=== PATIENT | female | born 1980 | race Caucasian/White ===

== ENCOUNTER 2025-02-17 15:07 | Outpatient (AMB) | payer OTHER, SELFPAY ==
--- NOTE | 2025-02-17 15:10 | A.OFFPC_ITS ---
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 Property Management Accountant Required: No Accompanied by: Self / Same As Patient Allergies No Known Allergies Allergy (Verified 02/17/25 15:10) Tobacco use date assessed: 02/17/25 Dental Screening Dental Screen Date: 02/17/25 Did you have a dental visit in the last 12 months?: No Did you have a dental problem in the last 6 months where you did not have access to dental care?: No Was dental information given to patient?: No HPI HPI Comments History of Present Illness Details History of Present Illness The patient is a 44-year-old female presenting with epigastric pain traveling to the right side and back pain. Epigastric Pain: - Experiences pain in the epigastric are a traveling to the right. - Pain is imani to gallbladder pain, acco mpanied by back pain. Health Maintenance - Discussed weight management as a babs rn. - Weight management clinic mentioned in conversation with reference to [place] location. -needs breast ca screen -needs cervical ca screen Review of Systems - Gastrointestinal: Reports epigastric p ain with radiation to the right side, and back pain. 10-point ROS reviewed and negative excep t as noted in HPI Allergies Medication History - Mentions Dicyclomine as an antispasmod ic used, with several refills available. Past Medical History - Obstructive Sleep Apnea - Panic Disorder - Depression - Post-Traumatic Stress Disorder (PTSD) - Hypertension Past Surgical History - Gastric sleeve procedure on 01/17/2022 - Laparoscopy on 01/17/2022 - Colonoscopy on 02/22/2021 Family History Current Substance Use Substance Use History Physical Exam General: No apparent distress. Alert and oriented x 3. Head: Normocephalic, atraumatic Eyes: Pupils equal, round, and reactive to light. Extraocular movements intact Throat: O ropharynx clear. Mucus membranes moist Neck: Supple. No l eft anterior descending artery distention. No jugular vein distention. No bruit. Cardiovascular: Regular rate and rhythm. Normal S1 and S2. No murmurs, rubs, or gallops Lungs: Clear to auscultation bilaterally. Breath sounds equal bilaterally. No rales, ronchi, or wheezes. Abdomen: Tender on light palpation in the epigastric area. Non-distended. Bowel sounds auscultated. No hepatosplenomegaly. No mass/rebound/guarding Extremities: No c lubbing, cyanosis, and edema. 2+ pulses Neuro: Central nerves II-XII grossly intact. Motor/sensory intact. Reflexes 2. Gait normal Skin: Warm, dry, and intact. No rash. Discussion Notes During the conversation, the patient's ongoing experience of epigastric pain, resembling gallbladder pain and accompanied by back pain, was the primary focus. Further exploration into the potential causes and necessary diagnostic steps, such as blood panels and assessments, were informally considered. Management discussions touched on weight management strategies, with mentions of the clinic in [place] where the patient reports receiving related care. Plan 1. Obstructive Sleep Apnea - Plan includes CPAP compliance and cons ideration of weight loss benefits. 2. Epigastric Pain - Plan involves potential diagnostic blo od panel tests and monitoring of symptoms for further diagnosis and management. Treatment Summary Anticapatory Guidance Patient Instructions - Please adhere to CPAP therapy as recom mended. - Manage weight through healthy dietary choices and consider following up at your weight management clinic. - Monitor and document the frequency, lo cation, and severity of epigastric pain. - Schedule follow-up appointments for fu rther evaluation and management of epigastric and other associated pains. [facility] Medical History (Updated 02/17/25 @ 16:08 by Roby Elise MD) PTSD (post-traumatic stress disorder) Epigastric pain Severe obesity LUIS FERNANDO (obstructive sleep apnea) Depression Panic disorder Morbid obesity Abdominal pain Surgical History (Updated 02/17/25 @ 15:53 by Chaya Neely MA) H/O colonoscopy S/P laparoscopic surgery H/O endoscopy Hx laparoscopic cholecystectomy Bariatric surgery status S/P gastric sleeve procedure Family History (Updated 02/17/25 @ 15:23 by Chaya Neely MA) Father High cholesterol High triglycerides High blood pressure Stroke Mother Uterus cancer High blood pressure Glaucoma (increased eye pressure) Lupus (systemic lupus erythematosus) Social History (Updated 02/17/25 @ 15:12 by Chaya Neely MA) Housing: House Alcohol intake: current Alcohol intake frequency: does not drink Patient Tobacco Use Status: Never used Tobacco service: No Current occupational status: employed Cognitive needs: No Hearing needs: No Vision needs: No Questionnaire PHQ-9 Over the last 2 weeks, how often have you been bothered by any of the following problems? 1. Little interest or pleasure in doing things: not at all 2. Feeling down, depressed, or hopeless: several days 3. Trouble falling or staying asleep, or sleeping too much: several days 4. Feeling tired or having little energy: several days 5. Poor appetite or overeating: several days 6. Feeling bad about yourself - or that you are a failure or have let yourself or your family down: several days 7. Trouble concentrating on things, such as reading the newspaper or watching television: not at all 8. Moving or speaking so slowly that other people could have noticed. Or the opposite - being so fidgety or restless that you have been moving around a lot more than usual: not at all 9. Thoughts that you would be better off or of hurting yourself in some way: not at all Total score: 5 Source: Developed by Drs. Magdi Simon, Kinga Loza, Neymar Pierson and colleagues, with an educational ritu from [employer]. Thrive Questionnaire Date Thrive assessed: 02/17/25 I am a: Patient What is your living situation today?: I have a place to live, but I am worried about losing it in the future Within the past 12 months, did the food you bought not last and you didn't have the money to get more?: Sometimes True Within the past 12 months, did you worry whether your food would run out before you got money to buy more?: Sometimes True Do you have trouble paying for medicines?: Yes Do you have trouble getting transportation to medical appointments?: Yes Do you have trouble paying your heating and electricity bill?: Yes Do you have trouble taking care of your child, family member or friend?: No Are you currently unemployed and looking for a job?: I choose not to answer this question Are you interested in more education?: Yes Please select the resources that you would like help with: Utilities and Job search/training Currently or been in a relationship where the following occur: No concerns reported THRIVE Score: 5 AUDIT C Alcohol Use Questionnaire (AUDIT-C) 1. How often do you have a drink containing alcohol?: Never 3. How often do you have six or more drinks on one occasion?: Never Total Score: 0 QASIM-7 AMB Questionnaire QASIM-7 Date QASIM - 7 assessed: 02/17/25 Feeling nervous, anxious, or on edge: 1 = Several days Not being able to stop or control worryin = Several days Worrying too much about different things: 1 = Several days Trouble relaxin = Several days Being so restless that it is hard to sit still: 1 = Several days Becoming easily annoyed or irritable: 1 = Several days Feeling afraid as if something awful might happen: 0 = Not at all Total QASIM-7 score (0-4 normal; 5-9 mild; 10-14 moderate; 15-21 severe): 6 Source: Developed by Drs. Magdi Simon, Kinga Loza, Neymar Pierson and colleagues, with an educational ritu from [employer]. Physical exam (Primary Care) Tobacco/Smoking Status: Tobacco use Status Patient Tobacco Use Status Never used Tobacco 02/17/25 15:12 Currently or been in a relationship where the following occur: No concerns reported Coding Level of Care Code New Pt Level 3 (12519) Diagnoses Establishing care with new doctor, encounter for Z76.89 Abdominal pain R10.9 Screening for diabetes mellitus Z13.1 Screening for lipoid disorders Z13.220 Encounter for screening mammogram for malignant neoplasm of breast Z12.31 Breast cancer screening modality: mammogram Hypertension screen Z13.6 Screening for depression Z13.31 Class 2 obesity E66.812 Dietary counseling Z71.3 Exercise counseling Z71.82 History of bariatric surgery Z98.84 Herniated gastric pouch as complication of bariatric surgery K95.89 History of sleep apnea Z86.69 Weight gain following gastric bypass surgery R63.5; Z98.84 Hypertension I10 Assessment & Plan Assessment & Plan (1) Establishing care with new doctor, encounter for: Code(s): Z76.89 - Persons encountering health services in other specified circumstances (2) Abdominal pain: Code(s): R10.9 - Unspecified abdominal pain Category: Medical (3) Screening for diabetes mellitus: Code(s): Z13.1 - Encounter for screening for diabetes mellitus (4) Screening for lipoid disorders: Code(s): Z13.220 - Encounter for screening for lipoid disorders (5) Screening for malignant neoplasm of breast: Code(s): Z12.39 - Encounter for other screening for malignant neoplasm of breast Qualifiers: Breast cancer screening modality: mammogram Qualified Code(s): Z12.31 - Encounter for screening mammogram for malignant neoplasm of breast (6) Hypertension screen: Code(s): Z13.6 - Encounter for screening for cardiovascular disorders (7) Screening for depression: Code(s): Z13.31 - Encounter for screening for depression (8) Class 2 obesity: Code(s): E66.812 - Obesity, class 2 (9) Dietary counseling: Code(s): Z71.3 - Dietary counseling and surveillance (10) Exercise counseling: Code(s): Z71.82 - Exercise counseling (11) History of bariatric surgery: Code(s): Z98.84 - Bariatric surgery status (12) Herniated gastric pouch as complication of bariatric surgery: Code(s): K95.89 - Other complications of other bariatric procedure (13) History of sleep apnea: Code(s): Z86.69 - Personal history of other diseases of the nervous system and sense organs (14) Weight gain following gastric bypass surgery: Code(s): R63.5 - Abnormal weight gain; Z98.84 - Bariatric surgery status (15) Hypertension: Code(s): I10 - Essential (primary) hypertension Plan Orders: Orders Complete Blood Count Auto Diff Today - Persons encountering health services in other specified circumstances Hepatitis B Surface Antibody Today - Persons encountering health services in other specified circumstances Hepatitis B Surface Antigen Today . - Persons encountering health services in other specified circumstances HIV Ab/Ag Today . - Persons encountering health services in other specified circumstances Lipid Panel Today - Persons encountering health services in other specified circumstances UA CC w/rflx Micro + Cult Today - Persons encountering health services in other specified circumstances Comprehensive Met. Panel Today - Persons encountering health services in other specified circumstances Hemoglobin A1c Today Z76.89 - Persons encountering health services in other specified circumstances Hepatitis C Antibody Today Z76.89 - Persons encountering health services in other specified circumstances MM screening mammo BI Today Z12.31 - Encounter for screening mammogram for malignant neoplasm of breast Referrals General Surgery Referral K95.89 - Other complications of other bariatric procedure, Z98.84 - Bariatric surgery status Nutrition/Dietitian Referral E66.812 - Obesity, class 2, Z76.89 - Persons encountering health services in other specified circumstances Medical Weight Management Referral E66.812 - Obesity, class 2, K95.89 - Other complications of other bariatric procedure, R63.5 - Abnormal weight gain, Z98.84 - Bariatric surgery status Medications: New omeprazole 20 mg PO DAILY 30 caps 2RF dicyclomine 10 mg PO BID 30 caps 0RF
[2025-02-17 15:16] VITALS: BP 138/86; PULSE 77; RESP 16; TEMP 36.6; O2SAT 100; BMI 38.7
--- OUTSIDE RECORDS SUMMARY | 2025-02-17 17:29 | XMS_ITS | Encounter Summary ---
Author Organization [facility] and [facility] Address [address] [place] [phone] Care Team Providers Care Hot Car Operator Name Role Phone Ivone Brown Primary Care Provider [phone] Reason for Visit * Reason Comments Medication Refill Encounter Details Date Type Department Care Team (Late st Contact Info) Description 11/22/2021 Refill [facility] [address] [place] [address] Sanjuanita Sharp PA [address] [place] [phone] Medication Refill Social History Tobacco Use Types Packs/Day Years Used Date Smoking Tobacco: Never Smokeless Tobacco: Never Alcohol Use Standard Drinks/Week Comments No 0 (1 standard drink = 0.6 oz pur e alcohol) AUDIT-C Answer Date Recorded Q1: How often do you have a drink containing alc ohol? Never 01/20/2021 Average Number of Drinks Not on file 021 Frequency of Binge Drinking Not on file 01/09 Comments No Sex and Gender Information Value Date Recorded Sex Assigned at Female 12/20/2019 12:35 AM EDT Legal Sex Female 5:00 PM EST Gender Identity Female 12/20/2019 12:35 AM EDT Sexual Orientation Not on file documented as of this encounter Plan of Treatment Not on file documented as of this encounter Visit Diagnoses Not on filedocumented in this encounter Additional Health Concerns Infection Onset Date Last Indicated Resolved Time R/O Respiratory Virus 04/09/2022 04/09/20222021 6:39 PM EDT R/O COVID-19 04/09/2022 04/09/2022 04/09/2022 6:39 PM EDT documented as of this encounter Care Teams Hot Car Operator Relationship Specialty Start Date End Date Ivone Brown PA [address] [place] [address] PCP - General Physician Supervisor Sound Technician 08/04/24 documented as of this encounter
--- OUTSIDE RECORDS SUMMARY | 2025-02-17 17:29 | XMS_ITS | Encounter Summary ---
Author Organization [facility] and [facility] Address [address] [place] [phone] Care Team Providers Care Sponge Clipper Name Role Phone Ivone Brown Primary Care Provider [phone] Reason for Visit * Reason Comments Medication Refill Encounter Details Date Type Department Care Team (Late st Contact Info) Description 12/02/2021 Refill [facility] [address] [place] [address] Sanjuanita Sharp PA [address] [place] [phone] Medication Refill Social History Tobacco Use Types [...] documented as of this encounter Care Teams Sponge Clipper Relationship Specialty Start Date End Date Ivone Brown PA [address] [place] [address] PCP - General Physician Trading Specialist 08/04/24 documented as of this encounter
--- OUTSIDE RECORDS SUMMARY | 2025-02-17 17:29 | XMS_ITS | Encounter Summary ---
Author Organization [facility] and [facility] Address [address] [place] [phone] Care Team Providers Care Bioengineer Name Role Phone Ivone Brown Primary Care Provider [phone] Reason for Visit * Reason Comments Medication Refill Encounter Details Date Type Department Care Team (Late st Contact Info) Description 10/22/2021 Refill [facility]Note 3] [address] [place] [address] Sanjuanita Sharp PA [address] [place] [phone] Medication Refill Social History Tobacco Use Types [...] documented as of this encounter Care Teams Bioengineer Relationship Specialty Start Date End Date Ivone Brown PA [address] [place] [address] PCP - General Physician Embossing Press Operator 08/04/24 documented as of this encounter
--- OUTSIDE RECORDS SUMMARY | 2025-02-17 17:30 | XMS_ITS | Encounter Summary ---
Author Organization [facility] and [facility] Address [address] [place] [phone] Care Team Providers Care Consulting Technical Manager Name Role Phone Ivone Brown Primary Care Provider [phone] Encounter Details Date Type Department Care Team (Late st Contact Info) Description 12/07/2020 Scanned Document [facility] at [address] [place] [address] Miguel Angel, RN Social History Tobacco Use Types Packs/Day Years Used Date Smoking Tobacco: Never Alcohol Use Standard Drinks/Week Comments No 0 (1 standard drink = 0.6 oz pur e alcohol) AUDIT-C Answer Date Recorded Frequency of Alcohol Consumption Never 07/16/2018 Average Number of Drinks Not on file 019 Frequency of Binge Drinking Not on file 10/2018 Comments Unknown Sex and Gender Information Value Date Recorded [...] Onset Date Last Indicated Resolved Time R/O COVID-19 01/15/2021 01/15/2021 01/15/2021 3:12 PM EDT R/O COVID-19 02/02/2021 02/02/2021 02/02/2021 3:02 PM EDT R/O COVID-19 04/06/2021 04/06/2021 04/06/2021 3:35 PM EDT R/O Respiratory Virus 04/09/2022 04/09/20222021 6:39 PM EDT R/O COVID-19 04/09/2022 04/09/2022 04/09/2022 6:39 PM EDT documented as of this encounter Care Teams Consulting Technical Manager Relationship Specialty Start Date End Date Ivone Brown PA [address] [place] [phone] PCP - General Physician Petrologist 08/04/24 documented as of this encounter
--- OUTSIDE RECORDS SUMMARY | 2025-02-17 17:30 | XMS_ITS | Encounter Summary ---
Author Organization [facility] Address [address] [place] [address] Phone Care Team Providers Care Inside Technical Sales Representative Name Role Phone Ivone Brown Primary Care Provider [phone] Encounter Details Date Type Department Care Team (Late st Contact Info) Description 08/05/2024 Documentation [facility] [address] [place] [address] Edna Downs LMSW Social History Tobacco Use Types Packs/Day Years Used Date Smoking Tobacco: Never Smokeless Tobacco: Never Alcohol Use Standard Drinks/Week Comments No 0 (1 standard drink = 0.6 oz pur e alcohol) AUDIT-C Answer Date Recorded Q1: How often do you have a drink containing alc ohol? Never 01/20/2021 Average Number of Drinks Not on file Frequency of Binge Drinking Not on file 01/09 Overall Financial Resource Strain (CARDIA) Answe r Date Recorded How hard is it for you to pa y for the very basics like food, housing, medical care, and heating? Somewhat hard 08/04/2024 PHQ-2 Answer Date Recorded PHQ-2 Total Score 4 08/04/2024 Exercise Vital Sign Answer Date Recorde d On average, how many days pe r week do you engage in moderate to strenuous exercise (like a brisk walk)? 6 days 08/04/2024 On average, how many minutes do you engage in exercise at this level? 30 min 08/04/2024 PRAPARE - Transportation Answer Date Re corded In the past 12 months, has l ack of transportation kept you from medical appointments or from getting medications? No 07/13 In the past 12 months, has l ack of transportation kept you from meetings, work, or from getting things needed for daily living? No 08/04/2024 Housing Stability Answer Date Recorded What is your living situation today? I have a st [facility] place to live 08/04/2024 Housing Stability Not on file 08/04/2024 Interpersonal Safety Answer Date Record ed Is there anyone in your life that is hurting or threatening you in anyway? Not on file 03/27/2024 Physical Indicators of Abuse No evidence of phys ical abuse 03/27/2024 Comments No Sex and Gender Information Value Date Recorded Sex Assigned at Female 12/20/2019 12:35 AM EDT Legal Sex Female 5:00 PM EST Gender Identity Female 12/20/2019 12:35 AM EDT Sexual Orientation Not on file documented as of this encounter Plan of Treatment Not on file documented as of this encounter Visit Diagnoses Not on filedocumented in this encounter Additional Health Concerns Assessment Noted Time PHQ-9 Depression Total Score: 15 025 11:31 AM EST documented as of this encounter Care Teams Inside Technical Sales Representative Relationship Specialty Start Date End Date Ivone Brown PA [address] [place] [address] PCP - General Physician Mail Agent 08/04/24 documented as of this encounter
--- OUTSIDE RECORDS SUMMARY | 2025-02-17 17:30 | XMS_ITS | Encounter Summary ---
Author Organization [facility] Address [address] [place] [address] Phone Care Team Providers Care Tax Compliance Representative Name Role Phone Ivone Brown Primary Care Provider [phone] Reason for Visit * Reason Comments Medication Refill Encounter Details Date Type Department Care Team (Late st Contact Info) Description 03/03/2022 Refill [facility] [address] [address] Shannon Nunn MD [address] [place], [place] [phone] Medication Refill Social History Tobacco Use Types [...] documented as of this encounter Visit Diagnoses Diagnosis Seasonal allergies- Primary Allergic rhinitis, cause unspecified documented in this encounter Additional Health Concerns Infection Onset Date Last Indicated Resolved Time R/O Respiratory Virus 04/09/2022 04/09/20222021 6:39 PM EDT R/O COVID-19 04/09/2022 04/09/2022 04/09/2022 6:39 PM EDT documented as of this encounter Care Teams Tax Compliance Representative Relationship Specialty Start Date End Date Ivone Brown PA [address] [place] [phone] PCP - General Physician Crusher Operator 08/04/24 documented as of this encounter
--- OUTSIDE RECORDS SUMMARY | 2025-02-17 17:30 | XMS_ITS | Encounter Summary ---
Author Organization [facility] Address [address] [place] [address] Phone Care Team Providers Care Natural Resources Technician Name Role Phone Ivone Brown Primary Care Provider [phone] Reason for Visit * Reason Comments Medication Refill Encounter Details Date Type Department Care Team (Late st Contact Info) Description 03/06/2023 [place] [address] Shannon Nunn MD [address] [place], [place] [phone] Medication Refill Social History Tobacco Use Types [...] of Binge Drinking Not on file 01/09 PHQ-2 Answer Date Recorded PHQ-2 Total Score 0 03/13/2022 Interpersonal Safety Answer Date Record ed Is there anyone in your life that is hurting or threatening you in anyway? Not on file 01/15/2023 Physical Indicators of Abuse No evidence of phys ical abuse 01/15/2023 Comments No Sex and Gender Information Value Date Recorded Sex Assigned at Female 12/20/2019 12:35 AM EDT Legal Sex Female 5:00 PM EST Gender Identity Female 12/20/2019 12:35 AM EDT Sexual Orientation Not on file documented as of this encounter Plan of Treatment Not on file documented as of this encounter Visit Diagnoses Diagnosis Seasonal allergies Allergic rhinitis, cause unspecified documented in this encounter Additional Health Concerns Assessment Noted Time PHQ-9 Depression Total Score: 0 03/13/20 22 10:00 AM EDT documented as of this encounter Care Teams Natural Resources Technician Relationship Specialty Start Date End Date Ivone Brown PA [address] [place] [phone] PCP - General Physician Data Entry 08/04/24 documented as of this encounter
--- OUTSIDE RECORDS SUMMARY | 2025-02-17 17:30 | XMS_ITS | Encounter Summary ---
Author Organization [facility] ou and Home Health Address [address] [place] [address] Care Team Providers Care Odd Ticket Clerk Name Role Phone Ivone Brown Primary Care Provider [phone] Reason for Visit * Reason Comments Medication Refill Encounter Details Date Type Department Care Team (Late st Contact Info) Description 01/19/2022 Refill [facility] Internal [facility] [place] [address] [address] Perla Gomez PA [address] [place] [phone] Medication Refill Social History Tobacco Use Types [...] AM EDT Sexual Orientation Not on file COVID-19 Exposure Response Date Recorded In the last 10 days, have yo u been in contact with someone who was confirmed or suspected to have Coronavirus/COVID-19? No / Unsure 01/17/2022 9:58 AM EDT documented as of this encounter Plan of Treatment Not on file documented as of this encounter Visit Diagnoses Not on filedocumented in this encounter Additional Health Concerns Infection Onset Date Last Indicated Resolved Time R/O Respiratory Virus 04/09/2022 04/09/20222021 6:39 PM EDT R/O COVID-19 04/09/2022 04/09/2022 04/09/2022 6:3 9 PM EDT documented as of this encounter Care Teams Odd Ticket Clerk Relationship Specialty Start Date End Date Ivone Brown PA [address] [place] [address] PCP - General Physician Washing Machine Operator 08/04/24 documented as of this encounter
--- OUTSIDE RECORDS SUMMARY | 2025-02-17 17:30 | XMS_ITS | Encounter Summary ---
Author Organization [facility] [employer] [facility] and [facility] Address [address] [place] [address] Care Team Providers Care Accountant Cost Name Role Phone Ivone Brown Primary Care Provider [phone] Reason for Visit * Reason Onset Date Comments Medication Refill 07/10/2023 Encounter Details Date Type Department Care Team (Late st Contact Info) Description 07/10/2023 Refill [facility] at [address] [place], [place] [address] Zaheer Mcdaniel MD MPH [address] [place] [address] Medication Refill Social History Tobacco Use Types [...] documented as of this encounter Care Teams Accountant Cost Relationship Specialty Start Date End Date Ivone Brown PA [address] [place] [address] PCP - General Physician Director Of In Service Education 08/04/24 documented as of this encounter
--- OUTSIDE RECORDS SUMMARY | 2025-02-17 17:30 | XMS_ITS | Encounter Summary ---
Author Organization [facility] ou and Home Health Address [address] [place] [address] Care Team Providers Care Anesthesiologist/Physician Name Role Phone Ivone Brown Primary Care Provider [phone] Reason for Visit * Reason Comments Medication Refill Encounter Details Date Type Department Care Team (Late st Contact Info) Description 01/06/2022 Refill [facility] Internal Medicine [place] [address] [address] Perla Gomez PA [address] [place] [phone] Medication Refill Social History Tobacco Use [...] documented as of this encounter Care Teams Anesthesiologist/Physician Relationship Specialty Start Date End Date Ivone Brown PA [address] [place] [address] PCP - General Physician Workday Consultant 08/04/24 documented as of this encounter
--- OUTSIDE RECORDS SUMMARY | 2025-02-17 17:30 | XMS_ITS | Encounter Summary ---
Author Organization [facility] ou and Home Health Address [address] [place] [address] Care Team Providers Care Heating Mechanic Name Role Phone Ivone Brown Primary Care Provider [phone] Reason for Visit * Reason Comments Medication Refill Encounter Details Date Type Department Care Team (Late st Contact Info) Description 03/03/2022 Refill [facility] Internal [facility] [place] [address] [address] Perla Gomez PA [address] [place] [phone] Medication Refill Social History Tobacco Use [...] documented as of this encounter Care Teams Heating Mechanic Relationship Specialty Start Date End Date Ivone Brown PA [address] [place] [address] PCP - General Physician Compliance Engineer 08/04/24 documented as of this encounter
--- OUTSIDE RECORDS SUMMARY | 2025-02-17 17:30 | XMS_ITS | Encounter Summary ---
Author Organization [facility] ou and Home Health Address [address] [place] [address] Care Team Providers Care Gift Packer Name Role Phone Ivone Brown Primary Care Provider [phone] Reason for Visit * Reason Comments Medication Refill Encounter Details Date Type Department Care Team (Late st Contact Info) Description 12/25/2021 Refill [facility] [place] [address] [address] Perla Gomez PA [address] [place] [phone] Medication Refill Social History Tobacco Use [...] documented as of this encounter Care Teams Gift Packer Relationship Specialty Start Date End Date Ivone Brown PA [address] [place] [address] PCP - General Physician Agricultural Economist 08/04/24 documented as of this encounter
--- OUTSIDE RECORDS SUMMARY | 2025-02-17 17:30 | XMS_ITS | Encounter Summary ---
Author Organization [facility] Address [address] [place] [address] Care Team Providers Care Night Warehouse Selector Name Role Phone Ivone Brown Primary Care Provider [phone] Reason for Visit * Reason Comments Medication Refill Encounter Details Date Type Department Care Team (Late st Contact Info) Description 08/20/2021 Refill [facility] at [address] [facility] [address] [place] [address] Sanjuanita Sharp PA [address] [place] [phone] Medication Refill Social History Tobacco Use Types [...] documented as of this encounter Care Teams Night Warehouse Selector Relationship Specialty Start Date End Date Ivone Brown PA [address] [place] [address] PCP - General Physician Property Management Coordinator 08/04/24 documented as of this encounter
--- OUTSIDE RECORDS SUMMARY | 2025-02-17 17:30 | XMS_ITS | Encounter Summary ---
Author Organization [facility] ou and Home Health Address [address] [place] [address] Care Team Providers Care Bakery Demonstrator Name Role Phone Ivone Brown Primary Care Provider [phone] Encounter Details Date Type Department Care Team (Late st Contact Info) Description 08/23/2020 Scanned Document [facility] PM Rheumatology [address] [place], [place] [phone] Rigoberto Bautista MD [address] [place], [place] [phone] [place] [address] Social History Tobacco Use Types Packs/Day Years [...] Exposure Response Date Recorded In the last month, have you been in contact with someone who was confirmed or suspected to have Coronavirus / COVID-19? No / Unsure 08/02/2020 4:10 PM EST documented as of this encounter Plan of [...] documented as of this encounter Care Teams Bakery Demonstrator Relationship Specialty Start Date End Date Ivone Brown PA [address] [place] [address] PCP - General Physician Upsetter Helper 08/04/24 documented as of this encounter
--- OUTSIDE RECORDS SUMMARY | 2025-02-17 17:30 | XMS_ITS | Clinical Summary ---
Author Organization [address] Address [address] [place] [phone] Phone Care Team Providers Care Bean Picker Machine Operator Name Role Phone Ivone Brown Primary Care Provider [phone] Allergies Active Allergy Reactions Criticality Noted Date Comments Asa-Calcium Mrfk-Dqt-Spkwkfno Shortness Of Breath High 01/14/2019 Aspirin 01/17/2019 Latex Shortness Of Breath High 04/20/2022 Penicillins Shortness Of Breath High 02/02/2021 Shellfish Derived 06/12/2019 Medications cholecalciferol, vitamin D3, 10 mcg (400 unit) capsule Take 1 capsule (400 Units total) by mouth daily. Active cyanocobalamin 1000 MCG tablet Take 1 tablet (1,000 mcg total) by mouth daily. Active multivit-min/iro n/folic acid/K (BARIATRIC MULTIVITAMINS ORAL) Take by mouth. Activ e omega-3 fatty acids 1,000 mg capsule Take 2 capsules (2 g total) by mouth daily. Active biotin 1 mg Cap Take by mouth. Active microfibrllar collagen (HEMOSTAT) 70 X 35 mm pad Apply topically as needed. Active dicyclomine (BENTYL) 20 mg tablet Take 1 tablet (20 mg total) by mouth 4 (four) times daily as needed for pain for up to 5 days. 20 tablet 03/27/20 Active nystatin (MYCOSTATIN) 100,000 unit/gram powderIndication s:Rash,Candidias is, intertrigo Apply 1 Application topically 3 (three) times daily. 60 g 1 08/04/19 25 Active atenolol (TENORMIN) 50 MG tablet Take 50 mg by mouth daily 2021 Discontinued Active Problems Problem Noted Date Diagnosed Date S/P gastric sleeve procedure 03/13/2022 Bariatric surgery status 03/13/2022 Morbid obesity (HC Code) 01/17/2022 Panic disorder 01/03/2021 Depression 01/03/2021 Severe LUIS FERNANDO (obstructive slee p apnea) AHI 34.3 events/hour, Edgardo SaO2 72% [Dx 08/2020] 09/20/2020 Overview (09/20/2020): PSG 09/03/20 - AHI 34 Severe obesity (HC Code) wt 350 pounds Epigastric pain 06/12/2019 PTSD (post-traumatic stress disorder) Resolved Problems Problem Noted Date Diagnosed Date Resolved Date Essential hypertension 07/16/202008/04 Family History Medical History Relation Name Comments Thyroid disease Brother High cholesterol Father Hypertension Father Stroke Father Blindness Mother Cancer Mother Uterine Cataracts Mother Diabetes Mother Hypertension Mother Kidney disease Mother Lung disease Mother Colon cancer Sister Relation Name Status Comments Brother Father CVA Mother of an acci dent Sister Alive Social History Tobacco Use Types Packs/Day Years Used Date Smoking Tobacco: Never Smokeless Tobacco: Never Tobacco Cessation:Counseling Given: Not Answered Alcohol Use Standard Drinks/Week Comments No 0 [...] your living situation today? I have a [facility] place to live 08/04/2024 Housing Stability Not [...] AM EDT Sexual Orientation Not on file Last Filed Vital Signs Vital Sign Reading Time Taken Comments Blood Pressure 124/72 08/04/2024 11:39 AM EST Pulse 60 08/04/2024 11:39 AM EST Temperature 37.2 C (99 F) 08/04/2024 11:39 AM EST Respiratory Rate 14 08/04/2024 11:39 AM EST Oxygen Saturation 98% 08/04/2024 11:39 AM EST Inhaled Oxygen Concentration - - Weight 93.7 kg (206 lb 9.6 oz) 08/04/2024 11:39 AM EST Height 166.4 cm (5' 5.5 ) 08/04/2024 11:39 AM ES T Body Mass Index 33.86 08/04/2024 11:39 AM EST Plan of Treatment Health Maintenance Due Date Last Done Comments HIV screening 11/02/1991 Hepatitis C screening 1996 Tetanus adult (Td q 10,TDAP once) 1998 Cervical cancer screening 11/02/1999 Breast cancer screening 2018 Covid-19 vaccine series ( season) 2025 Influenza vaccine 02/09/2025 Lipid disorder screening 01/24/2026 01/24/2021 Diabetes screening 03/27/2027 03/27/2024, 0 12/26/2022, 04/09/2022, Additional history exists Colon cancer screening, Colonoscopy 02/22/2031 02/22/2021, 02/22/2021 RSV Immunization (1 - 1-dose 75+ series) 2053 Meningococcal B Vaccine Aged Out No l onger eligible based on patient's age to complete this topic Meningococcal Vaccine Aged Out No joelle pooja eligible based on patient's age to complete this topic Pneumococcal Vaccine (2 - 49 years) Aged Out No longer eligible based on patient's age to complete this topic Procedures Procedure Name Priority Date/Time Associated Diagnosis Comments COMPREHENSIVE METABOLIC PANEL Timed 03/27/2024 9:23 AM EDT COLONOSCOPY (IMAGES) Routine 02/22/2021 7:24 AM EDT CHOLESTEROL, TOTAL Routine 01/24/2021 10 :51 AM EDT Severe obesity (HC Code) wt 350 pounds Essential hypertension Severe LUIS FERNANDO (obstructive sleep apnea) AHI 34.3 events/hour, Edgardo SaO2 72% [Dx 08/2020] from Last 3 Months or Most Recently Relevant to Health Maintenance Results * (ABNORMAL) Comprehensive metabolic panel (03/27/2024 9:23 AM EDT) Sodium 140 136 - 144 mmol/L 03/27/2024 10:00 AM [facility] Potassium 3.9 3.3 - 5.3 mmol/L 03/27/2024 10:00 AM T [facility] Chloride 106 98 - 107 mmol/L 03/27/2024 10:00 AM T [facility] CO2 28 20 - 30 mmol/L 03/27/2024 10:00 AM [facility] Anion Gap 6(L) 7 - 17 03/27/2024 10:00 AM [facility] Glucose 88 70 - 100 mg/dL 03/27/2024 10:00 AM [facility] BUN 15 6 - 20 mg/dL 03/27/2024 10:00 AM [facility] Creatinine 0.67 0.40 - 1.30 mg/dL 03/27/2024 10:00 AM [facility] Calcium 8.8 8.8 - 10.2 mg/dL 03/27/2024 10:00 AM [facility] BUN/Creatinine Ratio 22.4 8.0 - 23.0 03/27/2024 10:00 AM [facility] Total Protein 6.6 5.9 - 8.3 g/dL 024 10:00 AM [facility] Comment:As of 2023, th e reference interval for Total Protein has been changed from (6.6 to 8.7 g/dL) to (5.9 to 8.3 g/dL). Albumin 3.5(L) 3.6 - 5.1 g/dL 03/27/2024 10:00 AM [facility] Comment:As of 2023, th e reference interval for Albumin has been changed from (3.6 to 4.9 g/dL) to (3.6 to 5.1 g/dL). Total Bilirubin 0.4 <=1.2 mg/dL 03/27/20 24 10:00 AM [facility] Alkaline Phosphatase 67 9 - 122 U/L 03/27/2024 10:00 AM [facility] Alanine Aminotransferase (ALT) 16 10 - 35 U/L 03/27/2024 10:00 AM [facility] Comment:Calcium dobesilate c an cause artificially low ALT results at therapeutic concentrations Aspartate Aminotransferase (AST) 20 10 - 35 U/L 03/27/2024 10:00 AM [facility] Globulin 3.1 2.0 - 3.9 g/dL 03/27/2024 10:00 AM [facility] Comment:As of 2023, th e reference interval for Globulin has been changed from (2.3 to 3.5 g/dL) to (2.0 to 3.9 g/dL). A/G Ratio 1.1 1.0 - 2.2 03/27/2024 10:00 AM [facility] AST/ALT Ratio 1.3 Reference Range Not Established 03/27/2024 10:00 AM [facility] eGFR (Creatinine) >60 >=60 mL/min/1.73m2 03/27/2024 10:00 AM EDT [facility] Comment: [facility] utilizes CKD-EPI Creatinine 2020 to report eGFR. Values < 60 mL/min/1.73 m2 may indicate CKD if present for more than three months AND creatinine is at steady state. The eGFR provides a rough estimate of kidney function. For further guidance, please refer to the CKD: Adult Classification Counselor Signature pathway. Blood Venipuncture / Unknown 03/27/2024 9:23 AM EDT 03/27/2024 9:33 AM EDT us Breana Estrada MD LAB BLOOD ORDERABLES Fin al Result [address] [phone] * Colonoscopy (02/22/2021 7:24 AM EDT) Colonoscopy Endoscopy Patient Name: Joaquin De León Procedure Date: 02/22/2021 7:24 AM Date of : 1980 Age: 40 Gender: Female Admit Type: Outpatient [facility] #: [id number] Note Status: Finalized Attending MD: Radha Mckeon MD Procedure: Colonoscopy Indications: Screening in patient at increased risk: Family history of 1st-degree relative with colorectal cancer before age 60 years Providers: Radha Mckeon MD Referring MD: Shannon Nunn (Referring MD) Medicines: Monitored Anesthesia Care Complications: No immediate complications. Requesting Provider: Procedure: After obtaining informed consent, the scope was passed under direct vision. Throughout the procedure, the patient's blood pressure, pulse, and oxygen saturations were monitored continuously. The [id number] was introduced through the anus and advanced to the cecum, identified by appendiceal orifice and ileocecal valve. The colonoscopy was performed without difficulty. The patient tolerated the procedure well. The quality of the bowel preparation was evaluated using the BBPS ([place] Bowel Preparation Scale) with scores of: Right Colon = 3, Transverse Colon = 3 and Left Colon = 3 (entire mucosa seen well with no residual staining, small fragments of stool or opaque liquid). The total BBPS score equals 9. Findings: A 6 mm polyp was found in the ascending colon. The polyp was semi-sessile. The polyp was removed with a cold snare. Resection and retrieval were complete. Multiple diverticula were found in the sigmoid colon, descending colon and ascending colon. Internal hemorrhoids were found. Impression: - One 6 mm polyp in the ascending colon, removed with a cold snare. Resected and retrieved. - Diverticulosis in the sigmoid colon, in the descending colon and in the ascending colon. - Internal hemorrhoids. Recommendation: - Repeat colonoscopy in 5 years for surveillance based on pathology results. Procedure Code(s): --- Professional --- 93109, Colonoscopy, flexible; with removal of tumor(s), polyp(s), or other lesion(s) by snare technique Diagnosis Code(s): --- Professional --- Z80.0, Family history of malignant neoplasm of digestive organs K63.5, Polyp of colon K64.8, Other hemorrhoids K57.30, Diverticulosis of large intestine without perforation or abscess without bleeding CPT copyright 2020 [employer]. All rights reserved. The codes documented in this report are preliminary and upon c++ professor review may be revised to meet current compliance requirements. Attending Participation: I was present and participated during the entire procedure, including non-carrasquillo portions. ___ Radha Mckeon MD 02/22/2021 1:44:31 PM This report has been signed electronically. Number of Addenda: 0 Note Initiated On: 02/22/2021 7:24 AM Estimated Blood Loss: Estimated blood loss was minimal. Scope In: Scope Out: [facility] 02/22/2021 7:24 AM EDT us Shannon Nunn MD GI PROCEDURE ORDERABLES Final Result [facility] * Cholesterol, total (01/24/2021 10:51 AM EDT) Cholesterol, Total 147 <200 mg/dL [facility] Blood 01/24/2021 10:5 1 AM EDT 01/24/2021 10:52 AM EDT Narrative [facility] - 01/29/2021 11:40 AM EDT FASTING:YES FASTING: YES Resulting Agency Comment Performing Lab: Site ID: [id number] Name: [email or web address] Address: [address] [place] [address], [place] [address] Director: Bianca Senior M.D. us Zaheer Mcdaniel MD MPH LAB BLOOD ORDERABLES Final Result Performing Organization Address City/[facility] Co de Phone Number [facility] [address] [place] [address] from Last 3 Months or Most Recently Relevant to Health Maintenance Insurance [place]ICAID [place] Advance Directives * Full ACLS (Latest Code Status on File) Date Activated Date Inactivated Comments 01/17/2022 6:12 PM 01/20/2022 2:42 PM Care Teams Bean Picker Machine Operator Relationship Specialty Start Date End Date Ivone Brown PA [address] [place] [address] PCP - General Physician Retoucher 08/04/24
--- OUTSIDE RECORDS SUMMARY | 2025-02-17 17:30 | XMS_ITS | Encounter Summary ---
Author Organization [facility] Address [address] [place] [address] Care Team Providers Care Optical Glass Silverer Name Role Phone Ivone Brown Primary Care Provider [phone] Reason for Visit * Reason Comments Medication Refill Encounter Details Date Type Department Care Team (Late st Contact Info) Description 09/26/2021 Refill [facility] at [address] [facility] [address] [place] [address] Sanjuanita Sharp PA [address] [place] [phone] Medication Refill Social History Tobacco Use Types [...] documented as of this encounter Care Teams Optical Glass Silverer Relationship Specialty Start Date End Date Ivone Brown PA [address] [place] [address] PCP - General Physician Compliance Tester 08/04/24 documented as of this encounter
--- OUTSIDE RECORDS SUMMARY | 2025-02-17 17:30 | XMS_ITS | Encounter Summary ---
Author Organization [facility] Address [address] [place] [address] Phone Care Team Providers Care Lean Manager Name Role Phone Ivone Brown Primary Care Provider [phone] Reason for Visit * Reason Comments Medication Refill Encounter Details Date Type Department Care Team (Late st Contact Info) Description 01/19/2022 Refill [facility] [address] [address] Shannon Nunn MD [address] [place], [place] [phone] Medication Refill Social History Tobacco Use Types [...] documented as of this encounter Care Teams Lean Manager Relationship Specialty Start Date End Date Ivone Brown PA [address] [place] [address] PCP - General Physician Product Expert 08/04/24 documented as of this encounter
--- OUTSIDE RECORDS SUMMARY | 2025-02-17 17:30 | XMS_ITS | Encounter Summary ---
Author Organization [facility] Address [address] [place] [address] Phone Care Team Providers Care County Bailiff Name Role Phone Ivone Brown Primary Care Provider [phone] Reason for Visit * Reason Comments Medication Refill Encounter Details Date Type Department Care Team (Late st Contact Info) Description 02/13/2023 [place] [address] Shannon Nunn MD [address] [place], [place] [phone] Medication Refill Social History Tobacco Use Types [...] documented as of this encounter Care Teams County Bailiff Relationship Specialty Start Date End Date Ivone Brown PA [address] [place] [address] PCP - General Physician Top Tile Decorator 08/04/24 documented as of this encounter
--- OUTSIDE RECORDS SUMMARY | 2025-02-17 17:30 | XMS_ITS | Encounter Summary ---
Author Organization [facility] [employer] [facility] and [facility] Address [address] [place] [phone] Care Team Providers Care Horse Stud Manager Name Role Phone Ivone Brown Primary Care Provider [phone] Encounter Details Date Type Department Care Team (Latest Contact Info) Description 01/05/2022 Transcribed Orders [place] [address] Zaheer Mcdaniel MD MPH [address] [facility] [address] [place] [address] Severe obesity (HC Code) (HC CODE) (HC Code) (Primary Dx); LUIS FERNANDO (obstructive sleep apnea); Essential hypertension Social History Tobacco Use Types Packs/Day Years [...] on file documented as of this encounter Results * EKG (01/05/2022 8:42 AM EDT) Heart Rate 66 bpm [facility] ECG QRS Duration 90 ms [facility] ECG Q-T Interval 412 ms [facility] ECG QTC Calculation(Be zet) 431 ms [facility] ECG P [place] 41 deg [facility] ECG R [place] 70 deg [facility] ECG T [place] 31 deg [facility] ECG P-R Interval 150 msec [facility] ECG SEVERITY Normal ECG severity [facility] ECG Comment::Normal sinus rhythm :Normal ECG:Electronically Signed On 01-05-2022 18:52:20 EDT by AR METZ MD 01/05/2022 8:42 AM EDT us Zaheer Mcdaniel MD MPH ECG ORDERABLES Final Resul t [facility] ECG documented in this encounter Visit Diagnoses Diagnosis Severe obesity (HC Code) (HC CODE)- Primary Morbid obesity LUIS FERNANDO (obstructive sleep apnea) Obstructive sleep apnea (adult) (pediatric) Essential hypertension Unspecified essential hypertension documented in this encounter Additional Health Concerns Infection Onset Date Last Indicated Resolved Time R/O Respiratory Virus 04/09/2022 04/09/20222021 6:39 PM EDT R/O COVID-19 04/09/2022 04/09/2022 04/09/2022 6:39 PM EDT documented as of this encounter Care Teams Horse Stud Manager Relationship Specialty Start Date End Date Ivone Brown PA [address] [place] [phone] PCP - General Physician Associate Professor Of Psychology 08/04/24 documented as of this encounter
--- OUTSIDE RECORDS SUMMARY | 2025-02-17 17:30 | XMS_ITS | Encounter Summary ---
Author Organization [facility] Address [address] [place] [address] Phone Care Team Providers Care Commercial Illustrator Name Role Phone Ivone Brown Primary Care Provider Reason for Visit * Reason Comments Medication Refill Encounter Details Date Type Department Care Team (Late st Contact Info) Description 12/18/2022 Refill [facility] [address] [address] Shannon Nunn MD [address] [place], [place] [phone] Medication Refill Social History Tobacco Use Types [...] Date Recorded PHQ-2 Total Score 0 03/13/2022 Comments No Sex and Gender Information Value [...] documented as of this encounter Care Teams Commercial Illustrator Relationship Specialty Start Date End Date Ivone Brown PA [address] [place] [address] PCP - General Physician Auth Specialist 08/04/24 documented as of this encounter
--- OUTSIDE RECORDS SUMMARY | 2025-02-17 17:30 | XMS_ITS | Encounter Summary ---
Author Organization [facility] [employer] [facility] and [facility] Address [address] [place] [address] Care Team Providers Care Forestry Faculty Member Name Role Phone Ivone Brown Primary Care Provider [phone] Encounter Details Date Type Department Care Team (Late st Contact Info) Description 10/04/2020 Scanned Document [facility] at [address] [place], [place] [address] Zaheer Mcdaniel MD MPH [address] [place] [address] Social History Tobacco Use Types Packs/Day Years [...] Last Indicated Resolved Time R/O COVID-19 01/15/2021 01/15/202101/15/2021 3:12 PM EDT R/O COVID-19 02/02/2021 02/02/2021 02/02/2021 3:02 PM EDT R/O COVID-19 04/06/2021 04/06/2021 04/06/2021 3:35 PM EDT R/O Respiratory Virus 04/09/2022 04/09/20222021 6:39 PM EDT R/O COVID-19 04/09/2022 04/09/2022 04/09/2022 6:39 PM EDT documented as of this encounter Care Teams Forestry Faculty Member Relationship Specialty Start Date End Date Ivone Brown PA [address] [place] [phone] PCP - General Physician Electrical Appliance Mechanic 08/04/24 documented as of this encounter
--- OUTSIDE RECORDS SUMMARY | 2025-02-17 17:30 | XMS_ITS | Patient Health Record ---
Author Organization [facility], Address [address] [place] [address] Support Name Relationship Address Phone Joaquin Crenshaw Guarantor Unknown [phone] Reason For Referral No Information Problems No Known Problems Plan Of Treatment No Information Insurance Providers Payer Name Payer Address Payer Phone Subscriber Number Group Number Insured Name Patient Relationship to Insured Coverage Start Date Coverage End Date Medicaid of [place] [address] [place] [address] [id number] Joaquin Crenshaw Self - patient is the insured
--- OUTSIDE RECORDS SUMMARY | 2025-02-17 17:30 | XMS_ITS | Encounter Summary ---
Author Organization [facility] [email or web address] [facility] and [facility] Address [address] [place] [address] Care Team Providers Care Rebar Worker Name Role Phone Ivone Brown Primary Care Provider [phone] Encounter Details Date Type Department Care Team (Late st Contact Info) Description 08/23/2020 Scanned Document [facility] 40 [facility] 40 [facility] [address] [place] [address] Perla Gomez PA [address] [place] [address] Social History Tobacco Use Types Packs/Day Years [...] documented as of this encounter Care Teams Rebar Worker Relationship Specialty Start Date End Date Ivone Brown PA [address] [place] [phone] PCP - General Physician Pilot Plant Technician 08/04/24 documented as of this encounter
== END 2025-02-17 16:09 | disposition home or self-care (01) ==
LOC: HO.HMCFMS 15:07
PROVIDERS: PCP Student in an Organized Health Care Education/Training Program; Visit Provider Student in an Organized Health Care Education/Training Program
DX: K95.89 Other complications of other bariatric procedure (principal); R10.9 Unspecified abdominal pain; E66.812 Obesity, class 2; Z98.84 Bariatric surgery status; R63.5 Abnormal weight gain; I10 Essential (primary) hypertension

== ENCOUNTER → 2025-02-17 15:07 | Outpatient (BNVA) | payer OTHER, SELFPAY | PROVIDERS: Visit Provider Student in an Organized Health Care Education/Training Program | DX: Z76.89 Persons encountering health services in other specified circumstances (principal); R10.13 Epigastric pain; E66.812 Obesity, class 2; Z68.38 Body mass index [BMI] 38.0-38.9, adult; K95.89 Other complications of other bariatric procedure; I10 Essential (primary) hypertension; G47.33 Obstructive sleep apnea (adult) (pediatric); Z98.84 Bariatric surgery status; Z13.30 Encounter for screening examination for mental health and behavioral disorders, unspecified; Z13.39 Encounter for screening examination for other mental health and behavioral disorders | CPT/HCPCS: 99202 ==

== ENCOUNTER 2025-02-18 12:23 | Outpatient (REF) | payer OTHER, SELFPAY ==
--- OUTSIDE RECORDS SUMMARY | 2025-02-18 15:26 | XMS_ITS | Encounter Summary ---
Author Organization [facility] Address [address] [place] [address] Phone Care Team Providers Care Flight Operations Manager Name Role Phone Ivone Brown Primary Care Provider [phone] Reason for Visit * Reason Comments Medication Refill Encounter Details Date Type Department Care Team (Late st Contact Info) Description 02/13/2023 [place] [address] Shannon Nunn MD [address] [place], [place] [phone] Medication Refill Social History Tobacco Use Types [...] documented as of this encounter Care Teams Flight Operations Manager Relationship Specialty Start Date End Date Iovne Brown PA [address] [place] [address] PCP - General Physician Credit Coordinator 08/04/24 documented as of this encounter
--- OUTSIDE RECORDS SUMMARY | 2025-02-18 15:26 | XMS_ITS | Encounter Summary ---
Author Organization [facility] Address [address] [place] [address] Care Team Providers Care Bottle Caser Name Role Phone Ivone Brown Primary Care Provider [phone] Encounter Details Date Type Department Care Team (Late st Contact Info) Description 08/23/2020 Scanned Document [facility] Rheumatology [address] [place], [place] [phone] Rigoberto Bautista MD [address] [place], [place] [address] [place] [address] Social History Tobacco Use Types [...] documented as of this encounter Care Teams Bottle Caser Relationship Specialty Start Date End Date Ivone Brown PA [address] [place] [phone] PCP - General Physician Family Readiness Support Assistant 08/04/24 documented as of this encounter
--- OUTSIDE RECORDS SUMMARY | 2025-02-18 15:26 | XMS_ITS | Encounter Summary ---
Author Organization [email or web address] and [facility] Address [address] [place] [address] Care Team Providers Care Tea And Spice Supervisor Name Role Phone Ivone Brown Primary Care Provider [phone] Reason for Visit * Reason Comments Medication Refill Encounter Details Date Type Department Care Team (Late st Contact Info) Description 09/26/2021 Refill [facility] at [facility]A [facility] [address] [place] [address] Sanjuanita Sharp PA [address] [place] [phone] Medication Refill Social History Tobacco Use Types [...] documented as of this encounter Care Teams Tea And Spice Supervisor Relationship Specialty Start Date End Date Ivone Brown PA [address] [place] [address] PCP - General Physician Seam Steamer 08/04/24 documented as of this encounter
--- OUTSIDE RECORDS SUMMARY | 2025-02-18 15:26 | XMS_ITS | Encounter Summary ---
Author Organization [facility] Address [address] [place] [address] Phone Care Team Providers Care Hose Cementer Name Role Phone Ivone Brown Primary Care Provider [phone] Reason for Visit * Reason Comments Medication Refill Encounter Details Date Type Department Care Team (Late st Contact Info) Description 03/06/2023 [place] [address] Shannon Nunn MD [address] [place], [place] [phone] Medication Refill Social History Tobacco Use Types [...] documented as of this encounter Care Teams Hose Cementer Relationship Specialty Start Date End Date Ivone Brown PA [address] [place] [address] PCP - General Physician Dietitian Teaching 08/04/24 documented as of this encounter
--- OUTSIDE RECORDS SUMMARY | 2025-02-18 15:26 | XMS_ITS | Encounter Summary ---
Author Organization [facility] Address [address] [place] [address] Care Team Providers Care Electroencephalograph Technician Name Role Phone Ivone Brown Primary Care Provider [phone] Reason for Visit * Reason Comments Medication Refill Encounter Details Date Type Department Care Team (Late st Contact Info) Description 03/03/2022 Refill [facility] [place] [address] [address] Perla Gomez PA [address] [place] [address] Medication Refill Social History Tobacco Use [...] documented as of this encounter Care Teams Electroencephalograph Technician Relationship Specialty Start Date End Date Ivone Brown PA [address] [place] [address] PCP - General Physician Computer Installer 08/04/24 documented as of this encounter
--- OUTSIDE RECORDS SUMMARY | 2025-02-18 15:26 | XMS_ITS | Encounter Summary ---
Author Organization [facility] [employer] [facility] and [facility] Address [address] [place] [address] Care Team Providers Care Floral Merchandiser Name Role Phone Ivone Brown Primary Care Provider [phone] Encounter Details Date Type Department Care Team (Late st Contact Info) Description 08/23/2020 Scanned Document [facility] 40 [facility] 40 [facility] [address] [place] [address] Perla Gomez PA [address] [place] [address] Social History Tobacco Use Types [...] documented as of this encounter Care Teams Floral Merchandiser Relationship Specialty Start Date End Date Ivone Brown PA [address] [place] [phone] PCP - General Physician Steam Bone Press Tender 08/04/24 documented as of this encounter
--- OUTSIDE RECORDS SUMMARY | 2025-02-18 15:26 | XMS_ITS | Encounter Summary ---
Author Organization [facility] [employer] [facility] and [facility] Address [address] [place] [address] Care Team Providers Care Straightedge Machine Operator Helper Name Role Phone Ivone Brown Primary Care Provider [phone] Encounter Details Date Type Department Care Team (Latest Contact Info) Description 01/05/2022 Transcribed Orders [facility] [address] Zaheer Mcdaniel MD MPH [address] [facility] [address] [place] [address] Severe obesity (HC Code) (HC [...] 8:42 AM EDT) Heart Rate 66 bpm [facility] ECG QRS Duration 90 ms [facility] ECG Q-T Interval 412 ms [facility] ECG QTC Calculation(Be zet) 431 ms [facility] ECG P [place] 41 deg [facility] ECG R [place] 70 deg [facility] ECG T [place] 31 deg [facility] ECG P-R Interval 150 msec [facility] ECG SEVERITY Normal ECG severity [facility] ECG Comment::Normal sinus rhythm :Normal ECG:Electronically Signed On 01-05-2022 18:52:20 EDT by AR METZ MD 01/05/2022 8:42 AM EDT us Zaheer Mcdaniel MD MPH ECG ORDERABLES Final Resul t [facility] ECG documented in this encounter Visit [...] documented as of this encounter Care Teams Straightedge Machine Operator Helper Relationship Specialty Start Date End Date Ivone Brown PA [address] [place] [phone] PCP - General Physician Assembler Fishing Floats 08/04/24 documented as of this encounter
--- OUTSIDE RECORDS SUMMARY | 2025-02-18 15:26 | XMS_ITS | Encounter Summary ---
Author Organization [facility] Address [address] [place] [address] Phone Care Team Providers Care Accounts Receivable Coordinator Name Role Phone Ivone Brown Primary Care Provider [phone] Reason for Visit * Reason Comments Medication Refill Encounter Details Date Type Department Care Team (Late st Contact Info) Description 03/03/2022 Refill [facility] [address] [address] Shannon Nunn MD [address] [place], [place] [phone] Medication Refill Social History Tobacco Use Types [...] documented as of this encounter Care Teams Accounts Receivable Coordinator Relationship Specialty Start Date End Date Ivone Brown PA [address] [place] [phone] PCP - General Physician Director Furniture 08/04/24 documented as of this encounter
--- OUTSIDE RECORDS SUMMARY | 2025-02-18 15:26 | XMS_ITS | Clinical Summary ---
Author Organization [address] Address [address] [place] [address] Phone Care Team Providers Care Media Associate Name Role Phone Ivone Brown Primary Care Provider [phone] Allergies Active Allergy Reactions Criticality Noted Date Comments Asa-Calcium Alqb-Kth-Ilnmgryh Shortness Of Breath High 01/14/2019 Aspirin 01/17/2019 [...] your living situation today? I have a [facility] place to live 08/04/2024 Housing Stability Not [...] 136 - 144 mmol/L 03/27/2024 10:00 AM [facility] Potassium 3.9 3.3 - 5.3 mmol/L 03/27/2024 10:00 AM T [facility] Chloride 106 98 - 107 mmol/L 03/27/2024 10:00 AM T [facility] CO2 28 20 - 30 mmol/L 03/27/2024 10:00 AM [facility] Anion Gap 6(L) 7 - 17 03/27/2024 10:00 AM [facility] Glucose 88 70 - 100 mg/dL 03/27/2024 10:00 AM [facility] BUN 15 6 - 20 mg/dL 03/27/2024 10:00 AM [facility] Creatinine 0.67 0.40 - 1.30 mg/dL 03/27/2024 10:00 AM [facility] Calcium 8.8 8.8 - 10.2 mg/dL 03/27/2024 10:00 AM [facility] BUN/Creatinine Ratio 22.4 8.0 - 23.0 03/27/2024 10:00 AM [facility] Total Protein 6.6 5.9 - 8.3 g/dL 024 10:00 AM [facility] Comment:As of 2023, th e reference interval for Total Protein has been changed from (6.6 to 8.7 g/dL) to (5.9 to 8.3 g/dL). Albumin 3.5(L) 3.6 - 5.1 g/dL 03/27/2024 10:00 AM [facility] Comment:As of 2023, th e reference interval for Albumin has been changed from (3.6 to 4.9 g/dL) to (3.6 to 5.1 g/dL). Total Bilirubin 0.4 <=1.2 mg/dL 03/27/20 24 10:00 AM [facility] Alkaline Phosphatase 67 9 - 122 U/L 03/27/2024 10:00 AM [facility] Alanine Aminotransferase (ALT) 16 10 - 35 U/L 03/27/2024 10:00 AM [facility] Comment:Calcium dobesilate c an cause artificially low ALT results at therapeutic concentrations Aspartate Aminotransferase (AST) 20 10 - 35 U/L 03/27/2024 10:00 AM [facility] Globulin 3.1 2.0 - 3.9 g/dL 03/27/2024 10:00 AM [facility] Comment:As of 2023, th e reference interval for Globulin has been changed from (2.3 to 3.5 g/dL) to (2.0 to 3.9 g/dL). A/G Ratio 1.1 1.0 - 2.2 03/27/2024 10:00 AM [facility] AST/ALT Ratio 1.3 Reference Range Not Established 03/27/2024 10:00 AM [facility] eGFR (Creatinine) >60 >=60 mL/min/1.73m2 03/27/2024 10:00 AM EDT [facility] Comment: [facility] utilizes CKD-EPI Creatinine 2020 to report eGFR. Values < 60 mL/min/1.73 m2 may indicate CKD if present for more than three months AND creatinine is at steady state. The eGFR provides a rough estimate of kidney function. For further guidance, please refer to the CKD: Adult Cover Seamer Signature pathway. Blood Venipuncture / Unknown 03/27/2024 9:23 AM EDT 03/27/2024 9:33 AM EDT us Breana Estrada MD LAB BLOOD ORDERABLES Fin al Result [address] [phone] * Colonoscopy (02/22/2021 7:24 AM EDT) Colonoscopy Endoscopy Patient Name: Joaquin De León Procedure Date: 02/22/2021 7:24 AM Date of : 1980 Age: 40 Gender: Female Admit Type: Outpatient [facility] #: [id number] Note Status: Finalized Attending MD: Radha Mckeon [...] oxygen saturations were monitored continuously. The [id number] was introduced through the anus and advanced to the cecum, identified by appendiceal orifice and ileocecal valve. The colonoscopy was performed without difficulty. The patient tolerated the procedure well. The quality of the bowel preparation was evaluated using the BBPS ([place] Bowel Preparation Scale) with scores of: Right [...] pathology results. Procedure Code(s): --- Professional --- 32154, Colonoscopy, flexible; with removal of tumor(s), polyp(s), or other lesion(s) by snare technique Diagnosis Code(s): --- Professional --- Z80.0, Family history of malignant neoplasm of digestive organs K63.5, Polyp of colon K64.8, Other hemorrhoids K57.30, Diverticulosis of large intestine without perforation or abscess without bleeding CPT copyright 2020 [employer]. All rights reserved. The codes documented in this report are preliminary and upon hand deicer element winder review may be revised to meet current compliance requirements. Attending Participation: I was present and participated during the entire procedure, including non-carrasquillo portions. ___ Radha Mckeon MD 02/22/2021 1:44:31 PM This report has been signed electronically. Number of Addenda: 0 Note Initiated On: 02/22/2021 7:24 AM Estimated Blood Loss: Estimated blood loss was minimal. Scope In: Scope Out: [facility] [employer] 02/22/2021 7:24 AM EDT us Shannon Nunn MD GI PROCEDURE ORDERABLES Final Result [facility] * Cholesterol, total (01/24/2021 10:51 AM EDT) Cholesterol, Total 147 <200 mg/dL [facility] Blood 01/24/2021 10:5 1 AM EDT 01/24/2021 10:52 AM EDT Narrative [facility] - 01/29/2021 11:40 AM EDT FASTING:YES FASTING: YES Resulting Agency Comment Performing Lab: Site ID: [id number] Name: iodine-iodine Address: [address] [place] [address], [place] [address] Director: Bianca Senior M.D. us Zaheer Mcdaniel MD MPH LAB BLOOD ORDERABLES Final Result Performing Organization Address City/[facility] Co de Phone Number [facility] [address] [place] [address] from Last 3 Months or Most Recently Relevant to Health Maintenance Insurance [place] Advance Directives * Full ACLS (Latest Code Status on File) Date Activated Date Inactivated Comments 01/17/2022 6:12 PM 01/20/2022 2:42 PM Care Teams Media Associate Relationship Specialty Start Date End Date Ivone Brown PA [address] [place] [address] PCP - General Physician Account Administrator 08/04/24
--- OUTSIDE RECORDS SUMMARY | 2025-02-18 15:26 | XMS_ITS | Encounter Summary ---
Author Organization [facility] [employer] [facility] and [facility] Address [address] [place] [address] Care Team Providers Care Computer Aided Design Drafter Name Role Phone Ivone Brown Primary Care Provider [phone] Reason for Visit * Reason Onset Date Comments Medication Refill 07/10/2023 Encounter Details Date Type Department Care Team (Late st Contact Info) Description 07/10/2023 Refill [facility] at [address] [place], [place] [address] Zaheer Mcdaniel MD MPH [address] [place] [address] Medication Refill Social History Tobacco [...] documented as of this encounter Care Teams Computer Aided Design Drafter Relationship Specialty Start Date End Date Ivone Brown PA [address] [place] [address] PCP - General Physician Cellophaner 08/04/24 documented as of this encounter
--- OUTSIDE RECORDS SUMMARY | 2025-02-18 15:26 | XMS_ITS | Encounter Summary ---
Author Organization [facility] [employer] [facility] and [facility] Address [address] [place] [address] Care Team Providers Care Proof Coins Inspector Name Role Phone Ivone Brown Primary Care Provider [phone] Reason for Visit * Reason Comments Medication Refill Encounter Details Date Type Department Care Team (Late st Contact Info) Description 10/22/2021 Refill [facility] [place] [address] [place] [address] Sanjuanita Sharp PA [address] [place] [phone] Medication Refill Social History Tobacco Use Types [...] documented as of this encounter Care Teams Proof Coins Inspector Relationship Specialty Start Date End Date Ivone Brown PA [address] [place] [address] PCP - General Physician Faculty Support Coordinator 08/04/24 documented as of this encounter
--- OUTSIDE RECORDS SUMMARY | 2025-02-18 15:26 | XMS_ITS | Encounter Summary ---
Author Organization [facility] [employer] [facility] and [facility] Address [address] [place] [address] Care Team Providers Care Hairspring Studder Name Role Phone Ivone Brown Primary Care Provider [phone] Encounter Details Date Type Department Care Team (Late st Contact Info) Description 12/07/2020 Scanned Document [facility] at [address] [place] [address] Miguel Angel, RN Social History Tobacco Use [...] documented as of this encounter Care Teams Hairspring Studder Relationship Specialty Start Date End Date Ivone Brown PA [address] [place] [phone] PCP - General Physician Bead Forming Machine Operator 08/04/24 documented as of this encounter
--- OUTSIDE RECORDS SUMMARY | 2025-02-18 15:26 | XMS_ITS | Encounter Summary ---
Author Organization [facility] [employer] [facility] and [facility] Address [address] [place] [address] Care Team Providers Care Labor Crew Supervisor Name Role Phone Ivone Brown Primary Care Provider [phone] Encounter Details Date Type Department Care Team (Late st Contact Info) Description 10/04/2020 Scanned Document [facility] at [address] [place], [place] [address] Zaheer Mcdaniel MD MPH [address] [place] [address] Social History Tobacco Use Types [...] documented as of this encounter Care Teams Labor Crew Supervisor Relationship Specialty Start Date End Date Ivone Brown PA [address] [place] [phone] PCP - General Physician Supervisor Component Assembler 08/04/24 documented as of this encounter
--- OUTSIDE RECORDS SUMMARY | 2025-02-18 15:26 | XMS_ITS | Encounter Summary ---
Author Organization [facility] Address [address] [place] [address] Phone Care Team Providers Care Bakery Worker Conveyor Line Name Role Phone Ivone Brown Primary Care Provider [phone] Reason for Visit * Reason Comments Medication Refill Encounter Details Date Type Department Care Team (Late st Contact Info) Description 12/18/2022 Refill [facility] [address] [address] Shannon Nunn MD [address] [place], [place] [phone] Medication Refill Social History Tobacco Use Types [...] as of this encounter Care Teams Bakery Worker Conveyor Line Relationship Specialty Start Date End Date Ivone Brown PA [address] [place] [address] PCP - General Physician Meat Products Demonstrator 08/04/24 documented as of this encounter
--- OUTSIDE RECORDS SUMMARY | 2025-02-18 15:26 | XMS_ITS | Encounter Summary ---
Author Organization [facility] and [facility] Address [address] [place] [address] Care Team Providers Care Appraiser Boats And Marine Name Role Phone Ivone Brown Primary Care Provider [phone] Reason for Visit * Reason Comments Medication Refill Encounter Details Date Type Department Care Team (Late st Contact Info) Description 11/22/2021 Refill [facility]A [facility] [address] [place] [address] Sanjuanita Sharp PA [address] [place] [phone] Medication Refill Social History Tobacco Use Types [...] documented as of this encounter Care Teams Appraiser Boats And Marine Relationship Specialty Start Date End Date Ivone Brown PA [address] [place] [address] PCP - General Physician Drop Hammer Pile Driver Operator 08/04/24 documented as of this encounter
--- OUTSIDE RECORDS SUMMARY | 2025-02-18 15:26 | XMS_ITS | Encounter Summary ---
Author Organization [facility] and [facility] Address [address] [place] [address] Care Team Providers Care Detective Youth Bureau Name Role Phone Ivone Brown Primary Care Provider [phone] Reason for Visit * Reason Comments Medication Refill Encounter Details Date Type Department Care Team (Late st Contact Info) Description 08/20/2021 Refill [facility] [address] [place] [address] Sanjuanita Sharp PA [address] [place] [phone] Medication Refill Social History Tobacco Use Types [...] documented as of this encounter Care Teams Detective Youth Bureau Relationship Specialty Start Date End Date Ivone Brown PA [address] [place] [address] PCP - General Physician Coke Still Cleaner 08/04/24 documented as of this encounter
--- OUTSIDE RECORDS SUMMARY | 2025-02-18 15:26 | XMS_ITS | Encounter Summary ---
Author Organization [facility] and [facility] Address [address] [place] [address] Care Team Providers Care Contracts Paralegal Name Role Phone Ivone Brown Primary Care Provider [phone] Reason for Visit * Reason Comments Medication Refill Encounter Details Date Type Department Care Team (Late st Contact Info) Description 12/02/2021 Refill [facility] at [facility]A [facility] [address] [place] [address] Sanjuanita Sharp PA 8 [place] [phone] Medication Refill Social History Tobacco Use Types [...] documented as of this encounter Care Teams Contracts Paralegal Relationship Specialty Start Date End Date Ivone Brown PA [address] [place] [address] PCP - General Physician Photographic Plate Maker 08/04/24 documented as of this encounter
--- OUTSIDE RECORDS SUMMARY | 2025-02-18 15:26 | XMS_ITS | Encounter Summary ---
Author Organization [facility] Address [address] [place] [address] Care Team Providers Care Chalk Cutter Name Role Phone Ivone Brown Primary Care Provider [phone] Reason for Visit * Reason Comments Medication Refill Encounter Details Date Type Department Care Team (Late st Contact Info) Description 01/06/2022 Refill [facility] [place] [address] [address] Perla Gomez PA [address] [place] [phone] Medication Refill Social History Tobacco Use [...] documented as of this encounter Care Teams Chalk Cutter Relationship Specialty Start Date End Date Ivone Brown PA [address] [place] [address] PCP - General Physician Sieve Repairer 08/04/24 documented as of this encounter
--- OUTSIDE RECORDS SUMMARY | 2025-02-18 15:26 | XMS_ITS | Encounter Summary ---
Author Organization [facility] Address [address] [place] [address] Phone Care Team Providers Care All Terrain Vehicle Technician Name Role Phone Ivone Brown Primary Care Provider [phone] Reason for Visit * Reason Comments Medication Refill Encounter Details Date Type Department Care Team (Late st Contact Info) Description 01/19/2022 Refill [facility] [address] [address] Shannon Nunn MD [address] [place], [place] [phone] Medication Refill Social History Tobacco Use Types [...] documented as of this encounter Care Teams All Terrain Vehicle Technician Relationship Specialty Start Date End Date Ivone Brown PA [address] [place] [address] PCP - General Physician Dispute Specialist 08/04/24 documented as of this encounter
--- OUTSIDE RECORDS SUMMARY | 2025-02-18 15:26 | XMS_ITS | Patient Health Record ---
Author Organization [facility], Address [address] [place] [address] Support Name Relationship Address Phone Joaquin Crenshaw Guarantor Unknown [phone] Reason For Referral No Information Problems No Known Problems Plan Of Treatment No Information Insurance Providers Payer Name Payer Address Payer Phone Subscriber Number Group Number Insured Name Patient Relationship to Insured Coverage Start Date Coverage End Date Medicaid of [place] [address] [place] [address] [id number] Joaquin Crenshaw Self - patient is the insured
--- OUTSIDE RECORDS SUMMARY | 2025-02-18 15:26 | XMS_ITS | Encounter Summary ---
Author Organization [facility] Address [address] [place] [address] Care Team Providers Care E Business Manager Name Role Phone Ivone Brown Primary Care Provider [phone] Reason for Visit * Reason Comments Medication Refill Encounter Details Date Type Department Care Team (Late st Contact Info) Description 01/19/2022 Refill [facility] [place] [address] [address] Perla Gomez PA [address] [place] [phone] Medication Refill Social History Tobacco Use [...] documented as of this encounter Care Teams E Business Manager Relationship Specialty Start Date End Date Ivone Brown PA [address] [place] [address] PCP - General Physician Radiator Core Tester 08/04/24 documented as of this encounter
--- OUTSIDE RECORDS SUMMARY | 2025-02-18 15:26 | XMS_ITS | Encounter Summary ---
Author Organization [facility] Address [address] [place] [address] Care Team Providers Care Change Person Name Role Phone Ivone Brown Primary Care Provider [phone] Reason for Visit * Reason Comments Medication Refill Encounter Details Date Type Department Care Team (Late st Contact Info) Description 12/25/2021 Refill [facility] [place] [address] [address] Perla Gomez PA [address] [place] [phone] Medication Refill Social History Tobacco Use [...] documented as of this encounter Care Teams Change Person Relationship Specialty Start Date End Date Ivoen Brown PA [address] [place] [address] PCP - General Physician Show Horse Driver 08/04/24 documented as of this encounter
--- OUTSIDE RECORDS SUMMARY | 2025-02-18 15:26 | XMS_ITS | Encounter Summary ---
Author Organization [facility] Address [address] [place] [address] Phone Care Team Providers Care Career Consultant Name Role Phone Ivone Brown Primary Care Provider [phone] Encounter Details Date Type Department Care Team (Late st Contact Info) Description 08/05/2024 Documentation [facility] [address] [place] [address] Edna [place] LMSW Social History Tobacco Use [...] documented as of this encounter Care Teams Career Consultant Relationship Specialty Start Date End Date Ivone Brown PA [address] [place] [address] PCP - General Physician Dial Printer 08/04/24 documented as of this encounter
[2025-02-18 18:19] LABS: MANUAL DIFF FLAG NO
[2025-02-18 18:38] LABS: Hematocrit 33.9 % (37.0-47.0); Hemoglobin 10.3 g/dl (12.0-16.0); Imm Gran Abs Auto 0.02 X10*3/uL (0.00-0.03); Imm Gran Pct Auto 0.3 % (0.0-0.4); Lymphocytes Absolute Auto 2.3 X10*3/uL (1.2-4.9); Mean Corpuscular HGB Conc 30.4 g/dl (31.0-35.0); Mean Corpuscular Hemoglobin 24.5 pg (27.0-33.0); Mean Corpuscular Volume 80.5 fL (80.0-98.0); NRBC Abs Auto 0.000 X10*3/uL (0.0-0.012); NRBC Pct Auto 0.0 /100WBC (0.0-0.2); Platelet Count 282 X10*3/uL (160-400); Red Blood Count 4.21 X10*6/uL (4.20-5.50); White Blood Count 6.8 X10*3/uL (4.8-10.8)
[2025-02-18 18:40] LABS: Appearance Urine Clear; Glucose Urine UA Negative (Negative); PH 6.0 (5.0-9.0); Specific Gravity - Urine 1.025 (1.005-1.025)
[2025-02-18 18:57] LABS: Alanine Aminotransferase 20 U/L (0-31); Albumin Level 3.6 g/dL (3.5-5.0); Alkaline Phosphatase 72 U/L (39-117); Anion Gap 12 (12-20); Aspartate Amino Transferase 34 U/L (5-31); Blood Urea Nitrogen 21 mg/dL (9-16); Calcium 8.8 mg/dL (8.4-10.2); Carbon Dioxide 27 mmol/L (22-29); Chloride 108 mmol/L (96-108); Cholesterol 134 mg/dL (<200); Estimated Glomerular Filt Rate > 60; HDL Cholesterol 50 mg/dL (>40); Potassium 3.6 mmol/L (3.3-5.1); Sodium 143 mmol/L (135-145); Total Protein 6.8 g/dL (6.5-8.0); Triglycerides 59 mg/dL (<150)
[2025-02-19 07:31] LABS: Hemoglobin A1C 96.5158 umol/L; Total Hemoglobin (HGBA1C) 2714.3442 umol/L
[2025-02-19 08:47] LABS: HBS Num1 0.48 mIU/mL (0-7.99); HBsAGNum1 0.42 S/CO (0.00-0.99); HIV Num 1 0.06 S/CO (0.00-0.99); Hepatitis B Surface Antigen Negative (Negative); ~HepC Num1 0.15 S/CO (0.00-0.79); ~Hepatitis B Surface Antibody NONREACTIVE (Nonreactive); ~Hepatitis C Antibody Nonreactive (Nonreactive)
== END 2025-02-18 12:24 | disposition home or self-care (01) ==
LOC: HO.HKASLDS 12:23
PROVIDERS: Visit Provider Student in an Organized Health Care Education/Training Program
DX: Z11.4 Encounter for screening for human immunodeficiency virus [HIV] (principal); Z11.59 Encounter for screening for other viral diseases; Z76.89 Persons encountering health services in other specified circumstances
CPT/HCPCS: 36415; 80053; 80061; 81003; 83036; 85025; 86706; 86803; 87340; 87389

== ENCOUNTER 2025-02-19 14:05 | Outpatient (AMB) | payer OTHER, SELFPAY ==
[2025-02-19 14:38] VITALS: BMI 38.7
--- NOTE | 2025-02-19 14:38 | A.OFFVIS_ITS ---
VS Expanded 02/19/25 14:38 02/24/25 20:22 Height 5 ft 5.2 in 5 ft 5 in Weight 234 lb 2.095 oz 234 lb BMI 38.7 38.9 Intake Visit Reasons: Obesity, class 2 Allergies No Known Allergies Allergy (Verified 02/24/25 13:39) Nutrition Presentation Details: Pt presents for MNT for obesity, class 2 pt reports having had gastric sleeve surgery weighing 364 lbs prior to surgery, reached 195 lbs post surgery and in the past 2 yrs is gradually gaining weight , now up to 234 lbs Pt reports not having set meals due to inconsistent work schedule and daily life activities Pt reports feeling rushed all the time and stressed. Pt wants to work on prevention of further wt gain Takes vit b12 suppl and Vit D3 supp food frequency fish: 3x/wk fruits 0-1/d ve-3 x/wk water : 16-18 oz/d dairy: 1-2 /dy etoh: denies physical activity: Active at work reports no meal routine acknowledges lacking protein intake and fluid intake denies GI symptoms (vomiting/diarrhea/constipation) BS Monitoring Most Recent Diabetes Results: Cholesterol, (<200) 134 mg/dL 02/18/25 HDL Cholesterol, (>40) 50 mg/dL 02/18/25 Triglycerides, (<150) 59 mg/dL 02/18/25 Creatinine, (0.5-1.4) 0.70 mg/dL 02/18/25 BUN, (9-16) 21 mg/dL H 02/18/25 Sodium, (135-145) 143 mmol/L 02/18/25 Potassium, (3.3-5.1) 3.6 mmol/L 02/18/25 Chloride, (96-108) 108 mmol/L 02/18/25 Carbon Dioxide, (22-29) 27 mmol/L 02/18/25 Calcium, (8.4-10.2) 8.8 mg/dL 02/18/25 AST, (5-31) 34 U/L H 02/18/25 ALT, (0-31) 20 U/L 02/18/25 Total Protein, (6.5-8.0) 6.8 g/dL 02/18/25 Albumin, (3.5-5.0) 3.6 g/dL 02/18/25 BPO-Vmuvzgc-Kv.Jeor Equation Height: 5 ft 5 in Weight: 234 lb Resting Metabolic Rate: 1704.90 Calculated Activity Level: Sedentary Calories Needed to Maintain Weight: 2045.88 Diagnosis Nutrition problem #1: overweight/obesity As related to (etiology) #1: diagnosis As evidenced by (sign/symptom) #1: high BMI (39 (03/05), wt gain post sleeve gastric ) PFSH Medical History (Updated 02/24/25 @ 20:[address], LDN) Vitamin D insufficiency PTSD (post-traumatic stress disorder) Epigastric pain Severe obesity LUIS FERNANDO (obstructive sleep apnea) Depression Panic disorder Morbid obesity Abdominal pain Surgical History H/O colonoscopy S/P laparoscopic surgery H/O endoscopy Hx laparoscopic cholecystectomy Bariatric surgery status S/P gastric sleeve procedure Family History Father High cholesterol High triglycerides High blood pressure Stroke Mother Uterus cancer High blood pressure Glaucoma (increased eye pressure) Lupus (systemic lupus erythematosus) Social History Housing: House Alcohol intake: current Alcohol intake frequency: does not drink Patient Tobacco Use Status: Never used Tobacco service: No Current occupational status: employed Cognitive needs: No Hearing needs: No Vision needs: No Assessment & Plan Assessment & Plan (1) Obesity (BMI 30-39.9): Code(s): E66.9 - Obesity, unspecified Category: Medical Plan: current wt: 106 kg (03/05 ) est kcal needs as per MSJ: 2000 est protein needs as per 1 g/kg BW: 100 est fluid needs as per 30 ml/kg BW: 3200 Recommended fiber > 12 g /day and gradually increase up to 25-28 g /day or as tolerated Sodium recommendation: <2300 mg/d Nutrition topics discussed : Reviewed (R), Pt verbalized understanding (V) , not applicable (N/A) R,V : Healthy Plate Method Concept: R, : Carbohydrates: food sources of carbohydrates, relationship of carbohydrates to blood glucose, fatty liver GI health. Recommended total amount of carbohydrates per meals and snack. Differences between simple carbohydrates and complex carbohydrates R, : Lean protein foods including vegan , vegetarian sources of protein. Benefits of protein (including but not limited to healing, nutritional value , benefits in weight lo ss, glucose control RECOMMEND 100 g/day R, : Fats : Source of fats, benefits of fats. Difference between saturated and unsaturated fats. Saturated fats and its contribution to inflammation R, V, N/A: Fiber: food sources and role of fiber in the diet (including but not limited to its role as a prebiotic, benefits in constipation, role in IBS , role in glucose control and cholesterol level) R, V, N/A: Hydration: role of hydration and prevention of dehydration or over hydration. Foods and water content. R, V, N/A: Vitamins and Minerals in foods and supplements R, V, N/A: Interpreting food labels, including serving size, macronutrients, vitamins, minerals, allergens, ingredient list , % daily value Patient Instructions: Carry water (herb/fruit infused water) , working on increasing fluid intake 6-8 oz of fluids 30-45 min before and after meals Work on consuming protein foods 20-30 g protein with complex carb 4 times day - see meal ideas to try and meal replacements practice mindful eating Coding Level of Care Code Nutr Indiv Intake (52246) Diagnoses Obesity (BMI 30-39.9) E66.9 Time Spent (min) 30
--- OUTSIDE RECORDS SUMMARY | 2025-02-19 17:54 | XMS_ITS | Encounter Summary ---
Author Organization [facility] Address [address] [place] [address] Care Team Providers Care Mud Mixer Helper Name Role Phone Ivone Brown Primary Care Provider [phone] Encounter Details Date Type Department Care Team (Late st Contact Info) Description 08/23/2020 Scanned Document [facility] PM Rheumatology [address] [place], [place] [phone] Rigoberto Bautista MD [address] [place], [place] [address] [place] [address] Social History Tobacco Use Types [...] documented as of this encounter Care Teams Mud Mixer Helper Relationship Specialty Start Date End Date Ivone Brown PA [address] [place] [phone] PCP - General Physician Car Manager 08/04/24 documented as of this encounter
--- OUTSIDE RECORDS SUMMARY | 2025-02-19 17:54 | XMS_ITS | Encounter Summary ---
Author Organization [facility] Address [address] [place] [address] Phone Care Team Providers Care Nursing Program Director Name Role Phone Ivone Brown Primary Care Provider [phone] Reason for Visit * Reason Comments Medication Refill Encounter Details Date Type Department Care Team (Late st Contact Info) Description 12/18/2022 Refill [facility] [address] [address] Shannon Nunn MD [address] [place], [place] [phone] Medication Refill Social History Tobacco Use Types [...] documented as of this encounter Care Teams Nursing Program Director Relationship Specialty Start Date End Date Ivone Brown PA [address] [place] [address] PCP - General Physician Safe And Vault Service Mechanic 08/04/24 documented as of this encounter
--- OUTSIDE RECORDS SUMMARY | 2025-02-19 17:54 | XMS_ITS | Clinical Summary ---
Author Organization [address] Address [address] [place] [phone] Phone Care Team Providers Care Pediatric Hospitalist Name Role Phone Ivone Brown Primary Care Provider [phone] Allergies Active Allergy Reactions Criticality Noted Date Comments Asa-Calcium Gyos-Tak-Zooeuwfc Shortness Of Breath High 01/14/2019 Aspirin 01/17/2019 [...] your living situation today? I have a [facility] place to live 08/04/2024 Housing Stability [...] 136 - 144 mmol/L 03/27/2024 10:00 AM [facility] Potassium 3.9 3.3 - 5.3 mmol/L 03/27/2024 10:00 AM T [facility] Chloride 106 98 - 107 mmol/L 03/27/2024 10:00 AM T [facility] CO2 28 20 - 30 mmol/L 03/27/2024 10:00 AM [facility] Anion Gap 6(L) 7 - 17 03/27/2024 10:00 AM [facility] Glucose 88 70 - 100 mg/dL 03/27/2024 10:00 AM [facility] BUN 15 6 - 20 mg/dL 03/27/2024 10:00 AM [facility] Creatinine 0.67 0.40 - 1.30 mg/dL 03/27/2024 10:00 AM [facility] Calcium 8.8 8.8 - 10.2 mg/dL 03/27/2024 10:00 AM [facility] BUN/Creatinine Ratio 22.4 8.0 - 23.0 03/27/2024 10:00 AM [facility] Total Protein 6.6 5.9 - 8.3 g/dL 024 10:00 AM [facility] Comment:As of 2023, th e reference interval for Total Protein has been changed from (6.6 to 8.7 g/dL) to (5.9 to 8.3 g/dL). Albumin 3.5(L) 3.6 - 5.1 g/dL 03/27/2024 10:00 AM [facility] Comment:As of 2023, th e reference interval for Albumin has been changed from (3.6 to 4.9 g/dL) to (3.6 to 5.1 g/dL). Total Bilirubin 0.4 <=1.2 mg/dL 03/27/20 24 10:00 AM [facility] Alkaline Phosphatase 67 9 - 122 U/L 03/27/2024 10:00 AM [facility] Alanine Aminotransferase (ALT) 16 10 - 35 U/L 03/27/2024 10:00 AM [facility] Comment:Calcium dobesilate c an cause artificially low ALT results at therapeutic concentrations Aspartate Aminotransferase (AST) 20 10 - 35 U/L 03/27/2024 10:00 AM [facility] Globulin 3.1 2.0 - 3.9 g/dL 03/27/2024 10:00 AM [facility] Comment:As of 2023, th e reference interval for Globulin has been changed from (2.3 to 3.5 g/dL) to (2.0 to 3.9 g/dL). A/G Ratio 1.1 1.0 - 2.2 03/27/2024 10:00 AM [facility] AST/ALT Ratio 1.3 Reference Range Not Established 03/27/2024 10:00 AM [facility] eGFR (Creatinine) >60 >=60 mL/min/1.73m2 03/27/2024 10:00 AM EDT [facility] Comment: [facility] utilizes CKD-EPI Creatinine 2020 to report eGFR. Values < 60 mL/min/1.73 m2 may indicate CKD if present for more than three months AND creatinine is at steady state. The eGFR provides a rough estimate of kidney function. For further guidance, please refer to the CKD: Adult Single Needle Tufting Machine Operator Signature pathway. Blood Venipuncture / Unknown 03/27/2024 9:23 AM EDT 03/27/2024 9:33 AM EDT us Breana Estrada MD LAB BLOOD ORDERABLES Fin al Result [address] [phone] * Colonoscopy (02/22/2021 7:24 AM EDT) Colonoscopy Endoscopy Patient Name: Joaquin De León Procedure Date: 02/22/2021 7:24 AM Date of : 1980 Age: 40 Gender: Female Admit Type: Outpatient [facility] #: [id number] Note Status: Finalized Attending MD: Radha Mckeon [...] oxygen saturations were monitored continuously. The [id number] was introduced through the anus and advanced to the cecum, identified by appendiceal orifice and ileocecal valve. The colonoscopy was performed without difficulty. The patient tolerated the procedure well. The quality of the bowel preparation was evaluated using the BBPS ([place] Bowel Preparation Scale) with scores of: Right [...] pathology results. Procedure Code(s): --- Professional --- 07014, Colonoscopy, flexible; with removal of tumor(s), polyp(s), or other lesion(s) by snare technique Diagnosis Code(s): --- Professional --- Z80.0, Family history of malignant neoplasm of digestive organs K63.5, Polyp of colon K64.8, Other hemorrhoids K57.30, Diverticulosis of large intestine without perforation or abscess without bleeding CPT copyright 2020 [employer]. All rights reserved. The codes documented in this report are preliminary and upon architecture intern review may be revised to meet current compliance requirements. Attending Participation: I was present and participated during the entire procedure, including non-carrasquillo portions. ___ Radha Mckeon MD 02/22/2021 1:44:31 PM This report has been signed electronically. Number of Addenda: 0 Note Initiated On: 02/22/2021 7:24 AM Estimated Blood Loss: Estimated blood loss was minimal. Scope In: Scope Out: [facility] 02/22/2021 7:24 AM EDT us Shannon Nunn MD GI PROCEDURE ORDERABLES Final Result [facility] * Cholesterol, total (01/24/2021 10:51 AM EDT) Cholesterol, Total 147 <200 mg/dL [facility] Blood 01/24/2021 10:5 1 AM EDT 01/24/2021 10:52 AM EDT Narrative [facility] - 01/29/2021 11:40 AM EDT FASTING:YES FASTING: YES Resulting Agency Comment Performing Lab: Site ID: [id number] Name: [facility] Address: [address] [place] [address], [place] [address] Director: Bianca Senior M.D. us Zaheer Mcdaniel MD MPH LAB BLOOD ORDERABLES Final Result Performing Organization Address City/[facility] Co de Phone Number [facility] [address] [place] [address] from Last 3 Months or Most Recently Relevant to Health Maintenance Insurance MED[place] Advance Directives * Full ACLS (Latest Code Status on File) Date Activated Date Inactivated Comments 01/17/2022 6:12 PM 01/20/2022 2:42 PM Care Teams Pediatric Hospitalist Relationship Specialty Start Date End Date Ivone Brown PA [address] [place] [address] PCP - General Physician Service Administrator 08/04/24
--- OUTSIDE RECORDS SUMMARY | 2025-02-19 17:54 | XMS_ITS | Encounter Summary ---
Author Organization [facility] and [facility] Address [address] [place] [phone] Care Team Providers Care Elderly Sitter Name Role Phone Ivone Brown Primary Care Provider [phone] Reason for Visit * Reason Comments Medication Refill Encounter Details Date Type Department Care Team (Late st Contact Info) Description 12/02/2021 Refill [facility]Note 2[facility] [address] [place] [address] Sanjuanita Sharp PA [address] [place] [phone] Medication Refill Social History Tobacco Use Types [...] documented as of this encounter Care Teams Elderly Sitter Relationship Specialty Start Date End Date Ivone Brown PA [address] [place] [address] PCP - General Physician Mortgage Processor 08/04/24 documented as of this encounter
--- OUTSIDE RECORDS SUMMARY | 2025-02-19 17:54 | XMS_ITS | Encounter Summary ---
Author Organization [facility] and [facility] Address [address] [place] [address] Care Team Providers Care Transverse Abdominal Muscle Nurse Name Role Phone Ivone Brown Primary Care Provider [phone] Reason for Visit * Reason Onset Date Comments Medication Refill 07/10/2023 Encounter Details Date Type Department Care Team (Late st Contact Info) Description 07/10/2023 Refill [facility] at [address] [place], [place] [address] Zaheer Mcdaniel MD MPH [address] [place] [address] Medication Refill Social History Tobacco [...] documented as of this encounter Care Teams Transverse Abdominal Muscle Nurse Relationship Specialty Start Date End Date Ivone Brown PA [address] [place] [address] PCP - General Physician Business Administrator 08/04/24 documented as of this encounter
--- OUTSIDE RECORDS SUMMARY | 2025-02-19 17:54 | XMS_ITS | Encounter Summary ---
Author Organization [facility] Address [address] [place] [address] Phone Care Team Providers Care Real Estate Sales Manager Name Role Phone Ivone Brown Primary Care Provider Reason for Visit * Reason Comments Medication Refill Encounter Details Date Type Department Care Team (Late st Contact Info) Description 02/13/2023 Refill [facility] [address] [address] Shannon Nunn MD [address] [place], [place] [phone] Medication Refill Social History Tobacco Use Types [...] documented as of this encounter Care Teams Real Estate Sales Manager Relationship Specialty Start Date End Date Ivone Brown PA [address] [place] [address] PCP - General Physician Slip Maker 08/04/24 documented as of this encounter
--- OUTSIDE RECORDS SUMMARY | 2025-02-19 17:54 | XMS_ITS | Encounter Summary ---
Author Organization [facility] Address [address] [place] [address] Phone Care Team Providers Care Glue Drier Operator Name Role Phone Ivone Brown Primary Care Provider [phone] Reason for Visit * Reason Comments Medication Refill Encounter Details Date Type Department Care Team (Late st Contact Info) Description 03/03/2022 Refill [facility] [address] [address] Shannon Nunn MD [address] [place], [place] [phone] Medication Refill Social History Tobacco Use Types [...] documented as of this encounter Care Teams Glue Drier Operator Relationship Specialty Start Date End Date Ivone Brown PA [address] [place] [phone] PCP - General Physician Coremaker Floor 08/04/24 documented as of this encounter
--- OUTSIDE RECORDS SUMMARY | 2025-02-19 17:54 | XMS_ITS | Encounter Summary ---
Author Organization [facility] and [facility] Address [address] [place] [address] Care Team Providers Care Clothespin Machine Operator Name Role Phone Ivone Brown Primary Care Provider [phone] Reason for Visit * Reason Comments Medication Refill Encounter Details Date Type Department Care Team (Late st Contact Info) Description 10/22/2021 Refill [facility][Note 3] [address] [place] [address] Sanjuanita Sharp PA [address] [place] [phone] Medication Refill Social History Tobacco Use Types [...] documented as of this encounter Care Teams Clothespin Machine Operator Relationship Specialty Start Date End Date Ivone Brown PA [address] [place] [address] PCP - General Physician International Travel Consultant 08/04/24 documented as of this encounter
--- OUTSIDE RECORDS SUMMARY | 2025-02-19 17:54 | XMS_ITS | Encounter Summary ---
Author Organization [facility] [employer] [facility] and [facility] Address [address] [place] [address] Care Team Providers Care Automatic Folder Seamer Name Role Phone Ivone Brown Primary Care Provider [phone] Encounter Details Date Type Department Care Team (Late st Contact Info) Description 08/23/2020 Scanned Document [facility] [address] [facility] [address] [place] [address] Perla Gomez PA 8 [place] [address] Social History Tobacco Use Types [...] documented as of this encounter Care Teams Automatic Folder Seamer Relationship Specialty Start Date End Date Ivone Brown PA [address] [place] [phone] PCP - General Physician Shearing Machine Tender 08/04/24 documented as of this encounter
--- OUTSIDE RECORDS SUMMARY | 2025-02-19 17:54 | XMS_ITS | Encounter Summary ---
Author Organization [facility] Address [address] [place] [address] Phone Care Team Providers Care Neonatal Nurse Name Role Phone Ivone Brown Primary Care Provider [phone] Reason for Visit * Reason Comments Medication Refill Encounter Details Date Type Department Care Team (Late st Contact Info) Description 01/19/2022 Refill [facility] [address] [address] Shannon Nunn MD [address] [place], [place] [phone] Medication Refill Social History Tobacco Use Types [...] documented as of this encounter Care Teams Neonatal Nurse Relationship Specialty Start Date End Date Ivone Brown PA [address] [place] [address] PCP - General Physician Dental Office Receptionist 08/04/24 documented as of this encounter
--- OUTSIDE RECORDS SUMMARY | 2025-02-19 17:54 | XMS_ITS | Encounter Summary ---
Author Organization [facility] [employer] [facility] and [facility] Address [address] [place] [address] Care Team Providers Care Meat Team Member Name Role Phone Ivone Brown Primary Care Provider [phone] Encounter Details Date Type Department Care Team (Late st Contact Info) Description 12/07/2020 Scanned Document [facility] at [address] [place] [address] Miguel Angel, RN Social History Tobacco Use [...] documented as of this encounter Care Teams Meat Team Member Relationship Specialty Start Date End Date Ivone Brown PA [address] [place] [address] PCP - General Physician Chief Technical Officer 08/04/24 documented as of this encounter
--- OUTSIDE RECORDS SUMMARY | 2025-02-19 17:54 | XMS_ITS | Encounter Summary ---
Author Organization [facility] Address [address] [place] [address] Phone Care Team Providers Care Qual Field Manager Name Role Phone Ivone Brown Primary Care Provider Encounter Details Date Type Department Care Team (Late st Contact Info) Description 08/05/2024 Documentation [facility] [address] [place] [address] Edna Downs LMSW Social History Tobacco Use [...] documented as of this encounter Care Teams Qual Field Manager Relationship Specialty Start Date End Date Ivone Brown PA [address] [place] [address] PCP - General Physician Web Development Instructor 08/04/24 documented as of this encounter
--- OUTSIDE RECORDS SUMMARY | 2025-02-19 17:54 | XMS_ITS | Encounter Summary ---
Author Organization [facility] and [facility] Address [address] [place] [address] Care Team Providers Care Vice Admiral Name Role Phone Ivone Brown Primary Care Provider [phone] Reason for Visit * Reason Comments Medication Refill Encounter Details Date Type Department Care Team (Late st Contact Info) Description 09/26/2021 Refill [facility] [address] [place] [address] Sanjuanita Sharp PA [address] [place] [phone] Medication Refill Social History Tobacco Use Types [...] documented as of this encounter Care Teams Vice Admiral Relationship Specialty Start Date End Date Ivone Brown PA [address] [place] [address] PCP - General Physician Machine Tracer 08/04/24 documented as of this encounter
--- OUTSIDE RECORDS SUMMARY | 2025-02-19 17:54 | XMS_ITS | Encounter Summary ---
Author Organization [facility] Address [address] [place] [address] Care Team Providers Care Electronic Equipment Installer Name Role Phone Ivone Brown Primary Care Provider [phone] Reason for Visit * Reason Comments Medication Refill Encounter Details Date Type Department Care Team (Late st Contact Info) Description 01/19/2022 Refill [facility] [place] [address] [address] Perla Gomez PA [address] [place] [phone] Medication Refill Social History Tobacco Use [...] documented as of this encounter Care Teams Electronic Equipment Installer Relationship Specialty Start Date End Date Ivone Brown PA [address] [place] [address] PCP - General Physician Cath Laboratory Technician 08/04/24 documented as of this encounter
--- OUTSIDE RECORDS SUMMARY | 2025-02-19 17:54 | XMS_ITS | Encounter Summary ---
Author Organization [facility] [employer] [facility] and [facility] Address [address] [place] [address] Care Team Providers Care Diagnostic Medical Sonographer Name Role Phone Ivone Brown Primary Care Provider [phone] Encounter Details Date Type Department Care Team (Late st Contact Info) Description 10/04/2020 Scanned Document [facility] at [address] [place], [place] [address] Zaheer Mcdaniel MD MPH [address] [place] [address] Social History Tobacco Use Types [...] documented as of this encounter Care Teams Diagnostic Medical Sonographer Relationship Specialty Start Date End Date Ivone Brown PA [address] [place] [phone] PCP - General Physician Trophy Assembler 08/04/24 documented as of this encounter
--- OUTSIDE RECORDS SUMMARY | 2025-02-19 17:54 | XMS_ITS | Encounter Summary ---
Author Organization [facility] and [facility] Address [address] [place] [address] Care Team Providers Care Kicking Machine Operator Name Role Phone Ivone Brown Primary Care Provider [phone] Reason for Visit * Reason Comments Medication Refill Encounter Details Date Type Department Care Team (Late st Contact Info) Description 11/22/2021 Refill [facility]A [facility] 4A [place] [address] Sanjuanita Sharp PA [address] [place] [phone] Medication Refill Social History Tobacco Use Types [...] documented as of this encounter Care Teams Kicking Machine Operator Relationship Specialty Start Date End Date Ivone Brown PA [address] [place] [address] PCP - General Physician Orchestra Conductor 08/04/24 documented as of this encounter
--- OUTSIDE RECORDS SUMMARY | 2025-02-19 17:54 | XMS_ITS | Encounter Summary ---
Author Organization [facility] and Home Health Address [address] [place] [address] Care Team Providers Care Public Relations Name Role Phone Ivone Brown Primary Care Provider [phone] Reason for Visit * Reason Comments Medication Refill Encounter Details Date Type Department Care Team (Late st Contact Info) Description 01/06/2022 Refill [facility] [place] [address] [address] Perla Gomez PA [address] [place] [phone] Medication Refill Social History Tobacco Use [...] documented as of this encounter Care Teams Public Relations Relationship Specialty Start Date End Date Ivone Brown PA [address] [place] [address] PCP - General Physician Aquatics Director 08/04/24 documented as of this encounter
--- OUTSIDE RECORDS SUMMARY | 2025-02-19 17:54 | XMS_ITS | Encounter Summary ---
Author Organization [facility] Address [address] [place] [address] Care Team Providers Care Purchasing Clerk Name Role Phone Ivone Brown Primary Care Provider [phone] Reason for Visit * Reason Comments Medication Refill Encounter Details Date Type Department Care Team (Late st Contact Info) Description 03/03/2022 Refill [facility] [place] [address] [address] Perla Gomez PA [address] [place] [phone] Medication Refill Social History Tobacco Use [...] documented as of this encounter Care Teams Purchasing Clerk Relationship Specialty Start Date End Date Ivone Brown PA [address] [place] [address] PCP - General Physician Auto Hauler 08/04/24 documented as of this encounter
--- OUTSIDE RECORDS SUMMARY | 2025-02-19 17:54 | XMS_ITS | Patient Health Record ---
Author Organization [facility], Address [address] [place] [address] Support Name Relationship Address Phone Joaquin Crenshaw Guarantor Unknown Reason For Referral No Information Problems No Known Problems Plan Of Treatment No Information Insurance Providers Payer Name Payer Address Payer Phone Subscriber Number Group Number Insured Name Patient Relationship to Insured Coverage Start Date Coverage End Date [employer] of [place] [address] [place] [address] [id number] Joaquin Crenshaw Self - patient is the insured
--- OUTSIDE RECORDS SUMMARY | 2025-02-19 17:54 | XMS_ITS | Encounter Summary ---
Author Organization [facility] Address [address] [place] [address] Care Team Providers Care Scientific Affairs Manager Name Role Phone Ivone Brown Primary Care Provider [phone] Reason for Visit * Reason Comments Medication Refill Encounter Details Date Type Department Care Team (Late st Contact Info) Description 12/25/2021 Refill [facility] [place] [address] [address] Perla Gomez PA [address] [place] [phone] Medication Refill Social History Tobacco Use [...] documented as of this encounter Care Teams Scientific Affairs Manager Relationship Specialty Start Date End Date Ivone Brown PA [address] [place] [address] PCP - General Physician Pr Manager 08/04/24 documented as of this encounter
--- OUTSIDE RECORDS SUMMARY | 2025-02-19 17:54 | XMS_ITS | Encounter Summary ---
Author Organization [facility] [employer] [facility] and [facility] Address [address] [place] [address] Care Team Providers Care Business Management Specialist Name Role Phone Ivone Brown Primary Care Provider [phone] Encounter Details Date Type Department Care Team (Latest Contact Info) Description 01/05/2022 Transcribed Orders [place] [address] Zaheer Mcdaniel MD MPH [address] [facility] [address] [place] [address] Severe obesity (HC Code) (HC [...] 8:42 AM EDT) Heart Rate 66 bpm [facility] ECG QRS Duration 90 ms [facility] ECG Q-T Interval 412 ms [facility] ECG QTC Calculation(Be zet) 431 ms [facility] ECG P [place] 41 deg [facility] ECG R [place] 70 deg [facility] ECG T [place] 31 deg [facility] ECG P-R Interval 150 msec [facility] ECG SEVERITY Normal ECG severity [facility] ECG Comment::Normal sinus rhythm :Normal ECG:Electronically Signed On 01-05-2022 18:52:20 EDT by AR MTEZ MD 01/05/2022 8:42 AM EDT us Zaheer Mcdaneil MD MPH ECG ORDERABLES Final Resul t [facility] ECG documented in this encounter Visit Diagnoses [...] documented as of this encounter Care Teams Business Management Specialist Relationship Specialty Start Date End Date Ivone Brown PA [address] [place] [phone] PCP - General Physician Reprographics Technician 08/04/24 documented as of this encounter
--- OUTSIDE RECORDS SUMMARY | 2025-02-19 17:54 | XMS_ITS | Encounter Summary ---
Author Organization [facility] Address [address] [place] [address] Phone Care Team Providers Care Picture Booker Name Role Phone Ivone Brown Primary Care Provider Reason for Visit * Reason Comments Medication Refill Encounter Details Date Type Department Care Team (Late st Contact Info) Description 03/06/2023 [place] [address] Shannon Nunn MD [address] [place], [place] [phone] Medication Refill Social History Tobacco Use Types [...] documented as of this encounter Care Teams Picture Booker Relationship Specialty Start Date End Date Ivone Brown PA [address] [place] [address] PCP - General Physician Data Processing Clerk 08/04/24 documented as of this encounter
--- OUTSIDE RECORDS SUMMARY | 2025-02-19 17:54 | XMS_ITS | Encounter Summary ---
Author Organization [facility] and [facility] Address [address] [place] [address] Care Team Providers Care Pharmacist Apprentice Name Role Phone Ivone Brown Primary Care Provider [phone] Reason for Visit * Reason Comments Medication Refill Encounter Details Date Type Department Care Team (Late st Contact Info) Description 08/20/2021 Refill [facility] [address] [place] [address] Sanjuanita Sharp PA [address] [place] [phone] Medication Refill Social History Tobacco Use Types [...] documented as of this encounter Care Teams Pharmacist Apprentice Relationship Specialty Start Date End Date Ivone Brown PA [address] [place] [address] PCP - General Physician Plate Driller 08/04/24 documented as of this encounter
[2025-02-24 20:22] VITALS: BMI 38.9
== END 2025-02-19 15:17 | disposition home or self-care (01) ==
LOC: HO.ENCR 14:06
PROVIDERS: PCP Student in an Organized Health Care Education/Training Program; Visit Provider Dietitian, Registered
DX: E66.9 Obesity, unspecified (principal)

== ENCOUNTER → 2025-02-19 14:05 | Outpatient (BNVA) | payer OTHER, SELFPAY | PROVIDERS: PCP Student in an Organized Health Care Education/Training Program; Visit Provider Dietitian, Registered | DX: E66.812 Obesity, class 2 (principal); Z68.38 Body mass index [BMI] 38.0-38.9, adult; Z90.49 Acquired absence of other specified parts of digestive tract; Z98.84 Bariatric surgery status; Z72.3 Lack of physical exercise; Z73.9 Problem related to life management difficulty, unspecified; Z71.3 Dietary counseling and surveillance | CPT/HCPCS: 97802 ==

== ENCOUNTER 2025-02-24 13:36 | Outpatient (AMB) | payer OTHER, SELFPAY ==
--- NOTE | 2025-02-24 13:39 | MHC.PC.OV ---
Vital Signs 02/24/25 13:41 Height 5 ft 5.08 in Weight 234 lb 4 oz BMI 38.9 BP 142/80 H Blood Pressure Location Rt brachial Position Sitting Respiration 16 Pulse 67 Pulse Source Pulse Oximeter Temp 98.1 F Temp Source Oral Pulse Oximetry (%) 99 Oxygen Delivery Method Room Air Intake Visit Reasons: 1 week follow up Intake Note: pt here for hernia in stomach is really painful pt had done surgery got gastric sleeve and they might think this is where the hernia came from. Plant Production Worker Required: No Accompanied by: Self / Same As Patient Allergies No Known Allergies Allergy (Verified 02/24/25 13:39) Tobacco use date assessed: 02/17/25 Dental Screening Dental Screen Date: 02/17/25 Did you have a dental visit in the last 12 months?: No Did you have a dental problem in the last 6 months where you did not have access to dental care?: No Was dental information given to patient?: No HPI HPI Comments History of Present Illness Details History of Present Illness The patient is a 44-year-old female presenting with a follow-up for lab results Patient has an appointment with General surgery and is pending an appointment with the weight management clinic She has no acute complaints about her abdominal pain at this time Iron deficiency anemia: - History of iron deficiency anemia, status post bariatric surgery. - Prior treatment included iron supplementation and iron injections. Eosinophilia: - Asymptomatic Elevated liver transaminase levels: - asymptomatic Vitamin D deficiency: - Identified with prior low levels. Health Maintenance - Hepatitis-B antibody negative; recommend hepatitis-B series vaccine. Review of Systems - General: Denies fatigue, weakness. - Gastrointestinal: Denies nausea, vomiting, diarrhea. - Musculoskeletal: Denies joint pain or swelling. - Neurological: Denies headaches, dizziness. - Respiratory: Denies shortness of breath, cough. 10-point ROS reviewed and negative except as noted in HPI Past Medical History - Iron deficiency anemia - Vitamin D deficiency Past Surgical History - Bariatric surgery (date unspecified) Social History - Reports elevated blood pressure occasionally. - Does not consume salty foods. - Previous use of home blood pressure monitoring not indicated. Physical Exam - General- Well-appearing, in no acute distress. - Vital signs- Within normal limits. - HEENT- Normocephalic, atraumatic. PERRLA, EOMI. Conjunctiva clear, sclera anicteric. Oropharynx clear, mucous membranes moist. TMs intact bilaterally. - Neck- Supple, no lymphadenopathy, no thyromegaly, no JVD or carotid bruits. - Cardiovascular- RRR, normal S1/S2, no murmurs, rubs, or gallops. Peripheral pulses 2+ and symmetric. No edema. - Respiratory- Lungs clear to auscultation bilaterally, no wheezes, rales, or rhonchi. Normal effort. - Abdomen- Soft, non-tender, non-distended. Normoactive bowel sounds. No hepatosplenomegaly, masses. - MSK- Full range of motion, no joint swelling or deformity. Normal gait. - Skin- Warm, dry, intact. No rashes, lesions, or pallor. - Neuro- Alert and oriented x3. Cranial nerves II-XII intact. Strength 5/5 throughout. Sensation intact. Reflexes 2+ symmetric. Normal coordination and gait. - Psych- Appropriate mood and affect. Normal judgment and insight. Discussion Notes I discussed with the patient the management of her iron deficiency anemia, emphasizing the importance of iron supplementation with vitamin C to enhance absorption. We reviewed the potential side effects of oral iron supplements, such as gastrointestinal disturbances. The patient was advised on the necessity of continued monitoring and follow-up for her eosinophilia and elevated liver enzymes, with repeat testing in three months. The importance of addressing the patient's vitamin D deficiency through supplementation and lifestyle modifications was highlighted. I advised adherence to the hepatitis-B vaccination series as a component of her health maintenance. The patient expressed understanding and agreement with the proposed management plan. Plan 1. Iron deficiency anemia, unspecified D50.9 - Conduct iron studies and initiate iron supplementation with vitamin C to aid absorption. 2. Eosinophilia, unspecified D72.10 - Continue monitoring with repeat labs in three months. 3. Elevation of levels of liver transaminase levels R74.01 - Repeat liver function tests in three months. Monitor lipid panel. 4. Person consulting for explanation of examination or test findings Z71.2 5. vitamin-D deficiency obtain vitamin-D levels 6. Vitamin D Deficiency - Obtain vitamin D levels and consider supplementation as needed. Patient Instructions - Start taking iron 325 mg daily with vitamin C. - Follow up with lab tests, including iron studies, in three months. - Be sure to get the hepatitis-B vaccine series. - Monitor blood pressure at home if possible, and reduce salt intake. - Repeat liver tests and check vitamin D levels as scheduled. - Report any new symptoms or concerns promptly. [facility] Medical History PTSD (post-traumatic stress disorder) Epigastric pain Severe obesity LUIS FERNANDO (obstructive sleep apnea) Depression Panic disorder Morbid obesity Abdominal pain Surgical History H/O colonoscopy S/P laparoscopic surgery H/O endoscopy Hx laparoscopic cholecystectomy Bariatric surgery status S/P gastric sleeve procedure Family History Father High cholesterol High triglycerides High blood pressure Stroke Mother Uterus cancer High blood pressure Glaucoma (increased eye pressure) Lupus (systemic lupus erythematosus) Social History Housing: House Alcohol intake: current Alcohol intake frequency: does not drink Patient Tobacco Use Status: Never used Tobacco service: No Current occupational status: employed Cognitive needs: No Hearing needs: No Vision needs: No Questionnaire PHQ-9 Over the last 2 weeks, how often have you been bothered by any of the following problems? 1. Little interest or pleasure in doing things: not at all 2. Feeling down, depressed, or hopeless: several days 3. Trouble falling or staying asleep, or sleeping too much: several days 4. Feeling tired or having little energy: several days 5. Poor appetite or overeating: several days 6. Feeling bad about yourself - or that you are a failure or have let yourself or your family down: several days 7. Trouble concentrating on things, such as reading the newspaper or watching television: not at all 8. Moving or speaking so slowly that other people could have noticed. Or the opposite - being so fidgety or restless that you have been moving around a lot more than usual: not at all 9. Thoughts that you would be better off or of hurting yourself in some way: not at all Total score: 5 Source: Developed by Drs. Magdi Simon, Kinga Loza, Neymar Pierson and colleagues, with an educational ritu from [employer]. Thrive Questionnaire Date Thrive assessed: 02/17/25 I am a: Patient What is your living situation today?: I have a place to live, but I am worried about losing it in the future Within the past 12 months, did the food you bought not last and you didn't have the money to get more?: Sometimes True Within the past 12 months, did you worry whether your food would run out before you got money to buy more?: Sometimes True Do you have trouble paying for medicines?: Yes Do you have trouble getting transportation to medical appointments?: Yes Do you have trouble paying your heating and electricity bill?: Yes Do you have trouble taking care of your child, family member or friend?: No Do you have trouble with day-to-day activities such as bathing, preparing meals, shopping, managing finances, etc.?: No Are you currently unemployed and looking for a job?: I choose not to answer this question Are you interested in more education?: Yes Please select the resources that you would like help with: Utilities and Job search/training Currently or been in a relationship where the following occur: No concerns reported THRIVE Score: 5 AUDIT C Alcohol Use Questionnaire (AUDIT-C) 1. How often do you have a drink containing alcohol?: Never 3. How often do you have six or more drinks on one occasion?: Never Total Score: 0 QASIM-7 AMB Questionnaire QASIM-7 Date QASIM - 7 assessed: 02/17/25 Feeling nervous, anxious, or on edge: 1 = Several days Not being able to stop or control worryin = Several days Worrying too much about different things: 1 = Several days Trouble relaxin = Several days Being so restless that it is hard to sit still: 1 = Several days Becoming easily annoyed or irritable: 1 = Several days Feeling afraid as if something awful might happen: 0 = Not at all Total QASIM-7 score (0-4 normal; 5-9 mild; 10-14 moderate; 15-21 severe): 6 Source: Developed by Drs. Magdi Simon, Kinga Loza, Neymar Pierson and colleagues, with an educational ritu from [employer]. Physical exam (Primary Care) Tobacco/Smoking Status: Tobacco use Status Tobacco use date assessed 02/17/25 02/17/25 16:06 Patient Tobacco Use Status Never used Tobacco 02/17/25 16:06 Thrive Assessment: Date of Thrive Assessment Date Thrive assessed 02/17/25 02/17/25 16:06 Currently or been in a relationship where the following occur: No concerns reported Coding Level of Care Code New Pt Level 3 (75258) Diagnoses Encounter to discuss test results Z71.2 Microcytic anemia D50.9 History of bariatric surgery Z98.84 Eosinophilia, unspecified type D72.10 Eosinophilia type: unspecified eosinophilia Elevation of levels of liver transaminase levels R74.01 Vitamin D insufficiency E55.9 Elevated BP without diagnosis of hypertension R03.0 Assessment & Plan Assessment & Plan (1) Encounter to discuss test results: Code(s): Z71.2 - Person consulting for explanation of examination or test findings (2) Microcytic anemia: Code(s): D50.9 - Iron deficiency anemia, unspecified (3) History of bariatric surgery: Code(s): Z98.84 - Bariatric surgery status (4) Eosinophilia: Code(s): D72.10 - Eosinophilia, unspecified Qualifiers: Eosinophilia type: unspecified eosinophilia Qualified Code(s): D72.10 - Eosinophilia, unspecified (5) Elevation of levels of liver transaminase levels: Code(s): R74.01 - Elevation of levels of liver transaminase levels (6) Vitamin D insufficiency: Code(s): E55.9 - Vitamin D deficiency, unspecified Category: Medical (7) Elevated BP without diagnosis of hypertension: Code(s): R03.0 - Elevated blood-pressure reading, without diagnosis of hypertension Plan Orders: Orders IRON PROFILE Today D50.9 - Iron deficiency anemia, unspecified Vitamin B12 and Folate Today E55.9 - Vitamin D deficiency, unspecified, Z71.2 - Person consulting for explanation of examination or test findings, Z98.84 - Bariatric surgery status Ferritin Today D50.9 - Iron deficiency anemia, unspecified Reticulocyte Count Today D50.9 - Iron deficiency anemia, unspecified Transferrin Today D50.9 - Iron deficiency anemia, unspecified Vitamin D 1,25 dihydroxy Today E55.9 - Vitamin D deficiency, unspecified, Z71.2 - Person consulting for explanation of examination or test findings, Z98.84 - Bariatric surgery status Medications: New [blood pressure kit] As directed 1 ea 0RF ferrous sulfate (iron) 325 mg PO DAILY 30 tabs 2RF ascorbic acid (vitamin C) Take with iron for better iron absorption 500 mg PO DAILY 30 tabs 0RF
[2025-02-24 13:41] VITALS: BP 142/80; PULSE 67; RESP 16; TEMP 36.7; O2SAT 99; BMI 38.9
--- OUTSIDE RECORDS SUMMARY | 2025-02-24 17:31 | XMS_ITS | Encounter Summary ---
Author Organization [facility] Home Health Address [address] [place] [address] Care Team Providers Care Handling Tech Name Role Phone Ivone Brown Primary Care Provider [phone] Reason for Visit * Reason Comments Medication Refill Encounter Details Date Type Department Care Team (Late st Contact Info) Description 01/06/2022 Refill [facility] [place] [address] [address] Perla Gomez PA [address] [place] [phone] Medication Refill Social History Tobacco Use [...] documented as of this encounter Care Teams Handling Tech Relationship Specialty Start Date End Date Ivone Brown PA [address] [place] [address] PCP - General Physician Donor Floor Technician 08/04/24 documented as of this encounter
--- OUTSIDE RECORDS SUMMARY | 2025-02-24 17:31 | XMS_ITS | Clinical Summary ---
Author Organization [address] Address [address] [place] [phone] Phone Care Team Providers Care Hvac Journeyman Name Role Phone Ivone Brown Primary Care Provider [phone] Allergies Active Allergy Reactions Criticality Noted Date Comments Asa-Calcium [id number]-[id number] Shortness Of Breath High 01/14/2019 Aspirin 01/17/2019 [...] your living situation today? I have a [facility] place to live 08/04/2024 Housing Stability [...] 136 - 144 mmol/L 03/27/2024 10:00 AM [facility] Potassium 3.9 3.3 - 5.3 mmol/L 03/27/2024 10:00 AM [facility] Chloride 106 98 - 107 mmol/L 03/27/2024 10:00 AM [facility] CO2 28 20 - 30 mmol/L 03/27/2024 10:00 AM [facility] Anion Gap 6(L) 7 - 17 03/27/2024 10:00 AM [facility] Glucose 88 70 - 100 mg/dL 03/27/2024 10:00 AM [facility] BUN 15 6 - 20 mg/dL 03/27/2024 10:00 AM [facility] Creatinine 0.67 0.40 - 1.30 mg/dL 03/27/2024 10:00 AM [facility] Calcium 8.8 8.8 - 10.2 mg/dL 03/27/2024 10:00 AM [facility] BUN/Creatinine Ratio 22.4 8.0 - 23.0 03/27/2024 10:00 AM [facility] Total Protein 6.6 5.9 - 8.3 g/dL 024 10:00 AM [facility] Comment:As of 2023, th e reference interval for Total Protein has been changed from (6.6 to 8.7 g/dL) to (5.9 to 8.3 g/dL). Albumin 3.5(L) 3.6 - 5.1 g/dL 03/27/2024 10:00 AM [facility] Comment:As of 2023, th e reference interval for Albumin has been changed from (3.6 to 4.9 g/dL) to (3.6 to 5.1 g/dL). Total Bilirubin 0.4 <=1.2 mg/dL 03/27/20 24 10:00 AM [facility] Alkaline Phosphatase 67 9 - 122 U/L 03/27/2024 10:00 AM [facility] Alanine Aminotransferase (ALT) 16 10 - 35 U/L 03/27/2024 10:00 AM [facility] Comment:Calcium dobesilate c an cause artificially low ALT results at therapeutic concentrations Aspartate Aminotransferase (AST) 20 10 - 35 U/L 03/27/2024 10:00 AM [facility] Globulin 3.1 2.0 - 3.9 g/dL 03/27/2024 10:00 AM [facility] Comment:As of 2023, th e reference interval for Globulin has been changed from (2.3 to 3.5 g/dL) to (2.0 to 3.9 g/dL). A/G Ratio 1.1 1.0 - 2.2 03/27/2024 10:00 AM [facility] AST/ALT Ratio 1.3 Reference Range Not Established 03/27/2024 10:00 AM [facility] eGFR (Creatinine) >60 >=60 mL/min/1.73m2 03/27/2024 10:00 AM [facility] Comment: [facility] utilizes CKD-EPI Creatinine 2020 to report eGFR. Values < 60 mL/min/1.73 m2 may indicate CKD if present for more than three months AND creatinine is at steady state. The eGFR provides a rough estimate of kidney function. For further guidance, please refer to the CKD: Adult Large Sheetfed Press Operator Signature pathway. Blood Venipuncture / Unknown 03/27/2024 9:23 AM EDT 03/27/2024 9:33 AM EDT us Breana Estrada MD LAB BLOOD ORDERABLES Fin al Result [address] [phone] * Colonoscopy (02/22/2021 7:24 AM EDT) Colonoscopy Endoscopy Patient Name: Joaquin De León Procedure Date: 02/22/2021 7:24 AM Date of : 1980 Age: 40 Gender: Female Admit Type: Outpatient [facility] #: [id number] Note Status: Finalized Attending MD: Radha Mckeon [...] oxygen saturations were monitored continuously. The [id number] was introduced through the anus and advanced to the cecum, identified by appendiceal orifice and ileocecal valve. The colonoscopy was performed without difficulty. The patient tolerated the procedure well. The quality of the bowel preparation was evaluated using the BBPS (Pioneer Bowel Preparation Scale) with scores of: Right [...] pathology results. Procedure Code(s): --- Professional --- 10475, Colonoscopy, flexible; with removal of tumor(s), polyp(s), or other lesion(s) by snare technique Diagnosis Code(s): --- Professional --- Z80.0, Family history of malignant neoplasm of digestive organs K63.5, Polyp of colon K64.8, Other hemorrhoids K57.30, Diverticulosis of large intestine without perforation or abscess without bleeding CPT copyright 2020 [employer]. All rights reserved. The codes documented in this report are preliminary and upon tierce filler review may be revised to meet current compliance requirements. Attending Participation: I was present and participated during the entire procedure, including non-carrasquillo portions. ___ Radha Mckeon MD 02/22/2021 1:44:31 PM This report has been signed electronically. Number of Addenda: 0 Note Initiated On: 02/22/2021 7:24 AM Estimated Blood Loss: Estimated blood loss was minimal. Scope In: Scope Out: [facility] 02/22/2021 7:24 AM EDT us Shannon Nunn MD GI PROCEDURE ORDERABLES Final Result [facility] * Cholesterol, total (01/24/2021 10:51 AM EDT) Cholesterol, Total 147 <200 mg/dL [facility] Blood 01/24/2021 10:5 1 AM EDT 01/24/2021 10:52 AM EDT Narrative [facility] - 01/29/2021 11:40 AM EDT FASTING:YES FASTING: YES Resulting Agency Comment Performing Lab: Site ID: [id number] Name: [id number] Address: [address] [place] [address], [place] [address] Director: Bianca Senior M.D. us Zaheer Mcdaniel MD MPH LAB BLOOD ORDERABLES Final Result Performing Organization Address City[facility] Co de Phone Number [facility] [address] [place] [address] from Last 3 Months or Most Recently Relevant to Health Maintenance Insurance [place]ID [place] Advance Directives * Full ACLS (Latest Code Status on File) Date Activated Date Inactivated Comments 01/17/2022 6:12 PM 01/20/2022 2:42 PM Care Teams Hvac Journeyman Relationship Specialty Start Date End Date Ivone Brown PA [address] [place] [address] PCP - General Physician Software Support Engineer 08/04/24
--- OUTSIDE RECORDS SUMMARY | 2025-02-24 17:31 | XMS_ITS | Encounter Summary ---
Author Organization [facility] Address [address] [place] [phone] Care Team Providers Care Electronics Parts Sales Representative Name Role Phone Ivone Brown Primary Care Provider [phone] Reason for Visit * Reason Comments Medication Refill Encounter Details Date Type Department Care Team (Late st Contact Info) Description 11/22/2021 Refill [facility] [address] [facility] [address] [place] [address] Sanjuanita Sharp PA [address] [place] [phone] Medication Refill Social History Tobacco Use Types [...] documented as of this encounter Care Teams Electronics Parts Sales Representative Relationship Specialty Start Date End Date Ivone Brown PA [address] [place] [address] PCP - General Physician Cable Engineer 08/04/24 documented as of this encounter
--- OUTSIDE RECORDS SUMMARY | 2025-02-24 17:31 | XMS_ITS | Encounter Summary ---
Author Organization [facility] Address [address] [place] [address] Care Team Providers Care Software Qa System Specialist Name Role Phone Ivone Brown Primary Care Provider [phone] Reason for Visit * Reason Comments Medication Refill Encounter Details Date Type Department Care Team (Late st Contact Info) Description 03/03/2022 Refill [facility] [place] [address] [address] Perla Gomez PA [address] [place] [phone] Medication Refill Social History Tobacco Use [...] documented as of this encounter Care Teams Software Qa System Specialist Relationship Specialty Start Date End Date Ivone Brown PA [address] [place] [address] PCP - General Physician Supervisor Tumblers 08/04/24 documented as of this encounter
--- OUTSIDE RECORDS SUMMARY | 2025-02-24 17:31 | XMS_ITS | Encounter Summary ---
Author Organization [facility] [employer] [facility] and [facility] Address [address] [place] [phone] Care Team Providers Care Blanket Binder Name Role Phone Ivone Brown Primary Care Provider [phone] Encounter Details Date Type Department Care Team (Late st Contact Info) Description 10/04/2020 Scanned Document [facility] at [address] [place], [place] [phone] Zaheer Mcdaniel MD MPH [address] [place] [address] Social History Tobacco Use Types [...] documented as of this encounter Care Teams Blanket Binder Relationship Specialty Start Date End Date Ivone Brown PA [address] [place] [phone] PCP - General Physician Rubbish Collection Supervisor 08/04/24 documented as of this encounter
--- OUTSIDE RECORDS SUMMARY | 2025-02-24 17:31 | XMS_ITS | Encounter Summary ---
Author Organization [facility] Address [address] [place] [address] Phone Care Team Providers Care Sports Marketing Coordinator Name Role Phone Ivone Brown Primary Care Provider [phone] Reason for Visit * Reason Comments Medication Refill Encounter Details Date Type Department Care Team (Late st Contact Info) Description 02/13/2023 [place] [address] Shannon Nunn MD [address] [place], [place] [phone] Medication Refill Social History Tobacco Use Types [...] documented as of this encounter Care Teams Sports Marketing Coordinator Relationship Specialty Start Date End Date Ivone Brown PA [address] [place] [address] PCP - General Physician Residential Roofer 08/04/24 documented as of this encounter
--- OUTSIDE RECORDS SUMMARY | 2025-02-24 17:31 | XMS_ITS | Encounter Summary ---
Author Organization [facility] Address [address] [place] [phone] Care Team Providers Care Vaccines Solutions Specialist Name Role Phone Ivone Brown Primary Care Provider Reason for Visit * Reason Comments Medication Refill Encounter Details Date Type Department Care Team (Late st Contact Info) Description 08/20/2021 Refill [facility] [address] [place] [address] Sanjuanita Sharp PA [address] [place] [phone] Medication Refill Social History Tobacco Use Types [...] documented as of this encounter Care Teams Vaccines Solutions Specialist Relationship Specialty Start Date End Date Ivone Brown PA [address] [place] [address] PCP - General Physician [employer] 08/04/24 documented as of this encounter
--- OUTSIDE RECORDS SUMMARY | 2025-02-24 17:31 | XMS_ITS | Encounter Summary ---
Author Organization [facility] and Home Health Address [address] [place] [address] Care Team Providers Care Power Digger Operator Name Role Phone Ivone Brown Primary Care Provider [phone] Encounter Details Date Type Department Care Team (Late st Contact Info) Description 08/23/2020 Scanned Document [facility] PM Rheumatology [address] [place], [place] [phone] Rigoberto Bautista MD [address] [place], [place] [phone] [place] [address] Social History Tobacco Use Types [...] documented as of this encounter Care Teams Power Digger Operator Relationship Specialty Start Date End Date Ivone Brown PA [address] [place] [phone] PCP - General Physician Drop Wire Builder 08/04/24 documented as of this encounter
--- OUTSIDE RECORDS SUMMARY | 2025-02-24 17:31 | XMS_ITS | Encounter Summary ---
Author Organization [facility] and [facility] Address [address] [place] [address] Care Team Providers Care Skin Grader Name Role Phone vIone Brown Primary Care Provider [phone] Reason for Visit * Reason Comments Medication Refill Encounter Details Date Type Department Care Team (Late st Contact Info) Description 09/26/2021 Refill [facility] [address] [place] [address] Sanjuanita Sharp PA [address] [place] [phone] Medication Refill Social History Tobacco Use Types [...] documented as of this encounter Care Teams Skin Grader Relationship Specialty Start Date End Date Ivone Brown PA [address] [place] [address] PCP - General Physician Environmental Compliance Inspector 08/04/24 documented as of this encounter
--- OUTSIDE RECORDS SUMMARY | 2025-02-24 17:31 | XMS_ITS | Encounter Summary ---
Author Organization [facility] [employer] System and [facility] Address [address] [place] [address] Care Team Providers Care Cryptological Technician Name Role Phone Ivone Brown Primary Care Provider [phone] Reason for Visit * Reason Onset Date Comments Medication Refill 07/10/2023 Encounter Details Date Type Department Care Team (Late st Contact Info) Description 07/10/2023 Refill [facility] at [address] [place], [place] [address] Zaheer Mcdaniel MD MPH [address] [place] [address] Medication Refill Social History Tobacco [...] documented as of this encounter Care Teams Cryptological Technician Relationship Specialty Start Date End Date Ivone Brown PA [address] [place] [address] PCP - General Physician Mud Engineer 08/04/24 documented as of this encounter
--- OUTSIDE RECORDS SUMMARY | 2025-02-24 17:31 | XMS_ITS | Encounter Summary ---
Author Organization [facility] and [facility] Address [address] [place] [address] Care Team Providers Care Liquefaction And Regasification Helper Name Role Phone Ivone Brown Primary Care Provider [phone] Reason for Visit * Reason Comments Medication Refill Encounter Details Date Type Department Care Team (Late st Contact Info) Description 12/02/2021 Refill [facility] [address] [place] [address] Sanjuanita Sharp PA [address] [place] [phone] Medication Refill Social History Tobacco Use Types [...] documented as of this encounter Care Teams Liquefaction And Regasification Helper Relationship Specialty Start Date End Date Ivone Brown PA [address] [place] [address] PCP - General Physician Loan Analyst 08/04/24 documented as of this encounter
--- OUTSIDE RECORDS SUMMARY | 2025-02-24 17:31 | XMS_ITS | Encounter Summary ---
Author Organization [facility] ou and Home [facility] Address [address] [place] [address] Care Team Providers Care Signalman Name Role Phone Ivone Brown Primary Care Provider [phone] Reason for Visit * Reason Comments Medication Refill Encounter Details Date Type Department Care Team (Late st Contact Info) Description 01/19/2022 Refill [facility] [place] [address] [address] Perla Gomez PA [address] [place] [address] Medication Refill Social History Tobacco Use [...] documented as of this encounter Care Teams Signalman Relationship Specialty Start Date End Date Ivone Brown PA [address] [place] [address] PCP - General Physician Business Objects 08/04/24 documented as of this encounter
--- OUTSIDE RECORDS SUMMARY | 2025-02-24 17:31 | XMS_ITS | Encounter Summary ---
Author Organization [facility] Care Address [address] [place] [address] Phone Care Team Providers Care Spring Tier Name Role Phone Ivone Brown Primary Care Provider [phone] Encounter Details Date Type Department Care Team (Late st Contact Info) Description 08/05/2024 Documentation [facility] [address] [place] [address] Edna Downs LMSW Social History Tobacco Use [...] documented as of this encounter Care Teams Spring Tier Relationship Specialty Start Date End Date Ivone Brown PA [address] [place] [address] PCP - General Physician Technical Translator 08/04/24 documented as of this encounter
--- OUTSIDE RECORDS SUMMARY | 2025-02-24 17:31 | XMS_ITS | Encounter Summary ---
Author Organization [facility] ou and Home Health Address [address] [place] [address] Care Team Providers Care Application Administrator Name Role Phone Ivone Brown Primary Care Provider [phone] Reason for Visit * Reason Comments Medication Refill Encounter Details Date Type Department Care Team (Late st Contact Info) Description 12/25/2021 Refill [facility] [place] [address] [address] Perla Gomez PA [address] [place] [address] Medication Refill Social History Tobacco Use [...] documented as of this encounter Care Teams Application Administrator Relationship Specialty Start Date End Date Ivone Brown PA [address] [place] [address] PCP - General Physician Slope Runner 08/04/24 documented as of this encounter
--- OUTSIDE RECORDS SUMMARY | 2025-02-24 17:31 | XMS_ITS | Encounter Summary ---
Author Organization [facility] [employer] System and [facility] Address [address] [place] [address] Care Team Providers Care Alpaca Farmer Name Role Phone Ivone Brown Primary Care Provider [phone] Encounter Details Date Type Department Care Team (Late st Contact Info) Description 08/23/2020 Scanned Document [facility] at 40 [facility] 40 [facility] [address] [place] [address] Perla Gomez PA [address] [place] [address] Social History Tobacco Use Types [...] documented as of this encounter Care Teams Alpaca Farmer Relationship Specialty Start Date End Date Ivone Brown PA [address] [place] [phone] PCP - General Physician Jacquard Loom Fixer 08/04/24 documented as of this encounter
--- OUTSIDE RECORDS SUMMARY | 2025-02-24 17:31 | XMS_ITS | Encounter Summary ---
Author Organization [facility] and [facility] Address [address] [place] [address] Care Team Providers Care Quarrying Specialist Name Role Phone Ivone Brown Primary Care Provider [phone] Reason for Visit * Reason Comments Medication Refill Encounter Details Date Type Department Care Team (Late st Contact Info) Description 10/22/2021 Refill [facility]A [facility]Note 3[facility] [address] [place] [address] Sanjuanita Sharp PA [address] [place] [phone] Medication Refill Social History Tobacco Use Types [...] documented as of this encounter Care Teams Quarrying Specialist Relationship Specialty Start Date End Date Ivone Brown PA [address] [place] [address] PCP - General Physician Dictaphone Transcriber 08/04/24 documented as of this encounter
--- OUTSIDE RECORDS SUMMARY | 2025-02-24 17:31 | XMS_ITS | Encounter Summary ---
Author Organization [facility] [employer] System and [facility] Address [address] [place] [address] Care Team Providers Care Whitewasher Name Role Phone Ivone Brown Primary Care Provider [phone] Encounter Details Date Type Department Care Team (Late st Contact Info) Description 12/07/2020 Scanned Document [facility] at [address] [place] [address] Miguel Angel, RN Social History Tobacco Use [...] documented as of this encounter Care Teams Whitewasher Relationship Specialty Start Date End Date Ivone Brown PA [address] [place] [phone] PCP - General Physician Assistant Professor Of Geography 08/04/24 documented as of this encounter
--- OUTSIDE RECORDS SUMMARY | 2025-02-24 17:31 | XMS_ITS | Encounter Summary ---
Author Organization [facility] Address [address] [place] [address] Phone Care Team Providers Care Quality Assurance Assessor Name Role Phone Ivone Brown Primary Care Provider [phone] Reason for Visit * Reason Comments Medication Refill Encounter Details Date Type Department Care Team (Late st Contact Info) Description 12/18/2022 Refill [facility] [address] [address] Shannon Nunn MD [address] [place], [place] [phone] Medication Refill Social History Tobacco Use Types [...] documented as of this encounter Care Teams Quality Assurance Assessor Relationship Specialty Start Date End Date Ivone Brown PA [address] [place] [address] PCP - General Physician Cosmetic Sales Consultant 08/04/24 documented as of this encounter
--- OUTSIDE RECORDS SUMMARY | 2025-02-24 17:31 | XMS_ITS | Encounter Summary ---
Author Organization [facility] [employer] [facility] and [facility] Address [address] [place] [address] Care Team Providers Care Deliverer Pharmacy Name Role Phone Ivone Brown Primary Care Provider [phone] Encounter Details Date Type Department Care Team (Latest Contact Info) Description 01/05/2022 Transcribed Orders [facility] [place] [address] Zaheer Mcdaniel MD MPH [address] [facility] [address] [place] [address] Severe obesity (HC Code) (HC [...] 8:42 AM EDT) Heart Rate 66 bpm [facility] ECG QRS Duration 90 ms [facility] ECG Q-T Interval 412 ms [facility] ECG QTC Calculation(Be zet) [address] [facility] ECG P Hubert [address] [facility] ECG R Hubert [address] [facility] ECG T Hubert [address] [facility] ECG P-R Interval 150 msec [facility] ECG SEVERITY Normal ECG severity [facility] ECG Comment::Normal sinus rhythm :Normal ECG:Electronically Signed On 01-05-2022 18:52:20 EDT by AR METZ MD 01/05/2022 8:42 AM EDT us Zaheer Mcdaniel MD MPH ECG ORDERABLES Final Resul t [facility] ECG documented in this encounter Visit Diagnoses [...] documented as of this encounter Care Teams Deliverer Pharmacy Relationship Specialty Start Date End Date Iovne Brown PA [address] [place] [address] PCP - General Physician Superintendent Stations 08/04/24 documented as of this encounter
--- OUTSIDE RECORDS SUMMARY | 2025-02-24 17:31 | XMS_ITS | Encounter Summary ---
Author Organization [facility] Address [address] [place] [address] Phone Care Team Providers Care Vp Home Health Name Role Phone Ivone Brown Primary Care Provider [phone] Reason for Visit * Reason Comments Medication Refill Encounter Details Date Type Department Care Team (Late st Contact Info) Description 03/03/2022 Refill [facility] at [address] [address] Shannon Nunn MD [address] [place], [place] [phone] Medication Refill Social History Tobacco Use Types [...] documented as of this encounter Care Teams Vp Home Health Relationship Specialty Start Date End Date Ivone Brown PA [address] [place] [phone] PCP - General Physician Senior Sql Server Dba 08/04/24 documented as of this encounter
--- OUTSIDE RECORDS SUMMARY | 2025-02-24 17:31 | XMS_ITS | Patient Health Record ---
Author Organization [facility], Address [address] [place] [address] Support Name Relationship Address Phone Joaquin Crenshaw Guarantor Unknown [phone] Reason For Referral No Information Problems No Known Problems Plan Of Treatment No Information Insurance Providers Payer Name Payer Address Payer Phone Subscriber Number Group Number Insured Name Patient Relationship to Insured Coverage Start Date Coverage End Date Medicaid of [place] [address] [place] [address] [id number] Joaquin Crenshaw Self - patient is the insured
--- OUTSIDE RECORDS SUMMARY | 2025-02-24 17:31 | XMS_ITS | Encounter Summary ---
Author Organization [facility] Address [address] [place] [address] Phone Care Team Providers Care Stucco Worker Name Role Phone Ivone Brown Primary Care Provider [phone] Reason for Visit * Reason Comments Medication Refill Encounter Details Date Type Department Care Team (Late st Contact Info) Description 03/06/2023 [place] [address] Shannon Nunn MD [address] [place], [place] [phone] Medication Refill Social History Tobacco Use Types [...] documented as of this encounter Care Teams Stucco Worker Relationship Specialty Start Date End Date Ivone Brown PA [address] [place] [address] PCP - General Physician Level Glass Forming Machine Operator 08/04/24 documented as of this encounter
--- OUTSIDE RECORDS SUMMARY | 2025-02-24 17:31 | XMS_ITS | Encounter Summary ---
Author Organization [facility] Address [address] [place] [address] Phone Care Team Providers Care Venetian Blind Tape Cutter Name Role Phone Ivone Brown Primary Care Provider [phone] Reason for Visit * Reason Comments Medication Refill Encounter Details Date Type Department Care Team (Late st Contact Info) Description 01/19/2022 Refill [facility] at [address] [address] Shannon Nunn MD [address] [place], [place] [phone] Medication Refill Social History Tobacco Use Types [...] documented as of this encounter Care Teams Venetian Blind Tape Cutter Relationship Specialty Start Date End Date Ivone Brown PA [address] [place] [address] PCP - General Physician Church Communications Administrator 08/04/24 documented as of this encounter
== END 2025-02-24 14:04 | disposition home or self-care (01) ==
LOC: HO.HMCFMS 13:36
PROVIDERS: Visit Provider Student in an Organized Health Care Education/Training Program
DX: D50.9 Iron deficiency anemia, unspecified (principal); Z98.84 Bariatric surgery status; D72.10 Eosinophilia, unspecified; R74.01 Elevation of levels of liver transaminase levels; E55.9 Vitamin D deficiency, unspecified; R03.0 Elevated blood-pressure reading, without diagnosis of hypertension

== ENCOUNTER → 2025-02-24 13:36 | Outpatient (BNVA) | payer OTHER, SELFPAY | PROVIDERS: Visit Provider Student in an Organized Health Care Education/Training Program | DX: Z71.2 Person consulting for explanation of examination or test findings (principal); D50.9 Iron deficiency anemia, unspecified; D72.10 Eosinophilia, unspecified; R74.01 Elevation of levels of liver transaminase levels; E55.9 Vitamin D deficiency, unspecified; R03.0 Elevated blood-pressure reading, without diagnosis of hypertension; Z98.84 Bariatric surgery status | CPT/HCPCS: 99212 ==

== ENCOUNTER 2025-04-14 10:01 | Outpatient (AMB) | payer OTHER, SELFPAY ==
[2025-04-14 10:17] VITALS: BMI 39.7
--- NOTE | 2025-04-14 10:17 | MHC.AMNUTRGE ---
VS Expanded 04/14/25 10:17 Height 5 ft 5.5 in Weight 242 lb BMI 39.7 Intake Visit Reasons: obesity Allergies No Known Allergies Allergy (Verified 04/06/25 15:35) Nutrition Presentation Details: Pt presents for MNT f/u for obesity Pt reports lacking meal planning, and stress eating BS Monitoring Most Recent Diabetes Results: Cholesterol, (<200) 134 mg/dL 02/18/25 HDL Cholesterol, (>40) 50 mg/dL 02/18/25 Triglycerides, (<150) 59 mg/dL 02/18/25 Creatinine, (0.5-1.4) 0.70 mg/dL 02/18/25 BUN, (9-16) 21 mg/dL H 02/18/25 Sodium, (135-145) 143 mmol/L 02/18/25 Potassium, (3.3-5.1) 3.6 mmol/L 02/18/25 Chloride, (96-108) 108 mmol/L 02/18/25 Carbon Dioxide, (22-29) 27 mmol/L 02/18/25 Calcium, (8.4-10.2) 8.8 mg/dL 02/18/25 AST, (5-31) 34 U/L H 02/18/25 ALT, (0-31) 20 U/L 02/18/25 Total Protein, (6.5-8.0) 6.8 g/dL 02/18/25 Albumin, (3.5-5.0) 3.6 g/dL 02/18/25 [facility] Medical History (Updated 02/24/25 @ 20:[address], LDN) Vitamin D insufficiency PTSD (post-traumatic stress disorder) Epigastric pain Severe obesity LUIS FERNANDO (obstructive sleep apnea) Depression Panic disorder Morbid obesity Abdominal pain Surgical History H/O colonoscopy S/P laparoscopic surgery H/O endoscopy Hx laparoscopic cholecystectomy Bariatric surgery status S/P gastric sleeve procedure Family History Father High cholesterol High triglycerides High blood pressure Stroke Mother Uterus cancer High blood pressure Glaucoma (increased eye pressure) Lupus (systemic lupus erythematosus) Social History Housing: House Alcohol intake: current Alcohol intake frequency: does not drink Patient Tobacco Use Status: Never used Tobacco service: No Current occupational status: employed Cognitive needs: No Hearing needs: No Vision needs: No Assessment & Plan Assessment & Plan (1) Obesity (BMI 30-39.9): Code(s): E66.9 - Obesity, unspecified Category: Medical Plan: current wt: 106 kg (03/05 ), 110 (() est kcal needs as per MSJ: 2000 est protein needs as per 1 g/kg BW: 100 est fluid needs as per 30 ml/kg BW: 3200 Recommended fiber > 12 g /day and gradually increase up to 25-28 g /day or as tolerated Sodium recommendation: <2300 mg/d Nutrition topics discussed : Reviewed (R), Pt verbalized understanding (V) , not applicable (N/A) R,V : Healthy Plate Method Concept: R, : Carbohydrates: food sources of carbohydrates, relationship of carbohydrates to blood glucose, fatty liver GI health. Recommended total amount of carbohydrates per meals and snack. Differences between simple carbohydrates and complex carbohydrates R, : Lean protein foods including vegan , vegetarian sources of protein. Benefits of protein (including but not limited to healing, nutritional value , benefits in weight loss, glucose control RECOMMEND 100 g/day R, : Fats : Source of fats, benefits of fats. Difference between saturated and unsaturated fats. Saturated fats and its contribution to inflammation R, V, N/A: Fiber: food sources and role of fiber in the diet (including but not limited to its role as a prebiotic, benefits in constipation, role in IBS , role in glucose control and cholesterol level) R, V, N/A: Hydration: role of hydration and prevention of dehydration or over hydration. Foods and water content. R, V, N/A: Vitamins and Minerals in foods and supplements R, V, N/A: Interpreting food labels, including serving size, macronutrients, vitamins, minerals, allergens, ingredient list , % daily value Patient Instructions: Resume meal planning , meal prep, total carbohydrates 45-60 g per meal, Have fiber supplement in the evening Coding Level of Care Code Nutr Indiv Subseq (68162) Diagnoses Obesity (BMI 30-39.9) E66.9 Time Spent (min) 30
--- OUTSIDE RECORDS SUMMARY | 2025-04-14 11:39 | XMS_ITS | Encounter Summary ---
Author Organization [facility] [employer] System and [facility] Address [address] [place] [address] Care Team Providers Care Deputy Juvenile Officer Name Role Phone Ivone Brown Primary Care Provider [phone] Reason for Visit * Reason Comments Medication Refill Encounter Details Date Type Department Care Team (Late st Contact Info) Description 12/02/2021 Refill [facility] at [address] [address] Sanjuanita Sharp PA [address] [place] [address] Medication Refill Social History Tobacco Use Types [...] documented as of this encounter Care Teams Deputy Juvenile Officer Relationship Specialty Start Date End Date Ivone Brown PA [address] [place] [address] PCP - General Physician Corrections Officer 08/04/24 documented as of this encounter
--- OUTSIDE RECORDS SUMMARY | 2025-04-14 11:39 | XMS_ITS | Encounter Summary ---
Author Organization [facility] ou and Home Health Address [address] [place] [address] Care Team Providers Care Tearoom Hostess Name Role Phone Ivone Brown Primary Care Provider [phone] Reason for Visit * Reason Comments Medication Refill Encounter Details Date Type Department Care Team (Late st Contact Info) Description 12/25/2021 Refill [facility] [place] [address] [address] Perla Gomez PA [address] [place] [phone] Medication Refill Social History Tobacco Use [...] documented as of this encounter Care Teams Tearoom Hostess Relationship Specialty Start Date End Date Ivone Brown PA [address] [place] [address] PCP - General Physician Painter Spray 08/04/24 documented as of this encounter
--- OUTSIDE RECORDS SUMMARY | 2025-04-14 11:39 | XMS_ITS | Encounter Summary ---
Author Organization [facility] Address [address] [place] [address] Phone Care Team Providers Care Mental Retardation Nurse Name Role Phone Ivone Brown Primary Care Provider [phone] Reason for Visit * Reason Comments Medication Refill Encounter Details Date Type Department Care Team (Late st Contact Info) Description 12/18/2022 Refill [facility] [address] [address] Shannon Nunn MD [address] [place], [place] [phone] Medication Refill Social History Tobacco Use Types [...] documented as of this encounter Care Teams Mental Retardation Nurse Relationship Specialty Start Date End Date Ivone Brown PA [address] [place] [address] PCP - General Physician Superintendent Drilling And Production 08/04/24 documented as of this encounter
--- OUTSIDE RECORDS SUMMARY | 2025-04-14 11:39 | XMS_ITS | Encounter Summary ---
Author Organization [facility] [employer] System and [facility] Address [address] [place] [address] Care Team Providers Care Primer Waterproofing Machine Operator Name Role Phone Ivone Brown Primary Care Provider [phone] Reason for Visit * Reason Comments Medication Refill Encounter Details Date Type Department Care Team (Late st Contact Info) Description 10/22/2021 Refill [facility] at [address] [address] Sanjuanita Sharp PA [address] [place] [address] Medication Refill Social History Tobacco [...] documented as of this encounter Care Teams Primer Waterproofing Machine Operator Relationship Specialty Start Date End Date Ivone Brown PA [address] [place] [address] PCP - General Physician Port Engineer 08/04/24 documented as of this encounter
--- OUTSIDE RECORDS SUMMARY | 2025-04-14 11:39 | XMS_ITS | Encounter Summary ---
Author Organization [facility] [employer] System and [facility] Address [address] [place] [address] Care Team Providers Care Primary Class Teacher Name Role Phone Ivone Brown Primary Care Provider [phone] Reason for Visit * Reason Comments Medication Refill Encounter Details Date Type Department Care Team (Late st Contact Info) Description 11/22/2021 Refill [facility] [address] [address] Sanjuanita Sharp PA [address] [place] [address] Medication Refill Social History Tobacco [...] documented as of this encounter Care Teams Primary Class Teacher Relationship Specialty Start Date End Date Ivone Brown PA [address] [place] [address] PCP - General Physician Enterprise Business Architect 08/04/24 documented as of this encounter
--- OUTSIDE RECORDS SUMMARY | 2025-04-14 11:39 | XMS_ITS | Encounter Summary ---
Author Organization [facility] ou and Home Health Address [address] [place] [address] Care Team Providers Care Automatic Stacker Name Role Phone Ivone Brown Primary Care Provider [phone] Reason for Visit * Reason Comments Medication Refill Encounter Details Date Type Department Care Team (Late st Contact Info) Description 01/19/2022 Refill [facility] [place] [address] [address] Perla Gomez PA [address] [place] [phone] Medication Refill Social History Tobacco Use [...] as of this encounter Care Teams Automatic Stacker Relationship Specialty Start Date End Date Ivone Brown PA [address] [place] [address] PCP - General Physician Contract Runner 08/04/24 documented as of this encounter
--- OUTSIDE RECORDS SUMMARY | 2025-04-14 11:39 | XMS_ITS | Encounter Summary ---
Author Organization [facility] [employer] [facility] and [facility] Address [address] [place] [address] Care Team Providers Care Hot Blaster Name Role Phone Ivone Brown Primary Care Provider [phone] Encounter Details Date Type Department Care Team (Latest Contact Info) Description 01/05/2022 Transcribed Orders [place] [address] Zaheer Mcdaniel MD MPH [address] [facility] [address] [place] [address] Severe obesity (HC Code) (HC [...] AM EDT) Heart Rate 66 bpm [facility] ECG QRS Duration 90 ms [facility] ECG Q-T Interval 412 ms [facility] ECG QTC Calculation(Be zet) 431 ms ECG P [place] 41 deg ECG R [place]ijer[place] 70 deg ECG T [place] 31 deg ECG P-R Interval 150 msec [facility] ECG SEVERITY Normal ECG severity [facility] ECG Comment::Normal sinus rhythm :Normal ECG:Electronically Signed On 01-05-2022 18:52:20 EDT by AR METZ MD 01/05/2022 8:42 AM EDT us Zaheer Mcdaniel MD MPH ECG ORDERABLES Final Resul t ECG documented in this encounter Visit Diagnoses [...] as of this encounter Care Teams Hot Blaster Relationship Specialty Start Date End Date Ivone Brown PA [address] [place] [phone] PCP - General Physician Manager Massage Department 08/04/24 documented as of this encounter
--- OUTSIDE RECORDS SUMMARY | 2025-04-14 11:39 | XMS_ITS | Encounter Summary ---
Author Organization [facility] Address [address] [place] [address] Phone Care Team Providers Care Plan Examiner Name Role Phone Ivone Brown Primary Care Provider [phone] Reason for Visit * Reason Comments Medication Refill Encounter Details Date Type Department Care Team (Late st Contact Info) Description 01/19/2022 Refill [facility] [address] [address] Shannon Nunn MD [address] [place], [place] [phone] Medication Refill Social History Tobacco Use Types [...] documented as of this encounter Care Teams Plan Examiner Relationship Specialty Start Date End Date Ivone Brown PA [address] [place] [address] PCP - General Physician Hammer Shop Supervisor 08/04/24 documented as of this encounter
--- OUTSIDE RECORDS SUMMARY | 2025-04-14 11:39 | XMS_ITS | Encounter Summary ---
Author Organization [facility] Address [address] [place] [address] Phone Care Team Providers Care Provider Relations Representative Name Role Phone Ivone Brown Primary Care Provider Reason for Visit * Reason Comments Medication Refill Encounter Details Date Type Department Care Team (Late st Contact Info) Description 03/03/2022 Refill [facility] [address] [address] Shannon Nunn MD [address] [place], [place] [phone] Medication Refill Social History Tobacco Use Types [...] documented as of this encounter Care Teams Provider Relations Representative Relationship Specialty Start Date End Date Ivone Brown PA [address] [place] [phone] PCP - General Physician Professor Of Business 08/04/24 documented as of this encounter
--- OUTSIDE RECORDS SUMMARY | 2025-04-14 11:39 | XMS_ITS | Encounter Summary ---
Author Organization [facility] [employer] System and [facility] Address [address] [place] [address] Care Team Providers Care Teletype Mechanic Name Role Phone Ivone Brown Primary Care Provider Reason for Visit * Reason Comments Medication Refill Encounter Details Date Type Department Care Team (Late st Contact Info) Description 09/26/2021 Refill [facility] [address] [address] Sanjuanita Sharp PA [address] [place] [address] Medication Refill Social History Tobacco [...] documented as of this encounter Care Teams Teletype Mechanic Relationship Specialty Start Date End Date Ivone Brown PA [address] [place] [address] PCP - General Physician Station Chief 08/04/24 documented as of this encounter
--- OUTSIDE RECORDS SUMMARY | 2025-04-14 11:39 | XMS_ITS | Encounter Summary ---
Author Organization [facility] ou and [facility] Address [address] [place] [address] Care Team Providers Care Nurses Director Name Role Phone Ivone Brown Primary Care Provider [phone] Reason for Visit * Reason Comments Medication Refill Encounter Details Date Type Department Care Team (Late st Contact Info) Description 01/06/2022 Refill [facility] [place] [address] [address] Perla Gomez PA [address] [place] [phone] Medication Refill Social History Tobacco Use [...] documented as of this encounter Care Teams Nurses Director Relationship Specialty Start Date End Date Ivone Brown PA [address] [place] [address] PCP - General Physician Dissolver Operator 08/04/24 documented as of this encounter
--- OUTSIDE RECORDS SUMMARY | 2025-04-14 11:39 | XMS_ITS | Encounter Summary ---
Author Organization [facility] [employer] [facility] and [facility] Address [address] [place] [address] Care Team Providers Care Vat Cleaner Name Role Phone Ivone Brown Primary Care Provider Reason for Visit * Reason Comments Medication Refill Encounter Details Date Type Department Care Team (Late st Contact Info) Description 08/20/2021 Refill [facility] [address] [address] Sanjuanita Sharp PA [address] [place] [address] Medication Refill Social History Tobacco [...] documented as of this encounter Care Teams Vat Cleaner Relationship Specialty Start Date End Date Ivone Brown PA [address] [place] [address] PCP - General Physician Photoengraving Retoucher 08/04/24 documented as of this encounter
--- OUTSIDE RECORDS SUMMARY | 2025-04-14 11:40 | XMS_ITS | Encounter Summary ---
Author Organization [facility] [employer] [facility] and [facility] Address [address] [place] [address] Care Team Providers Care Electronic Parts Salesperson Name Role Phone Ivone Brown Primary Care Provider [phone] Encounter Details Date Type Department Care Team (Late st Contact Info) Description 08/23/2020 Scanned Document [facility] [address] [facility] [address] [facility] [address] [place] [address] Perla Gomez PA [address] [place] [address] Social History Tobacco Use Types [...] as of this encounter Care Teams Electronic Parts Salesperson Relationship Specialty Start Date End Date Ivone Brown PA [address] [place] [phone] PCP - General Physician Aircraft Painter 08/04/24 documented as of this encounter
--- OUTSIDE RECORDS SUMMARY | 2025-04-14 11:40 | XMS_ITS | Patient Health Record ---
Author Organization [facility], Address [address] [place] [address] Support Name Relationship Address Phone Joaquin Crenshaw Guarantor Unknown Reason For Referral No Information Problems No Known Problems Plan Of Treatment No Information Insurance Providers Payer Name Payer Address Payer Phone Subscriber Number Group Number Insured Name Patient Relationship to Insured Coverage Start Date Coverage End Date Medicaid of [place] [address] [place] [id number] Joaquin Crenshaw Self - patient is the insured
--- OUTSIDE RECORDS SUMMARY | 2025-04-14 11:40 | XMS_ITS | Encounter Summary ---
Author Organization [facility] Address [address] [place] [address] Phone Care Team Providers Care Siebel Crm Developer Name Role Phone Ivone Brown Primary Care Provider [phone] Reason for Visit * Reason Comments Medication Refill Encounter Details Date Type Department Care Team (Late st Contact Info) Description 03/06/2023 Refill [facility] [address] [address] Shannon Nunn MD [address] [place], [place] [phone] Medication Refill Social History Tobacco Use Types [...] documented as of this encounter Care Teams Siebel Crm Developer Relationship Specialty Start Date End Date Ivone Brown PA [address] [place] [address] PCP - General Physician Associate Program Manager 08/04/24 documented as of this encounter
--- OUTSIDE RECORDS SUMMARY | 2025-04-14 11:40 | XMS_ITS | Encounter Summary ---
Author Organization [facility] Home [facility] Address [address] [place] [address] Care Team Providers Care Medical Historian Name Role Phone Ivone Brown Primary Care Provider [phone] Encounter Details Date Type Department Care Team (Late st Contact Info) Description 08/23/2020 Scanned Document [facility] Rheumatology [address] [place], [place] [phone] Rigoberto Bautista MD [address] [place], [place] [address] [place] [address] Social History Tobacco Use Types [...] documented as of this encounter Care Teams Medical Historian Relationship Specialty Start Date End Date Ivone Brown PA [address] [place] [phone] PCP - General Physician Clam Sorter 08/04/24 documented as of this encounter
--- OUTSIDE RECORDS SUMMARY | 2025-04-14 11:40 | XMS_ITS | Encounter Summary ---
Author Organization [facility] Address [address] [place] [address] Care Team Providers Care Car Scrubber Name Role Phone Ivone Brown Primary Care Provider [phone] Reason for Visit * Reason Comments Medication Refill Encounter Details Date Type Department Care Team (Late st Contact Info) Description 03/03/2022 Refill [facility] [place] [address] [address] Perla Gomez PA [address] [place] [address] Medication Refill Social History Tobacco Use [...] documented as of this encounter Care Teams Car Scrubber Relationship Specialty Start Date End Date Ivone Brown PA [address] [place] [address] PCP - General Physician Public Works Inspector 08/04/24 documented as of this encounter
--- OUTSIDE RECORDS SUMMARY | 2025-04-14 11:40 | XMS_ITS | Encounter Summary ---
Author Organization [facility] Address [address] [place] [address] Phone Care Team Providers Care Anvil Worker Name Role Phone Ivone Brown Primary Care Provider Encounter Details Date Type Department Care Team (Late st Contact Info) Description 08/05/2024 Documentation [facility] [address] [place] [address] Edna Downs LMSW Social History Tobacco Use [...] documented as of this encounter Care Teams Anvil Worker Relationship Specialty Start Date End Date Ivone Brown PA [address] [place] [address] PCP - General Physician Senior Manufacturing Test Engineer 08/04/24 documented as of this encounter
--- OUTSIDE RECORDS SUMMARY | 2025-04-14 11:40 | XMS_ITS | Clinical Summary ---
Author Organization [address] Address [address] [place] [address] Phone Care Team Providers Care Sand Plant Attendant Name Role Phone Ivone Brown Primary Care Provider [phone] Allergies Active Allergy Reactions Criticality Noted Date Comments Asa-Calcium Kxkg-Prg-Wdwbajmp Shortness Of Breath High 01/14/2019 Aspirin 01/17/2019 [...] your living situation today? I have a [facility] place to live 08/04/2024 Housing Stability [...] cancer screening 11/02/1999 Breast cancer screening 2018 Influenza vaccine 01/09/2025 Covid-19 vaccine series ( season) 2025 Lipid disorder screening 01/24/2026 01/24/2021 Diabetes screening [...] 136 - 144 mmol/L 03/27/2024 10:00 AM [facility] Potassium 3.9 3.3 - 5.3 mmol/L 03/27/2024 10:00 AM T [facility] Chloride 106 98 - 107 mmol/L 03/27/2024 10:00 AM T [facility] CO2 28 20 - 30 mmol/L 03/27/2024 10:00 AM [facility] Anion Gap 6(L) 7 - 17 03/27/2024 10:00 AM [facility] Glucose 88 70 - 100 mg/dL 03/27/2024 10:00 AM [facility] BUN 15 6 - 20 mg/dL 03/27/2024 10:00 AM [facility] Creatinine 0.67 0.40 - 1.30 mg/dL 03/27/2024 10:00 AM [facility] Calcium 8.8 8.8 - 10.2 mg/dL 03/27/2024 10:00 AM [facility] BUN/Creatinine Ratio 22.4 8.0 - 23.0 03/27/2024 10:00 AM [facility] Total Protein 6.6 5.9 - 8.3 g/dL 024 10:00 AM [facility] Comment:As of 2023, th e reference interval for Total Protein has been changed from (6.6 to 8.7 g/dL) to (5.9 to 8.3 g/dL). Albumin 3.5(L) 3.6 - 5.1 g/dL 03/27/2024 10:00 AM [facility] Comment:As of 2023, th e reference interval for Albumin has been changed from (3.6 to 4.9 g/dL) to (3.6 to 5.1 g/dL). Total Bilirubin 0.4 <=1.2 mg/dL 03/27/20 24 10:00 AM [facility] Alkaline Phosphatase 67 9 - 122 U/L 03/27/2024 10:00 AM [facility] Alanine Aminotransferase (ALT) 16 10 - 35 U/L 03/27/2024 10:00 AM [facility] Comment:Calcium dobesilate c an cause artificially low ALT results at therapeutic concentrations Aspartate Aminotransferase (AST) 20 10 - 35 U/L 03/27/2024 10:00 AM [facility] Globulin 3.1 2.0 - 3.9 g/dL 03/27/2024 10:00 AM [facility] Comment:As of 2023, th e reference interval for Globulin has been changed from (2.3 to 3.5 g/dL) to (2.0 to 3.9 g/dL). A/G Ratio 1.1 1.0 - 2.2 03/27/2024 10:00 AM [facility] AST/ALT Ratio 1.3 Reference Range Not Established 03/27/2024 10:00 AM [facility] eGFR (Creatinine) >60 >=60 mL/min/1.73m2 03/27/2024 10:00 AM EDT [facility] Comment: [facility] utilizes CKD-EPI Creatinine 2020 to report eGFR. Values < 60 mL/min/1.73 m2 may indicate CKD if present for more than three months AND creatinine is at steady state. The eGFR provides a rough estimate of kidney function. For further guidance, please refer to the CKD: Adult Primer Assembler Signature pathway. Blood Venipuncture / Unknown 03/27/2024 9:23 AM EDT 03/27/2024 9:33 AM EDT us Breana Estrada MD LAB BLOOD ORDERABLES Fin al Result [address] [phone] * Colonoscopy (02/22/2021 7:24 AM EDT) Colonoscopy Endoscopy Patient Name: Joaquin De León Procedure Date: 02/22/2021 7:24 AM Date of : 1980 Age: 40 Gender: Female Admit Type: Outpatient [facility] #: [id number] Note Status: Finalized Attending MD: Radha Mckeon [...] oxygen saturations were monitored continuously. The [id number] was introduced through the anus and advanced to the cecum, identified by appendiceal orifice and ileocecal valve. The colonoscopy was performed without difficulty. The patient tolerated the procedure well. The quality of the bowel preparation was evaluated using the BBPS ([facility] Bowel Preparation Scale) with scores of: Right [...] pathology results. Procedure Code(s): --- Professional --- 82804, Colonoscopy, flexible; with removal of tumor(s), polyp(s), or other lesion(s) by snare technique Diagnosis Code(s): --- Professional --- Z80.0, Family history of malignant neoplasm of digestive organs K63.5, Polyp of colon K64.8, Other hemorrhoids K57.30, Diverticulosis of large intestine without perforation or abscess without bleeding CPT copyright 2020 [employer]. All rights reserved. The codes documented in this report are preliminary and upon electrophysiology technician review may be revised to meet current compliance requirements. Attending Participation: I was present and participated during the entire procedure, including non-carrasquillo portions. ___ Radha Mckeon MD 02/22/2021 1:44:31 PM This report has been signed electronically. Number of Addenda: 0 Note Initiated On: 02/22/2021 7:24 AM Estimated Blood Loss: Estimated blood loss was minimal. Scope In: Scope Out: [facility] 02/22/2021 7:24 AM EDT us Shannon Nunn MD GI PROCEDURE ORDERABLES Final Result [facility] * Cholesterol, total (01/24/2021 10:51 AM EDT) Cholesterol, Total 147 <200 mg/dL [facility] Blood 01/24/2021 10:5 1 AM EDT 01/24/2021 10:52 AM EDT Narrative [facility] - 01/29/2021 11:40 AM EDT FASTING:YES FASTING: YES Resulting Agency Comment Performing Lab: Site ID: [id number] Name: [facility] Address: [address] [place] [address], [place] [address] Director: Bianca Senior M.D. us Zaheer Mcdaniel MD MPH LAB BLOOD ORDERABLES Final Result Performing Organization Address City[facility] Co de Phone Number [facility] [address] [place] [address] from Last 3 Months or Most Recently Relevant to Health Maintenance Insurance MEDICAID [place] Advance Directives * Full ACLS (Latest Code Status on File) Date Activated Date Inactivated Comments 01/17/2022 6:12 PM 01/20/2022 2:42 PM Care Teams Sand Plant Attendant Relationship Specialty Start Date End Date Ivone Brown PA [address] [place] [address] PCP - General Physician Photo Graphics Librarian 08/04/24
--- OUTSIDE RECORDS SUMMARY | 2025-04-14 11:40 | XMS_ITS | Encounter Summary ---
Author Organization [facility] [employer] [facility] and [facility] Address [address] [place] [phone] Care Team Providers Care Camera Machinist Name Role Phone Ivone Brown Primary Care Provider [phone] Encounter Details Date Type Department Care Team (Late st Contact Info) Description 12/07/2020 Scanned Document [facility] at [address] [place] [address] Miguel Angel, RN Social History Tobacco Use [...] documented as of this encounter Care Teams Camera Machinist Relationship Specialty Start Date End Date Ivone Brown PA [address] [place] [phone] PCP - General Physician Steam Trap Worker 08/04/24 documented as of this encounter
--- OUTSIDE RECORDS SUMMARY | 2025-04-14 11:40 | XMS_ITS | Encounter Summary ---
Author Organization [facility] [employer] [facility] and [facility] Address [address] [place] [address] Care Team Providers Care Real Estate Branch Manager Name Role Phone Ivone Brown Primary Care Provider [phone] Reason for Visit * Reason Onset Date Comments Medication Refill 07/10/2023 Encounter Details Date Type Department Care Team (Late st Contact Info) Description 07/10/2023 Refill [facility] at [address] [place], [place] [address] Zaheer Mcdaniel MD MPH [address] [place] [address] Medication Refill Social History Tobacco [...] of this encounter Care Teams Real Estate Branch Manager Relationship Specialty Start Date End Date Ivone Brown PA [address] [place] [address] PCP - General Physician Automatic Punch Press Operator 08/04/24 documented as of this encounter
--- OUTSIDE RECORDS SUMMARY | 2025-04-14 11:40 | XMS_ITS | Encounter Summary ---
Author Organization [facility] Address [address] [place] [address] Phone Care Team Providers Care Environmental Sampling Technician Name Role Phone Ivone Brown Primary Care Provider [phone] Reason for Visit * Reason Comments Medication Refill Encounter Details Date Type Department Care Team (Late st Contact Info) Description 02/13/2023 Refill [facility] [address] [address] Shannon Nunn MD [address] [place], [place] [phone] Medication Refill Social History Tobacco Use Types [...] documented as of this encounter Care Teams Environmental Sampling Technician Relationship Specialty Start Date End Date Ivone Brown PA [address] [place] [address] PCP - General Physician Presetter Operator 08/04/24 documented as of this encounter
--- OUTSIDE RECORDS SUMMARY | 2025-04-14 11:40 | XMS_ITS | Encounter Summary ---
Author Organization [facility] [employer] System and [facility] Address [address] [place] [address] Care Team Providers Care Director Of Advertising Sales Name Role Phone Ivone Brown Primary Care Provider [phone] Encounter Details Date Type Department Care Team (Late st Contact Info) Description 10/04/2020 Scanned Document [facility] at [address] [place], [place] [address] Zaheer Mcdaniel MD MPH [address] [place] [address] Social History Tobacco Use Types [...] documented as of this encounter Care Teams Director Of Advertising Sales Relationship Specialty Start Date End Date Ivone Brown PA [address] [place] [address] PCP - General Physician Sound Designer 08/04/24 documented as of this encounter
== END 2025-04-14 14:30 | disposition home or self-care (01) ==
LOC: HO.ENCR 10:01
PROVIDERS: PCP Student in an Organized Health Care Education/Training Program; Visit Provider Dietitian, Registered
DX: E66.9 Obesity, unspecified (principal)

== ENCOUNTER → 2025-04-14 10:01 | Outpatient (BNVA) | payer OTHER, SELFPAY | PROVIDERS: PCP Student in an Organized Health Care Education/Training Program; Visit Provider Dietitian, Registered | DX: E66.9 Obesity, unspecified (principal) | CPT/HCPCS: 97803 ==

== ENCOUNTER 2025-04-23 08:24 | Outpatient (AMB) | payer OTHER, SELFPAY ==
--- OUTSIDE RECORDS SUMMARY | 2025-04-23 08:44 | XMS_ITS | Encounter Summary ---
Author Organization [facility] Address [address] [place] [address] Phone Care Team Providers Care Bolt Man Name Role Phone Ivone Brown Primary Care Provider [phone] Reason for Visit * Reason Comments Medication Refill Encounter Details Date Type Department Care Team (Late st Contact Info) Description 03/06/2023 Refill [facility] [address] [address] Shannon Nunn MD [address] [place], [place] [phone] Medication Refill Social History Tobacco Use Types [...] documented as of this encounter Care Teams Bolt Man Relationship Specialty Start Date End Date Ivone Brown PA [address] [place] [address] PCP - General Physician Instrument Sterilizer 08/04/24 documented as of this encounter
--- OUTSIDE RECORDS SUMMARY | 2025-04-23 08:44 | XMS_ITS | Encounter Summary ---
Author Organization [facility] ou and Home Health Address [address] [place] [address] Care Team Providers Care Slip Operator Name Role Phone Ivone Brown Primary Care Provider [phone] Reason for Visit * Reason Comments Medication Refill Encounter Details Date Type Department Care Team (Late st Contact Info) Description 01/06/2022 Refill [facility] [place] [address] [address] Perla Gomez PA [address] [place] [phone] Medication Refill Social History Tobacco Use [...] documented as of this encounter Care Teams Slip Operator Relationship Specialty Start Date End Date Ivone Brown PA [address] [place] [address] PCP - General Physician Higher Level Teaching Assistant 08/04/24 documented as of this encounter
--- OUTSIDE RECORDS SUMMARY | 2025-04-23 08:44 | XMS_ITS | Encounter Summary ---
Author Organization [facility] and [facility] Address [address] [place] [phone] Care Team Providers Care Hydraulic Operator Name Role Phone Ivone Brown Primary Care Provider [phone] Reason for Visit * Reason Comments Medication Refill Encounter Details Date Type Department Care Team (Late st Contact Info) Description 12/02/2021 Refill [facility] [address] [address] Sanjuanita Sharp PA [address] [place] [address] Medication Refill Social History Tobacco [...] documented as of this encounter Care Teams Hydraulic Operator Relationship Specialty Start Date End Date Ivone Brown PA [address] [place] [address] PCP - General Physician Sas Administrator 08/04/24 documented as of this encounter
--- OUTSIDE RECORDS SUMMARY | 2025-04-23 08:44 | XMS_ITS | Encounter Summary ---
Author Organization [facility] [employer] [facility] and [facility] Address [address] [place] [address] Care Team Providers Care Gum Machine Operator Name Role Phone Ivone Brown Primary Care Provider [phone] Reason for Visit * Reason Comments Medication Refill Encounter Details Date Type Department Care Team (Late st Contact Info) Description 09/26/2021 Refill [facility] [address] [address] Sanjuanita Sharp PA [address] [place] [address] Medication Refill Social History Tobacco [...] documented as of this encounter Care Teams Gum Machine Operator Relationship Specialty Start Date End Date Ivone Brown PA [address] [place] [address] PCP - General Physician Fitness Management Director 08/04/24 documented as of this encounter
--- OUTSIDE RECORDS SUMMARY | 2025-04-23 08:44 | XMS_ITS | Encounter Summary ---
Author Organization [facility] Address [address] [place] [address] Phone Care Team Providers Care Financial Services Officer Name Role Phone Ivone Brown Primary Care Provider [phone] Reason for Visit * Reason Comments Medication Refill Encounter Details Date Type Department Care Team (Late st Contact Info) Description 01/19/2022 Refill [facility] [address] [address] Shannon Nunn MD [address] [place], [place] [phone] Medication Refill Social History Tobacco Use Types [...] documented as of this encounter Care Teams Financial Services Officer Relationship Specialty Start Date End Date Ivone Brown PA [address] [place] [address] PCP - General Physician Lavatory Attendant 08/04/24 documented as of this encounter
--- OUTSIDE RECORDS SUMMARY | 2025-04-23 08:44 | XMS_ITS | Encounter Summary ---
Author Organization [facility] Address [address] [place] [address] Phone Care Team Providers Care Materials Inspector Name Role Phone Ivone Brown Primary Care Provider Encounter Details Date Type Department Care Team (Late st Contact Info) Description 08/05/2024 Documentation [facility] [address] [place] [address] Edna Downs LMSW Social History Tobacco Use [...] documented as of this encounter Care Teams Materials Inspector Relationship Specialty Start Date End Date Ivone Brown PA [address] [place] [address] PCP - General Physician Men'S Swim Coach 08/04/24 documented as of this encounter
--- OUTSIDE RECORDS SUMMARY | 2025-04-23 08:44 | XMS_ITS | Encounter Summary ---
Author Organization [facility] Address [address] [place] [address] Care Team Providers Care Solutions Analyst Name Role Phone Ivone Brown Primary Care Provider Reason for Visit * Reason Comments Medication Refill Encounter Details Date Type Department Care Team (Late st Contact Info) Description 12/25/2021 Refill [facility] [place] [address] [address] Perla Gomez PA [address] [place] [address] Medication Refill Social History Tobacco Use [...] documented as of this encounter Care Teams Solutions Analyst Relationship Specialty Start Date End Date Ivone Brown PA [address] [place] [address] PCP - General Physician Tosser 08/04/24 documented as of this encounter
--- OUTSIDE RECORDS SUMMARY | 2025-04-23 08:44 | XMS_ITS | Encounter Summary ---
Author Organization [facility] [employer] and [facility] Address [address] [place] [address] Care Team Providers Care Shank Burnisher Name Role Phone Ivone Brown Primary Care Provider [phone] Reason for Visit * Reason Comments Medication Refill Encounter Details Date Type Department Care Team (Late st Contact Info) Description 11/22/2021 Refill [facility] [address] [address] Sanjuanita Sharp PA [address] [place] [address] Medication Refill Social History Tobacco [...] documented as of this encounter Care Teams Shank Burnisher Relationship Specialty Start Date End Date Ivone Brown PA [address] [place] [address] PCP - General Physician Mixer Helper 08/04/24 documented as of this encounter
--- OUTSIDE RECORDS SUMMARY | 2025-04-23 08:44 | XMS_ITS | Encounter Summary ---
Author Organization [facility] [employer] and [facility] Address [address] [place] [address] Care Team Providers Care Breast Splitter Name Role Phone Ivone Brown Primary Care Provider Encounter Details Date Type Department Care Team (Latest Contact Info) Description 01/05/2022 Transcribed Orders [place] [address] Zaheer Mcdaniel MD MPH [address] [facility] [address] [place] [address] Severe obesity (HC Code) (HC [...] 8:42 AM EDT) Heart Rate 66 bpm [facility] ECG QRS Duration 90 ms [facility] ECG Q-T Interval 412 ms [facility] ECG QTC Calculation(Be zet) 431 ms [facility] ECG P [place] 41 deg [facility] ECG R [place] 70 deg [facility] ECG T [place] 31 deg [facility] ECG P-R Interval 150 msec [facility] ECG SEVERITY Normal ECG severity [facility] ECG Comment::Normal sinus rhythm :Normal ECG:Electronically Signed On 01-05-2022 18:52:20 EDT by AR METZ MD 01/05/2022 8:42 AM EDT us Zaheer Mcdaniel MD MPH ECG ORDERABLES Final Resul t [facility] ECG documented in this encounter Visit [...] documented as of this encounter Care Teams Breast Splitter Relationship Specialty Start Date End Date Ivone Brown PA [address] [place] [address] PCP - General Physician Clinical Veterinarian 08/04/24 documented as of this encounter
--- OUTSIDE RECORDS SUMMARY | 2025-04-23 08:44 | XMS_ITS | Clinical Summary ---
Author Organization [address] Address [address] [place] [address] Phone Care Team Providers Care Software Project Lead Name Role Phone Ivone Brown Primary Care Provider [phone] Allergies Active Allergy Reactions Criticality Noted Date Comments Asa-Calcium Tpks-Yet-Ktcofdts Shortness Of Breath High 01/14/2019 Aspirin 01/17/2019 [...] your living situation today? [facility] 08/04/2024 Housing Stability [...] 136 - 144 mmol/L 03/27/2024 10:00 [address] [facility] Potassium 3.9 3.3 - 5.3 mmol/L 03/27/2024 10:00 AM T [facility] Chloride 106 98 - 107 mmol/L 03/27/2024 10:00 AM T [facility] CO2 28 20 - 30 mmol/L 03/27/2024 10:00 AM [facility] Anion Gap 6(L) 7 - 17 03/27/2024 10:00 AM [facility] Glucose 88 70 - 100 mg/dL 03/27/2024 10:00 AM [facility] BUN 15 6 - 20 mg/dL 03/27/2024 10:00 AM [facility] Creatinine 0.67 0.40 - 1.30 mg/dL 03/27/2024 10:00 AM [facility] Calcium 8.8 8.8 - 10.2 mg/dL 03/27/2024 10:00 AM [facility] BUN/Creatinine Ratio 22.4 8.0 - 23.0 03/27/2024 10:00 AM [facility] Total Protein 6.6 5.9 - 8.3 g/dL 024 10:00 AM [facility] Comment:As of 2023, th e reference interval for Total Protein has been changed from (6.6 to 8.7 g/dL) to (5.9 to 8.3 g/dL). Albumin 3.5(L) 3.6 - 5.1 g/dL 03/27/2024 10:00 AM [facility] Comment:As of 2023, th e reference interval for Albumin has been changed from (3.6 to 4.9 g/dL) to (3.6 to 5.1 g/dL). Total Bilirubin 0.4 <=1.2 mg/dL 03/27/20 24 10:00 AM [facility] Alkaline Phosphatase 67 9 - 122 U/L 03/27/2024 10:00 AM [facility] Alanine Aminotransferase (ALT) 16 10 - 35 U/L 03/27/2024 10:00 AM [facility] Comment:Calcium dobesilate c an cause artificially low ALT results at therapeutic concentrations Aspartate Aminotransferase (AST) 20 10 - 35 U/L 03/27/2024 10:00 AM [facility] Globulin 3.1 2.0 - 3.9 g/dL 03/27/2024 10:00 AM [facility] Comment:As of 2023, th e reference interval for Globulin has been changed from (2.3 to 3.5 g/dL) to (2.0 to 3.9 g/dL). A/G Ratio 1.1 1.0 - 2.2 03/27/2024 10:00 AM [facility] AST/ALT Ratio 1.3 Reference Range Not Established 03/27/2024 10:00 AM [facility] eGFR (Creatinine) >60 >=60 mL/min/1.73m2 03/27/2024 10:00 AM EDT [facility] Comment: [facility] utilizes CKD-EPI Creatinine 2020 to report eGFR. Values < 60 mL/min/1.73 m2 may indicate CKD if present for more than three months AND creatinine is at steady state. The eGFR provides a rough estimate of kidney function. For further guidance, please refer to the CKD: Adult Plaster Block Layer Signature pathway. Blood Venipuncture / Unknown 03/27/2024 9:23 AM EDT 03/27/2024 9:33 AM EDT us Breana Estrada MD LAB BLOOD ORDERABLES Fin al Result [address] [phone] * Colonoscopy (02/22/2021 7:24 AM EDT) Colonoscopy Endoscopy Patient Name: Joaquin De León Procedure Date: 02/22/2021 7:24 AM Date of : 1980 Age: 40 Gender: Female Admit Type: Outpatient [facility] #: [id number] Note Status: Finalized Attending MD: Radha Mckeon [...] oxygen saturations were monitored continuously. The [id number] was introduced through the anus and advanced to the cecum, identified by appendiceal orifice and ileocecal valve. The colonoscopy was performed without difficulty. The patient tolerated the procedure well. The quality of the bowel preparation was evaluated using the BBPS (Sheldon Bowel Preparation Scale) with scores of: Right [...] pathology results. Procedure Code(s): --- Professional --- 62971, Colonoscopy, flexible; with removal of tumor(s), polyp(s), or other lesion(s) by snare technique Diagnosis Code(s): --- Professional --- Z80.0, Family history of malignant neoplasm of digestive organs K63.5, Polyp of colon K64.8, Other hemorrhoids K57.30, Diverticulosis of large intestine without perforation or abscess without bleeding CPT copyright 2020 [employer]. All rights reserved. The codes documented in this report are preliminary and upon carbide die maker review may be revised to meet current compliance requirements. Attending Participation: I was present and participated during the entire procedure, including non-carrasquillo portions. ___ Radha Mckeon MD 02/22/2021 1:44:31 PM This report has been signed electronically. Number of Addenda: 0 Note Initiated On: 02/22/2021 7:24 AM Estimated Blood Loss: Estimated blood loss was minimal. Scope In: Scope Out: [facility] [employer] 02/22/2021 7:24 AM EDT us Shanonn Nunn MD GI PROCEDURE ORDERABLES Final Result [facility] [employer] * Cholesterol, total (01/24/2021 10:51 AM EDT) Cholesterol, Total 147 <200 mg/dL [facility] Blood 01/24/2021 10:5 1 AM EDT 01/24/2021 10:52 AM EDT Narrative [facility] - 01/29/2021 11:40 AM EDT FASTING:YES FASTING: YES Resulting Agency Comment Performing Lab: Site ID: [id number] Name: [facility] Address: [address] [place] [address], [place] [address] Director: Bianca Senior M.D. us Zaheer Mcdaniel MD MPH LAB BLOOD ORDERABLES Final Result Performing Organization Address City/[facility] Co de Phone Number [facility] [address] [place] [address] from Last 3 Months or Most Recently Relevant to Health Maintenance Insurance [place] Advance Directives * Full ACLS (Latest Code Status on File) Date Activated Date Inactivated Comments 01/17/2022 6:12 PM 01/20/2022 2:42 PM Care Teams Software Project Lead Relationship Specialty Start Date End Date Ivone Brown PA [address] [place] [address] PCP - General Physician Senior Javascript Developer 08/04/24
--- OUTSIDE RECORDS SUMMARY | 2025-04-23 08:44 | XMS_ITS | Encounter Summary ---
Author Organization [facility] Address [address] [place] [address] Care Team Providers Care Retail Parts Pro Name Role Phone Ivone Brown Primary Care Provider Encounter Details Date Type Department Care Team (Late st Contact Info) Description 08/23/2020 Scanned Document [facility] PM Rheumatology [address] [place], [place] [id number] Rigoberto Bautista MD [address] [place], [place] [phone] [place] [address] Social History Tobacco Use Types [...] documented as of this encounter Care Teams Retail Parts Pro Relationship Specialty Start Date End Date Ivone Brown PA [address] [place] [phone] PCP - General Physician Ec Teacher 08/04/24 documented as of this encounter
--- OUTSIDE RECORDS SUMMARY | 2025-04-23 08:44 | XMS_ITS | Encounter Summary ---
Author Organization [facility] [employer] [facility] and [facility] Address [address] [place] [address] Care Team Providers Care Cake Puncher Name Role Phone Ivone Brown Primary Care Provider [phone] Encounter Details Date Type Department Care Team (Late st Contact Info) Description 08/23/2020 Scanned Document [facility] [address] [facility] [address] [place] [address] Perla Gomez PA [address] [place] [address] Social History Tobacco Use Types [...] documented as of this encounter Care Teams Cake Puncher Relationship Specialty Start Date End Date Ivone Brown PA [address] [place] [phone] PCP - General Physician [employer] Fruit Crop Farmer 08/04/24 documented as of this encounter
--- OUTSIDE RECORDS SUMMARY | 2025-04-23 08:44 | XMS_ITS | Encounter Summary ---
Author Organization [facility] [employer] and [facility] Address [address] [place] [address] Care Team Providers Care Law Enforcement Officer Name Role Phone Ivone Brown Primary Care Provider [phone] Reason for Visit * Reason Onset Date Comments Medication Refill 07/10/2023 Encounter Details Date Type Department Care Team (Late st Contact Info) Description 07/10/2023 Refill [facility] at [address] [place], [place] [address] Zaheer Mcdaniel MD MPH [address] [place] [address] Medication Refill Social History Tobacco [...] documented as of this encounter Care Teams Law Enforcement Officer Relationship Specialty Start Date End Date Ivone Brown PA [address] [place] [address] PCP - General Physician Supervisor Stone 08/04/24 documented as of this encounter
--- OUTSIDE RECORDS SUMMARY | 2025-04-23 08:44 | XMS_ITS | Encounter Summary ---
Author Organization [facility] [employer] [facility] and [facility] Address [address] [place] [address] Care Team Providers Care Muck Boss Name Role Phone Ivone Brown Primary Care Provider [phone] Reason for Visit * Reason Comments Medication Refill Encounter Details Date Type Department Care Team (Late st Contact Info) Description 08/20/2021 Refill [facility] [address] [address] Sanjuanita Sharp PA [address] [place] [address] Medication Refill Social History Tobacco [...] documented as of this encounter Care Teams Muck Boss Relationship Specialty Start Date End Date Ivone Brown PA [address] [place] [address] PCP - General Physician Site Auditor 08/04/24 documented as of this encounter
--- OUTSIDE RECORDS SUMMARY | 2025-04-23 08:44 | XMS_ITS | Patient Health Record ---
Author Organization [facility], Address [address] [place] [address] Support Name Relationship Address Phone Joaquin Crenshaw Guarantor Unknown Reason For Referral No Information Problems No Known Problems Plan Of Treatment No Information Insurance Providers Payer Name Payer Address Payer Phone Subscriber Number Group Number Insured Name Patient Relationship to Insured Coverage Start Date Coverage End Date Medicaid of [place] [address] [place] [address] [id number] Joaquin Crenshaw Self - patient is the insured
--- OUTSIDE RECORDS SUMMARY | 2025-04-23 08:44 | XMS_ITS | Encounter Summary ---
Author Organization [facility] Address [address] [place] [address] Phone Care Team Providers Care Dietitian Teaching Name Role Phone Ivone Brown Primary Care Provider [phone] Reason for Visit * Reason Comments Medication Refill Encounter Details Date Type Department Care Team (Late st Contact Info) Description 02/13/2023 Refill [facility] [address] [address] Shannon Nunn MD [address] [place], [place] [phone] Medication Refill Social History Tobacco Use Types [...] documented as of this encounter Care Teams Dietitian Teaching Relationship Specialty Start Date End Date Ivone Brown PA [address] [place] [address] PCP - General Physician Rivet Tosser 08/04/24 documented as of this encounter
--- OUTSIDE RECORDS SUMMARY | 2025-04-23 08:44 | XMS_ITS | Encounter Summary ---
Author Organization [facility] Address [address] [place] [address] Phone Care Team Providers Care Pipe Fitter Maintenance Name Role Phone Ivone Brown Primary Care Provider [phone] Reason for Visit * Reason Comments Medication Refill Encounter Details Date Type Department Care Team (Late st Contact Info) Description 03/03/2022 Refill [facility] [address] [address] Shannon Nunn MD [address] [place], [place] [phone] Medication Refill Social History Tobacco Use Types [...] documented as of this encounter Care Teams Pipe Fitter Maintenance Relationship Specialty Start Date End Date Ivone Brown PA [address] [place] [phone] PCP - General Physician Chemical Equipment Sales Engineer 08/04/24 documented as of this encounter
--- OUTSIDE RECORDS SUMMARY | 2025-04-23 08:44 | XMS_ITS | Encounter Summary ---
Author Organization [facility] Address [address] [place] [address] Care Team Providers Care Flatwork Tier Name Role Phone Ivone Brown Primary Care Provider [phone] Reason for Visit * Reason Comments Medication Refill Encounter Details Date Type Department Care Team (Late st Contact Info) Description 01/19/2022 Refill [facility] [place] [address] [address] Perla Gomez PA [address] [place] [phone] Medication Refill Social History Tobacco Use [...] documented as of this encounter Care Teams Flatwork Tier Relationship Specialty Start Date End Date Ivone Brown PA [address] [place] [address] PCP - General Physician Felt Finishing Supervisor 08/04/24 documented as of this encounter
--- OUTSIDE RECORDS SUMMARY | 2025-04-23 08:44 | XMS_ITS | Encounter Summary ---
Author Organization [facility] Address [address] [place] [address] Phone Care Team Providers Care Desizing Pad Operator Name Role Phone Ivone Brown Primary Care Provider [phone] Reason for Visit * Reason Comments Medication Refill Encounter Details Date Type Department Care Team (Late st Contact Info) Description 12/18/2022 Refill [facility] [address] [address] Shannon Nunn MD [address] [place], [place] [phone] Medication Refill Social History Tobacco Use Types [...] documented as of this encounter Care Teams Desizing Pad Operator Relationship Specialty Start Date End Date Ivone Brown PA [address] [place] [address] PCP - General Physician Irrigation Service Technician 08/04/24 documented as of this encounter
--- OUTSIDE RECORDS SUMMARY | 2025-04-23 08:44 | XMS_ITS | Encounter Summary ---
Author Organization [facility] [employer] and [facility] Address [address] [place] [address] Care Team Providers Care Recruitment Specialist Name Role Phone Ivone Brown Primary Care Provider Reason for Visit * Reason Comments Medication Refill Encounter Details Date Type Department Care Team (Late st Contact Info) Description 10/22/2021 Refill [facility] [address] [address] Sanjuanita Sharp PA [address] [place] [address] Medication Refill Social History Tobacco [...] documented as of this encounter Care Teams Recruitment Specialist Relationship Specialty Start Date End Date Ivone Brown PA [address] [place] [address] PCP - General Physician Dividing Machine Operator 08/04/24 documented as of this encounter
--- OUTSIDE RECORDS SUMMARY | 2025-04-23 08:44 | XMS_ITS | Encounter Summary ---
Author Organization [facility] Address [address] [place] [address] Care Team Providers Care Oracle Hrms Consultant Name Role Phone Ivone Brown Primary Care Provider [phone] Reason for Visit * Reason Comments Medication Refill Encounter Details Date Type Department Care Team (Late st Contact Info) Description 03/03/2022 Refill [facility] [place] [address] Perla Gomez PA [address] [place] [phone] Medication Refill Social History Tobacco Use [...] documented as of this encounter Care Teams Oracle Hrms Consultant Relationship Specialty Start Date End Date Ivone Brown PA [address] [place] [address] PCP - General Physician International Logistics Coordinator 08/04/24 documented as of this encounter
--- OUTSIDE RECORDS SUMMARY | 2025-04-23 08:45 | XMS_ITS | Encounter Summary ---
Author Organization [facility] [employer] [facility] and [facility] Address [address] [place] [address] Care Team Providers Care Heel Painter Name Role Phone Ivone Brown Primary Care Provider [phone] Encounter Details Date Type Department Care Team (Late st Contact Info) Description 10/04/2020 Scanned Document [facility] at [address] [place], [place] [address] Zaheer Mcdaniel MD MPH [address] [place] [address] Social History Tobacco Use Types [...] documented as of this encounter Care Teams Heel Painter Relationship Specialty Start Date End Date Ivone Brown PA [address] [place] [address] PCP - General Physician Financial Assistance Advisor 08/04/24 documented as of this encounter
--- OUTSIDE RECORDS SUMMARY | 2025-04-23 08:45 | XMS_ITS | Encounter Summary ---
Author Organization [facility] [employer] and [facility] Address [address] [place] [phone] Care Team Providers Care Microbiology Lab Technician Name Role Phone Ivone Brown Primary Care Provider [phone] Encounter Details Date Type Department Care Team (Late st Contact Info) Description 12/07/2020 Scanned Document [facility] at [address] [place] [address] Miguel Angel, RN Social History Tobacco Use [...] documented as of this encounter Care Teams Microbiology Lab Technician Relationship Specialty Start Date End Date Ivone Brown PA [address] [place] [phone] PCP - General Physician Ring Making Machine Operator 08/04/24 documented as of this encounter
--- NOTE | 2025-04-23 10:57 | MHC.OFFVISWM ---
VS Expanded 04/23/25 10:58 Height 5 ft 5.5 in Weight 233 lb 6 oz BMI 38.2 Body Fat % 38.4 Body Fat Mass 89.8 Fat Free Mass 143.8 Visceral Fat Rating 10 Body Water % 43.9 Body Water Mass 102.6 Basal Metabolic Rate/Score 1,977 Intake Visit Reasons: TV PEST CONTROL TECHNICIAN REVISION/MWL *[employer]* Desktop Support Specialist Required: Yes Desktop Support Specialist Services: Desktop Support Specialist Present Information Interpreted: clinical only Allergies Penicillins Allergy (Severe, Verified 04/23/25 11:01) Anaphylaxis shellfish derived (shellfish) Allergy (Severe, Verified 04/23/25 11:01) Anaphylaxis Medication List - Last Reconciled 04/23/25 by Len Crow MD ascorbic acid (vitamin C) 500 mg PO DAILY [blood pressure kit As directed] cholecalciferol (vitamin D3) 10 mcg PO DAILY cyanocobalamin (vitamin B-12) 1,000 mcg PO DAILY ferrous sulfate (iron) 325 mg PO DAILY omeprazole 20 mg PO DAILY HPI HPI TV PEST CONTROL TECHNICIAN REVISION/MWL *[employer]*: Details: Start time: 10.40am, End time: 11.40am ?I spent 55 minutes speaking with the patient on the phone plus an additional 5 minutes reviewing and updating records for a total of 60 minutes HPI Comments Details: Previous weight loss efforts: LSG 2021: pre-LSG weight: 350lbs, lowest: 190 lbs Wakes up: 4.30am, Sleeps: 8pm Breakfast: 8am (boiled egg, toast, smoothie) Lunch: 12pm (as dinner) Dinner: 4pm (chicken, beef, potatoes, rice) Snacks: 10am (cheese, ham, crackers), 4pm (same), 8pm (same) Exercise: none, has gym membership Beverages: Coffee: none, Tea: (8oz/d. plain), Soda: none, Juice: Crystal light, ETOH: none PFSH Medical History (Updated 04/23/25 @ 11:08 by Len Crow MD) Hyperlipidemia GERD (gastroesophageal reflux disease) BMI 38.0-38.9,adult Vitamin D insufficiency PTSD (post-traumatic stress disorder) Epigastric pain Severe obesity LUIS FERNANDO (obstructive sleep apnea) Depression Panic disorder Morbid obesity Abdominal pain Surgical History H/O colonoscopy S/P laparoscopic surgery H/O endoscopy Hx laparoscopic cholecystectomy Bariatric surgery status S/P gastric sleeve procedure Family History Father High cholesterol High triglycerides High blood pressure Stroke Mother Uterus cancer High blood pressure Glaucoma (increased eye pressure) Lupus (systemic lupus erythematosus) Social History Housing: House Alcohol intake: current Alcohol intake frequency: does not drink Patient Tobacco Use Status: Never used Tobacco service: No Current occupational status: employed Cognitive needs: No Hearing needs: No Vision needs: No Telehealth Telehealth Telehealth Platform: Telephone Location of provider rendering services: practice address Location of patient: address on file Patient Identification confirmed using: Name, : Yes Telehealth method: voice only Patient verbally consented to treatment: Yes Patient verbally consented to billing insurance company: Yes Patient informed of any privacy concerns related to visit: Yes Minutes spent on Phone/Video with Pt.: 60 Assessment & Plan Assessment & Plan (1) Obesity (BMI 30-39.9): Code(s): E66.9 - Obesity, unspecified Category: Medical Plan: 1. Nutritional counseling. Start with one CELEBRATE REBUILD protein (buy online with the link I gave you) shakes (ONE scoop in 8oz low fat unsweetened almond milk) at 6am-8am, 1 protein bar (CELEBRATE protein bars, buy at [facility], buy online with the link I gave you) ) at 9am-11am, another CELEBRATE REBUILD protein shake (ONE scoop in 8oz low fat unsweetened almond milk each) at 12pm-2pm, another Celebrate protein bar at 3pm-5pm, dinner at 6pm (6 forks of protein and 6 forks of salad/vegetables). So you do 2 protein shakes, 2 protein bars and one meal per day Meal to include lean meat (beef, fish, pork, turkey, chicken), or honduran yogurt, or egg whites, or beans with a salad with olive oil and fruits (berries, pears, apples, kiwi). Avoid salt, breads, potatoes, rice, pasta, desserts. 3. Each shake would be drunk slowly, like coffee in a period of 2 hours. 4. Cut each bar in 4 pieces and eat each piece in 30min ?to make each bar last 2 hours. 5. I emphasized the importance of measuring accurately the food portion and measure it when serving the food in plate 6. The meal portions include 6 full-size forks of meat and 6 full-size forks of salad. You always eat the meat portion but you can replace up to 3 forks for salad/vegetables with rice, potatoes or pasta, or a fruit ?if you like. The less you do it the better weight loss will be. 7. One full-size fork is what it can be scooped on the fork without falling aside and not what can be bit with the fork. Use regular forks like those you find in a typical restaurant. 8.? Please buy the body composition scale we discussed and send me weight measurements as soon as possible and then once a week. Always include your diet and exercise plan. 9. Start treadmill with an incline of 2.0 and speed of 3.0. Increase incline by 1 every 3 min to a max incline of 8.0, stay 3min at 8.0 and then return to 2.0 and repeat same steps until calorie goal is met. Goal is to burn 2000 calories per week on exercise, which means either 300 calories daily, or 400 calories 5 days per week, or 500 calories 4 days per week. 10. The best choice would be to purchase a stationary bike, elliptical or treadmill at home that can track calories. Let me know if you do so I can give you an exercise plan. 11. Goal is to lose at least 1.5-2lbs per week 12. Goal to lose at least 10% of your weight, which is about 23lbs. Minimum weight goal: 210lbs 13. Please follow the diet plan exactly without any change. If you don't like something about the plan or you feel hungry you need to communicate with me so I can help you revise the plan. You should not change the plan yourself 14. To be scheduled for EGD with Guzman to assess the sleeve's anatomy, the presence of diaphragmatic hernia and the GERD symptoms. The possibility of biopsies was discussed. Patient needs to avoid use of NSAIDs and aspirin for 1 week prior to EGD. You must be on liquids only the day before your endoscopy. Risks of perforation and bleeding was discussed with the patient. This will be an outpatient procedure with IV sedation.
[2025-04-23 10:58] VITALS: BMI 38.2
== END 2025-04-23 11:40 | disposition home or self-care (01) ==
LOC: HO.HBS 08:24
PROVIDERS: PCP Student in an Organized Health Care Education/Training Program; Visit Provider Surgery
DX: E66.9 Obesity, unspecified (principal); Z68.38 Body mass index [BMI] 38.0-38.9, adult
CPT/HCPCS: 98011

== ENCOUNTER 2025-04-28 09:35 | Inpatient (IN) | payer OTHER, SELFPAY ==
--- NOTE | ~2025-04-28 | CT_ITS ---
EXAMINATION: CT ABDOMEN AND PELVIS WITH CONTRAST CLINICAL INFORMATION: LLQ, flank pain, H/O javed sleeve R/O K stone, SBO COMPARISON: None available. TECHNIQUE: Multidetector volumetric images were obtained from the superior aspect of the liver through the pubic symphysis following administration 85 mL of Omnipaque 350 intravenous contrast. Sagittal and coronal reformatted images were obtained on the technologist's workstation. Oral contrast: No This CT examination was performed using dose optimization techniques as appropriate, variously including the following: *Automated exposure control *Adjustment of mA and/or kV according to patient size (this includes techniques or standardized protocols for targeted exams where dose is matched to indication/reason for exam; i.e. extremities or head) *Use of iterative reconstruction technique FINDINGS: LUNG BASES: The visualized lung bases are unremarkable. LIVER, GALLBLADDER, AND BILIARY TREE: The liver is normal in size, shape, and attenuation. No focal hepatic lesion or biliary ductal dilatation is present. There is a clip in the gallbladder fossa related to cholecystectomy. PANCREAS: Unremarkable. SPLEEN: Unremarkable. It measures 12.6 cm. ADRENAL GLANDS: There is a 10 mm left adrenal gland nodule measuring 30 Hounsfield units. Right adrenal gland is unremarkable. KIDNEYS AND URETERS: The kidneys are normal in size, shape, and attenuation. No hydronephrosis, hydroureter, or calculi seen. No perinephric stranding. BLADDER: Unremarkable. GASTROINTESTINAL TRACT: A few pseudodiverticula are present in the descending colon. There is bowel wall thickening and fat stranding adjacent to the inferior half of the descending colon. There is one pseudodiverticula that demonstrates high attenuation in this region. There is also trace fluid tracking along the left paracolic gutter. Postoperative changes are present related to gastric bypass surgery. There is a hiatal hernia containing a proximal portion of the gastric sleeve. ABDOMINAL WALL: There is a supraumbilical hernia passes through the linea alba. The hernia sac contains a short segment of small bowel and fat. There is no dilation of the bowel proximal to the herniation. The neck is 3.2 cm wide. The hernia sac measures 3.3 x 4.4 cm (CC by transverse). LYMPH NODES: Normal. VASCULAR: Unremarkable. PELVIC VISCERA: Unremarkable. OSSEOUS STRUCTURES: L5-S1 demonstrates moderate to severe disc space narrowing with endplate sclerosis and osteophytes. There is sclerosis and degenerative irregularity of the pubic symphysis joint. There is mild degenerative changes of both hip joints with osteophytes and minimal joint space narrowing. CT/CT abdomen pelvis w IV con IMPRESSION: Suspected acute diverticulitis, uncomplicated: There is bowel wall thickening which changes of diverticulosis in the lower half of the descending colon. There is also a small amount of free fluid and fat stranding. There is also a single high attenuating pseudodiverticulum along the posterior wall of the descending colon. Differential considerations for bowel wall thickening includes ischemia, inflammatory bowel disease, and neoplasm. There is a supraumbilical hernia containing a short segment of small bowel without obstruction. There are postoperative changes related to gastric sleeve surgery. There is a sliding hiatal hernia involving the proximal end of the gastric sleeve. There is a 10 mm indeterminate left adrenal gland nodule. Recommend 1-year followup adrenal protocol CT. Also, if clinically indicated, consider concurrent laboratory evaluation for possible pheochromocytoma. L5-S1: Moderate degenerative disc disease and facet osteoarthritis. Fleischner guidelines were followed. Electronically signed by: Stevie Conn MD 04/28/2025 12:33 PM EST
--- NOTE | ~2025-04-28 | XR_ITS ---
EXAMINATION: XR CHEST CLINICAL INFORMATION: Cough, left flank, LLQ pain, R/O pneumonia COMPARISON: None available. TECHNIQUE: PA and lateral views FINDINGS: No consolidation, pleural effusion or pneumothorax. No hyperinflation. Cardiomediastinal silhouette size is normal. Multilevel thoracolumbar spondylosis. 3 mm calcification right upper abdomen, possibly nephrolithiasis.. XR/XR chest 2V IMPRESSION: No acute airspace disease. Multilevel spondylosis, thoracolumbar spine. Electronically signed by: Kev Greco MD 04/28/2025 11:52 AM EST
[2025-04-28 09:51] VITALS: BP 131/60; PULSE 100; RESP 18; TEMP 36.6; O2SAT 100; BMI 40.3
--- NOTE | 2025-04-28 10:08 | ED_ITS ---
HPI - General Adult General Chief complaint: General Medical Stated complaint: Fever Body Aches Time Seen by Provider: 04/28/25 10:45 Source: patient and family (, Roby) Mode of arrival: ambulatory Limitations: language barrier ( patient's 1st language is Malagasy, speaks some [place] Citizen, [facility] [place] used) History of Present Illness ED Provider: Dr. Dimitrios Ho HPI narrative: 44-year-old female with a history of hyperlipidemia, GERD, PTSD, depression, gastric sleeve surgery [place] [facility] [place], cholecystectomy who presents emergency department for evaluation of 4 days of constant, left flank, left lower back and left lower quadrant pain. Patient states that the pain came on gradually and then became severe. She states the pain is constant but waxes and wanes in intensity. Pain is currently 10/10. She had associated chills but no documented fever . She complains of constant nausea but no vomiting. She denied frequency, urgency hematuria or dysuria however she states that when her bladder is full she feels like the pain is worse. This is the patient's 1st episode of this type of pain. She states that the pain does radiate down her left leg but she denies left leg weakness or loss of bowel or bladder control. Patient also states she has had a cough for 1 week which was initially dry but he is now occasionally productive of phlegm. she denied chest pain or shortness of breath. Related Data Previous Rx's ?Medication ?Instructions ?Recorded omeprazole 20 mg capsule,delayed 20 mg PO DAILY #30 ca ps 02/17/25 release cholecalciferol (vitamin D3) 10 10 mcg PO DAILY #1 cap 02/18/25 mcg (400 unit) capsule cyanocobalamin (vitamin B-12) 1,000 mcg PO DAILY #1 ta b 02/18/25 1,000 mcg tablet ascorbic acid (vitamin C) 500 mg 500 mg PO DAILY #30 t abs 02/24/25 tablet blood pressure kit #1 ea 02/24/25 ferrous sulfate 325 mg (65 mg 325 mg PO DAILY #30 tabs 02/24/25 iron) tablet (iron) Allergies Allergy/AdvReac Type Severity Reaction Status Date / Time Penicillins Allergy Severe Anaphylaxis Verified 04/28/25 09:54 shellfish derived (shellfish) Allergy Severe Anaphylaxis Verified 04/28/25 09:54 Review of Systems 2 Review of Systems: Yes all other systems are reviewed and are negative [facility] Past Medical History Medical History (Updated 04/28/25 @ 14:44 by Dimitrios Ho MD) Hyperlipidemia GERD (gastroesophageal reflux disease) BMI 38.0-38.9,adult Vitamin D insufficiency PTSD (post-traumatic stress disorder) Epigastric pain Severe obesity LUIS FERNANDO (obstructive sleep apnea) Depression Panic disorder Morbid obesity Abdominal pain Surgical History H/O colonoscopy S/P laparoscopic surgery H/O endoscopy Hx laparoscopic cholecystectomy Bariatric surgery status S/P gastric sleeve procedure Family History Family History Father High cholesterol High triglycerides High blood pressure Stroke Mother Uterus cancer High blood pressure Glaucoma (increased eye pressure) Lupus (systemic lupus erythematosus) Social History Social History Housing: House Alcohol intake: current Alcohol intake frequency: does not drink Patient Tobacco Use Status: Never used Tobacco Smoked in Last 30 Days: No Use of substances other than those prescribed or required for medical reasons: No Advance Directives: No Advance Directives Information Provided: Yes Do you have a plan to hurt others: No Plan service: No Current occupational status: employed Cognitive needs: No Hearing needs: No Vision needs: No Physical Exam ED Vital Signs: Vital Signs - 24 hr 04/28/25 09:51 Temperature 98 F Pulse Rate 100 Respiratory Rate 18 Blood Pressure 131/60 Pulse Oximetry 100 Oxygen Delivery Method Room Air BMI result Body Mass Index 40.3 Vital signs were normal Exam: General: Awake, alert , appears to be in mild to moderate distress secondary to her pain Head: Normocephalic, atraumatic EENT: PERRL, sclera and conjunctiva are normal, mouth with no erythema or exudates Neck: Supple, no adenopathy Lung: breath sounds symmetric, no wheezing, no rales and no rhonchi Chest: symmetric movement, nontender Heart: regular rate and rhythm, normal S1, S2 no murmurs or rubs Abdomen: soft, my left upper quadrant tenderness, moderate left lower quadrant tenderness with no rebound, nondistended, normal bowel sounds Back: lumbar sacral vertebral tenderness, tenderness with palpation of the left Lumbar sacral paraspinal muscles, no increased warmth or lesions noted in his area. Moderate left CVA tenderness, no right CVA tenderness. Extremities: no deformities, moves all extremities symmetrically, no edema Neuro: Awake, alert, oriented, normal speech, cranial nerves 2-12 intact, moves all extremities symmetrically Psych: Pleasant, cooperative Course Course Course Narrative: This is an RME: Additional HPI, ROS, PE not included below will be deferred to primary provider. RME assessment and note performed by: Shannon Hamlin PA-C This is a 44 year old female, with no known medical problems, who presents to the ER with complaints of left flank pain with nausea and vomiting x 4 days. Reports some urinary symptoms. Plan: Labs, UA, further ER eval needed Medications Administered Discontinued Medications Generic Name Dose Route Start Last Admin Trade Name Freq PRN Reason Stop Dose Admin Diphenhydramine HCl 50 mg 04/28/25 11:24 04/28/25 11:28 Diphenhydramine Hcl 50 Mg/Ml Vial IVPUSH 04/28/25 11:25 50 mg ONCE STA Administration Hydromorphone HCl 1 mg 04/28/25 11:08 04/28/25 11:17 Hydromorphone Hcl 1 Mg/Ml Syringe IVPUSH 04/28/25 11:09 1 mg ONCE STA Administration Protocol Sodium Chloride 1,000 mls @ 999 mls/hr 04/28/25 11:08 04/28/25 12:41 Ns IV 04/28/25 12:08 Infused .Q1H1M STA Infusion Iohexol 100 ml 04/28/25 12:09 04/28/25 12:10 Iohexol 350 Mg/Ml 100 Ml Infus..Btl IV 04/28/25 12:10 100 ml ONCE ONE Administration Ondansetron HCl 4 mg 04/28/25 11:08 04/28/25 11:17 Ondansetron Hcl 4 Mg/2 Ml Vial IVPUSH 04/28/25 11:09 4 mg ONCE ONE Administration Medical Decision Making Medical Decision Making MDM Narrative: 44-year-old female with a history of hyperlipidemia, GERD, PTSD, depression, gastric sleeve surgery [place] [facility] [place], cholecystectomy who presents emergency department for evaluation of 4 days of constant, left flank, left lower back and left lower quadrant pain. Patient states that the pain came on gradually and then became severe. She states the pain is constant but waxes and wanes in intensity. Pain is currently 10/10. She had associated chills but no documented fever . She complains of constant nausea but no vomiting. She denied frequency, urgency hematuria or dysuria however she states that when her bladder is full she feels like the pain is worse. This is the patient's 1st episode of this type of pain. She states that the pain does radiate down her left leg but she denies left leg weakness or loss of bowel or bladder control. Patient also states she has had a cough for 1 week which was initially dry but he is now occasionally productive of phlegm. she denied chest pain or shortness of breath. Vital signs were unremarkable. Patient did appear to be in distress secondary to her pain. The patient did have tenderness palpation of her lumbar sacral vertebrae as well as the left lumbar sacral paraspinal muscles. She also had mild left upper quadrant and moderate left lower quadrant tenderness. Patient does have left-sided CVA tenderness as well. Differential diagnosis: Includes but is not limited to Viral syndrome, COVID-19, influenza, diverticulitis, pancreatitis, pyelonephritis, renal colic, ureteral colic, ureteral stone, bowel obstruction, anemia, electrolyte abnormalities Course: 11:20 I ordered laboratory evaluation, COVID-19, influenza, RSV, chest x-ray two view,CT abdomen pelvis with IV contrast. Patient was treated with normal saline IV x1 L, Dilaudid 1 mg IV and Zofran 4 mg IV 13:06 CT scan of the abdomen pelvis with IV contrast is concerning for uncomplicated diverticulitis with bowel wall thickening in the lower half of the descending colon with small amounts of free fluid and fat stranding noted by the radiologist. The patient also has a an incidental finding of a 10 mm indeterminate left adrenal gland nodule which the radiologist recommended follow up in 1 year. Patient also has moderate degenerative disc disease of the facets caused by osteoarthritis at L5-S1. I did discuss these incidental findings with the patient and the need to follow up with her PCP. On repeat abdominal exam the patient is still has significant left lower quadrant tenderness she states that initially, her pain improvedimproved with Dilaudid but her pain is now 10/10 again. I ordered Dilaudid 1 mg IV. I also ordered blood cultures x2, lactic acid, Levaquin 500 mg IV and Flagyl 500 mg IV. Given the significant amount of pain and tenderness that she is having, I will discuss admission with the covering surgeon for further management. 14:41 I did discuss the patient's presentation with the covering bariatric surgeon, Dr. Crow who felt that the patient would be better managed by the general surgeons. I did discuss the patient's presentation over tiger textwith Dr. Castillo and she accepted the patient to the surgical service for further management. The patient states she did feel better after the 2nd dose of IV Dilaudid. Differential Diagnosis Differential Diagnoses: The differential diagnosis associated with the presentation includes ( See above) Admission/Observation Consideration of admission/observation: Escalation of care including admission/observation considered ( yes) Consult Healthcare Provider Management of the patient was discussed with: Sample Carrier ( Dr. Crow and Dr. Castillo) Lab Data MDM Lab Attestation statement: I reviewed the patient's lab results. 04/28/25 10:08 04/28/25 10:08 Labs: Lab Results 04/28/25 04/28/25 Range/Units 10:08 10:09 WBC 13.1 H (4.8-10.8) X10*3/uL RBC 4.82 (4.20-5.50) X10*6/uL Hgb 12.3 (12.0-16.0) g/dl Hct 38.9 (37.0-47.0) % MCV 80.7 (80.0-98.0) fL MCH 25.5 L (27.0-33.0) pg MCHC 31.6 (31.0-35.0) g/dl RDW 14.5 (11.0-16.0) % Plt Count 290 (160-400) X10*3/uL MPV 9.9 (9.4-12.3) fL Immature Gran % (Auto) 0.5 H (0.0-0.4) % Neut % (Auto) 76.3 H (45-73) % Lymph % (Auto) 13.3 L (20-40) % [place] % (Auto) 8.6 (2-11) % Eos % (Auto) 1.1 (0-4) % Baso % (Auto) 0.2 (0-2) % Lymph # (Auto) 1.7 (1.2-4.9) X10*3/uL [place] # (Auto) 1.1 (0.1-1.2) X10*3/uL Eos # (Auto) 0.2 (0.0-0.4) X10*3/uL Baso # (Auto) 0.0 (0.0-0.2) X10*3/uL Abs Immat Gran (auto) 0.06 H (0.00-0.03) X10*3/uL Absolute Neuts (auto) 10.0 H (2.0-8.3) x10*3/uL Absolute Nucleated RBC 0.000 (0.0-0.012) X10*3/uL Nucleated RBC % (auto) 0.0 (0.0-0.2) /100WBC Sodium 137 (135-145) mmol/L Potassium 3.9 (3.3-5.1) mmol/L Chloride 103 (96-108) mmol/L Carbon Dioxide 25 (22-29) mmol/L Anion Gap 13 (12-20) BUN 13 (9-16) mg/dL Creatinine 0.66 (0.5-1.4) mg/dL Estim Creat Clear Calc 131.3 Estimated GFR > 60 Random Glucose 92 (60-115) mg/dL Calcium 9.4 D (8.4-10.2) mg/dL Total Bilirubin 0.7 (0.0-1.0) mg/dL Direct Bilirubin 0.2 (0.0-0.5) mg/dL AST 23 (5-31) U/L ALT 19 (0-31) U/L Alkaline Phosphatase 96 (39-117) U/L Total Protein 7.9 (6.5-8.0) g/dL Albumin 4.1 (3.5-5.0) g/dL Lipase 21 (8-78) U/L Urine Color Yellow Urine Appearance Clear Urine pH 6.0 (5.0-9.0) Ur Specific [place] 1.020 (1.005-1.025) Urine Protein Negative (Neg-Trace) mg/dL Urine Glucose (UA) Negative (Negative) mg/dL Urine Ketones Negative (Negative) mg/dL Urine Blood Negative (Negative) Urine Nitrite Negative (Negative) Ur Leukocyte Esterase Negative (Negative) Urine Test NEGATIVE (NEGATIVE) Influenza Type A (PCR) NEGATIVE (Negative) Influenza Type B (PCR) NEGATIVE (Negative) RSV RNA Qual (PCR) NEGATIVE (Negative) SARS-CoV-2 RNA (RT-PCR) NEGATIVE (Negative) Independent Interpretation I performed an independent interpretation of an: Plain X-Ray Interpretation: My independent interpretation of the patient's two view chest x-ray is as follows: No acute disease Radiology Impression Discussion of test interpretation with radiology: I have reviewed the radiologist's reading. Radiologist Impression: CT ABDOMEN AND PELVIS WITH CONTRAST IMPRESSION: Suspected acute diverticulitis, uncomplicated: There is bowel wall thickening which changes of diverticulosis in the lower half of the descending colon. There is also a small amount of free fluid and fat stranding. There is also a single high attenuating pseudodiverticulum along the posterior wall of the descending colon. Differential considerations for bowel wall thickening includes ischemia, inflammatory bowel disease, and neoplasm. There is a supraumbilical hernia containing a short segment of small bowel without obstruction. There are postoperative changes related to gastric sleeve surgery. There is a sliding hiatal hernia involving the proximal end of the gastric sleeve. There is a 10 mm indeterminate left adrenal gland nodule. Recommend 1-year followup adrenal protocol CT. Also, if clinically indicated, consider concurrent laboratory evaluation for possible pheochromocytoma. L5-S1: Moderate degenerative disc disease and facet osteoarthritis. Fleischner guidelines were followed. Electronically signed by: Stevie Conn MD 04/28/2025 12:33 PM PA and lateral views FINDINGS: No consolidation, pleural effusion or pneumothorax. No hyperinflation. Cardiomediastinal silhouette size is normal. Multilevel thoracolumbar spondylosis. 3 mm calcification right upper abdomen, possibly nephrolithiasis.. XR/XR chest 2V IMPRESSION: No acute airspace disease. Multilevel spondylosis, thoracolumbar spine. Electronically signed by: Kev Greco MD 04/28/2025 11:52 AM Chronic Conditions Patient?s care impacted by: Other ( hyperlipidemia) Critical Care Time Critical Care Time Critical Care Time: Yes Total Critical Care Time: 45 Attestation: Critical Care: The patient was critically ill with a high probability of imminent or life threatening deterioration. I spent greater than 30 minutes of discontinuous time evaluating the patient,delivering critical care at the bedside, discussing and evaluating pertinent data with consultants. Critical care time does not include time spent performing separately billable procedures or teaching. Total time spent performing critical care was 45 minutes. Discharge Plan Discharge Clinical Impression: Diverticulitis of descending colon, Adrenal mass Patient Disposition: Admitted As Inpatient Print Language: Malagasy
[2025-04-28 10:21] LABS: MANUAL DIFF FLAG NO
[2025-04-28 10:31] LABS: Hematocrit 38.9 % (37.0-47.0); Hemoglobin 12.3 g/dl (12.0-16.0); Imm Gran Abs Auto 0.06 X10*3/uL (0.00-0.03); Imm Gran Pct Auto 0.5 % (0.0-0.4); Lymphocytes Absolute Auto 1.7 X10*3/uL (1.2-4.9); Mean Corpuscular HGB Conc 31.6 g/dl (31.0-35.0); Mean Corpuscular Hemoglobin 25.5 pg (27.0-33.0); Mean Corpuscular Volume 80.7 fL (80.0-98.0); NRBC Abs Auto 0.000 X10*3/uL (0.0-0.012); NRBC Pct Auto 0.0 /100WBC (0.0-0.2); Platelet Count 290 X10*3/uL (160-400); Red Blood Count 4.82 X10*6/uL (4.20-5.50); White Blood Count 13.1 X10*3/uL (4.8-10.8)
[2025-04-28 10:32] LABS: Appearance Urine Clear; Glucose Urine UA Negative (Negative); PH 6.0 (5.0-9.0); Specific Gravity - Urine 1.020 (1.005-1.025)
[2025-04-28 10:34] LABS: UPreg QC Valid YES
[2025-04-28 10:34] LABS: Anion Gap 13 (12-20); Blood Urea Nitrogen 13 mg/dL (9-16); Calcium 9.4 mg/dL (8.4-10.2); Carbon Dioxide 25 mmol/L (22-29); Chloride 103 mmol/L (96-108); Creatinine Clr Calc Pharmacy 131.3; Estimated Glomerular Filt Rate > 60; Potassium 3.9 mmol/L (3.3-5.1); Sodium 137 mmol/L (135-145)
[2025-04-28 11:10] LABS: Alanine Aminotransferase 19 U/L (0-31); Albumin Level 4.1 g/dL (3.5-5.0); Alkaline Phosphatase 96 U/L (39-117); Aspartate Amino Transferase 23 U/L (5-31); Lipase 21 U/L (8-78); Total Protein 7.9 g/dL (6.5-8.0)
[2025-04-28 11:21] LABS: Resp Syncy Virus RNA Qual PCR NEGATIVE (Negative); SARS COV2 PCR INHOUSE NEGATIVE (Negative)
[2025-04-28] MEDS: iohexoL 350 MG/ML 100 ML INFUS..BTL IV (12:10)
[2025-04-28] MEDS: metroNIDAZOLE/NS 500 MG/100 ML PIGGYBACK 100 MG IV ×2 (14:35→22:39)
--- NOTE | 2025-04-28 16:18 | PHA.MEDREC ---
Addendum entered by Oscar Frye RPh 04/28/25 16:31: med rec reviewed Original Note: Pharmacy Consult ? Medication Reconciliation Pharmacy has completed the medication reconciliation. Spoke with pt, utilizing healthcare interpreter, and pt confirmed her medications. Pt taking Magnesium once daily but doesn't remember the dose of it at this time.
[2025-04-28 16:57] VITALS: BP 137/79; PULSE 90; RESP 18; TEMP 38.8; O2SAT 98
--- NOTE | 2025-04-28 16:58 | PM.HPGS ---
History of Present Illness History of Present Illness Date of Service: 04/28/25 <Steve Medina PA-C - Last Filed: 04/28/25 17:17> 04/29/25 <Martha Castillo MD - Last Filed: 04/29/25 00:49> Chief complaint: Acute diverticulitis <Steve Medina PA-C - Last Filed: 04/28/25 17:17> Narrative: Joaquin Crenshaw is a 44 year old female with a history of hyperlipidemia, GERD, LUIS FERNANDO, adrenal mass, obesity, S/P gastric bypass who presented to the emergency department with a 4 day history of left lower abdominal pain. Has been worsening over the past few days. She endorses subjective chills and nausea. No episodes of vomiting. Additionally has not had bowel movement in 4 days. Typically goes daily. She denies any urinary symptoms. She has not experienced anything like this before. Workup in the ED significant for leukocytosis 13.1, CT of the abdomen showing uncomplicated diverticulitis, thickened bowel wall with diverticulosis in the descending colon realize inflammatory changes. Additionally there is a single high attenuating pseudodiverticulum posterior well descending colon. She was started on IV Levaquin and metronidazole as she has allergy to penicillins. CMP negative. UA also negative. Currently states pain is 8/10, still has nausea. Continues to report suggestive chills. She denies any current daily medications besides Tylenol. Denies any known cardiac issues. Denies history of diabetes. She has allergies to penicillin, shellfish. Surgical history significant for section x2, gastric sleeve, laparoscopic cholecystectomy. <Steve Medina PA-C - Last Filed: 04/28/25 17:17> FORMERLY [facility] Past Medical History Medical History: Medical History Hyperlipidemia GERD (gastroesophageal reflux disease) BMI 38.0-38.9,adult Vitamin D insufficiency PTSD (post-traumatic stress disorder) Epigastric pain Severe obesity LUIS FERNANDO (obstructive sleep apnea) Depression Panic disorder Morbid obesity Abdominal pain <Steve Medina PA-C - Last Filed: 04/28/25 17:17> Family History Family History: Family History Father High cholesterol High triglycerides High blood pressure Stroke Mother Uterus cancer High blood pressure Glaucoma (increased eye pressure) Lupus (systemic lupus erythematosus) <Steve Medina PA-C - Last Filed: 04/28/25 17:17> Surgical History Surgical History: Surgical History H/O colonoscopy S/P laparoscopic surgery H/O endoscopy Hx laparoscopic cholecystectomy Bariatric surgery status S/P gastric sleeve procedure <Steve Medina PA-C - Last Filed: 04/28/25 17:17> Social History Social History: Social History Household Members: Family Housing: House Do you presently have visiting nurse or other home services: No Alcohol intake: current Alcohol intake frequency: does not drink Patient Tobacco Use Status: Never used Tobacco Smoked in Last 30 Days: No Use of substances other than those prescribed or required for medical reasons: No Currently Displaying Signs/Symptoms of Drug Intoxication Withdrawal: No Have you been hit, kicked, punched, or otherwise hurt by someone within the past year? If so, by whom?: No Do you feel safe in your current relationship?: Yes Is there a partner from a previous relationship who is making you feel unsafe now?: No Are you made to feel afraid or neglected: No Advance Directives: No Advance Directives Information Provided: Yes Do you have a plan to hurt others: No Plan Recently lost weight without trying: No Eating poorly because of decreased appetite: No Nutrition Risks: No Nutritional Risk Patient : No : No Poor oral hygiene: No service: No Current occupational status: employed Cognitive needs: No Hearing needs: No Vision needs: No <Steve Medina PA-C - Last Filed: 04/28/25 17:17> Meds Allergies/Adverse reactions: Allergies Allergy/AdvReac Type Severity Reaction Status Date / Time Penicillins Allergy Severe Anaphylaxis Verified 04/28/25 09:54 shellfish derived (shellfish) Allergy Severe Anaphylaxis Verified 04/28/25 09:54 <Steve Medina PA-C - Last Filed: 04/28/25 17:17> Active Medications: Current Medications Sodium Chloride (Ns) 1,000 mls @ 125 mls/hr IV .Q8H STA Stop: 04/28/25 21:29 Last Admin: 04/28/25 14:36 Dose: 125 mls/hr <Steve Medina PA-C - Last Filed: 04/28/25 17:17> Home medications: Home Medications ?Medication ?Instructions ?Recorded ?Confirmed ?Last Taken ?Type multivitamin 1 tab PO DAILY 04/28/25 04/28/25 04/27/25 History omega-3 fatty acids 1,000 mg 1,000 mg PO DAILY 04/28/25 04/28/25 04/27/25 History capsule omeprazole 20 mg capsule,delayed 20 mg PO DAILY@0630 04/28/25 04/28/25 04/27/25 History release <Steve Medina PA-C - Last Filed: 04/28/25 17:17> Physical Exam Vital Signs: Vital Signs: Last Vital Signs Temp 101.9 F H 04/28/25 16:57 Pulse 90 04/28/25 16:57 Resp 18 04/28/25 16:57 BP 137/79 04/28/25 16:57 Pulse Ox 98 04/28/25 16:57 O2 Del Method Room Air 04/28/25 16:57 BMI result Body Mass Index 40.3 <KEL Reyngaa Last Filed: 04/28/25 17:17> Const: General: no acute distress and ill appearing; No comfortable <KEL Reynaga Last Filed: 04/28/25 17:17> Orientation/consciousness: patient oriented x3 <Steve Medina PA-C - Last Filed: 04/28/25 17:17> GI: Inspection: No distended <KEL Reynaga Last Filed: 04/28/25 17:17> Palpation (GI): Soft to palpation, Tenderness to palpation present (GI) in the LLQ, periumbilically and suprapubicly and Guarding due to palpation present (GI) (Voluntary) in the LLQ <Steve Medina PA-C - Last Filed: 04/28/25 17:17> Neuro: General: patient oriented x3 <KEL Reynaga Last Filed: 04/28/25 17:17> Results Results Labs: Short CBC 04/28/25 Range/Units 10:08 WBC 13.1 H (4.8-10.8) X10*3/uL Hgb 12.3 (12.0-16.0) g/dl Hct 38.9 (37.0-47.0) % Plt Count 290 (160-400) X10*3/uL BMP 04/28/25 10:08 Sodium 137 Potassium 3.9 Chloride 103 Carbon Dioxide 25 BUN 13 Creatinine 0.66 Calcium 9.4 D Liver Function 04/28/25 Range/Units 10:08 Total Bilirubin 0.7 (0.0-1.0) mg/dL Direct Bilirubin 0.2 (0.0-0.5) mg/dL AST 23 (5-31) U/L ALT 19 (0-31) U/L Alkaline Phosphatase 96 (39-117) U/L Albumin 4.1 (3.5-5.0) g/dL Urine 04/28/25 04/28/25 Range/Units 10:08 10:09 Urine Color Yellow Urine Appearance Clear Urine pH 6.0 (5.0-9.0) Ur Specific [place] 1.020 (1.005-1.025) Urine Protein Negative (Neg-Trace) mg/dL Urine Glucose (UA) Negative (Negative) mg/dL Urine Test NEGATIVE (NEGATIVE) <Steve Medina PA-C - Last Filed: 04/28/25 17:17> Assessment and Plan (1) Diverticulitis of descending colon: Status: Acute <Steve Medina PA-C - Last Filed: 04/28/25 17:17> 44 year old female with a history of hyperlipidemia, GERD, LUIS FERNANDO, adrenal mass, obesity, S/P gastric bypass who presented to the emergency department with a 4 day history of left lower abdominal pain with associated nausea, chills who was found to have acute uncomplicated diverticulitis. Workup in the ED significant for leukocytosis 13.1, CT of the abdomen showing diverticulitis of the descending colon they thick colon wall and localized inflammatory changes without abscess formation or perforation. Additionally does have fever this afternoon. On exam abdomen soft, very tender in the lower left quadrant with some voluntary guarding. Looks very uncomfortable. We will admit for management of acute diverticulitis. Currently she is NPO, we will continue IV fluids. She is okay to have sips of clear liquid with meds. She has been started on Flagyl and levofloxacin, we will continue this while inpatient. Patient agreeable to this plan. We will continue to monitor for any acute changes. No surgical intervention indicated at this time Continue IV Flagyl, levofloxacin IV fluids NPO with sips Ambulation as tolerated We will recheck a.m. labs <Steve Medina PA-C - Last Filed: 04/28/25 17:17> 44 year old female with a history of hyperlipidemia, GERD, LUIS FERNANDO, adrenal mass, obesity, S/P gastric bypass who presented to the emergency department with a 4 day history of left lower abdominal pain with associated nausea, chills who was found to have acute uncomplicated diverticulitis. Workup in the ED significant for leukocytosis 13.1, CT of the abdomen showing diverticulitis of the descending colon they thick colon wall and localized inflammatory changes without abscess formation or perforation. Additionally does have fever this afternoon. On exam abdomen soft, very tender in the lower left quadrant with some voluntary guarding. Looks very uncomfortable. We will admit for management of acute diverticulitis. Currently she is NPO, we will continue IV fluids. She is okay to have sips of clear liquid with meds. She has been started on Flagyl and levofloxacin, we will continue this while inpatient. Patient agreeable to this plan. We will continue to monitor for any acute changes. No surgical intervention indicated at this time Continue IV Flagyl, levofloxacin IV fluids NPO with sips Ambulation as tolerated We will recheck a.m. labs pt seen and agree with above history and physical pt saying she is feeling better but still with left lower quad and lpwer flank pain ct reviewed hopefully will get better with conservative care - bowel rest, ivf, iv antibx. this is pts second episode of significance - if improves from a second uncomplicated diverticulitis episode would consider discussing elective resection. <Martha Castillo MD - Last Filed: 04/29/25 00:49> Quality Stroke Does the patient have a stroke diagnosis?: No <Steve Medina PA-C - Last Filed: 04/28/25 17:17> VTE Prior VTE?: No <Steve Medina PA-C - Last Filed: 04/28/25 17:17> VTE Risk Level:: Medical - moderate - high <Steve Medina PA-C - Last Filed: 04/28/25 17:17> VTE Device Contraindication: N/A - Device Ordered <Steve Medina PA-C - Last Filed: 04/28/25 17:17> VTE Drug Contraindication: N/A - Med Ordered <Steve Medina PA-C - Last Filed: 04/28/25 17:17> Procedures Date of Service Date of Service: 04/28/25 <Steve Medina PA-C - Last Filed: 04/28/25 17:17> 04/29/25 <Martha Castillo MD - Last Filed: 04/29/25 00:49>
--- NOTE | 2025-04-28 17:12 | PC.NURSE ---
Provider aware of temp, stating okay to give po abt, complete this bag of NS that is infusing and switch to LR at 100 when this bag of NS has stopped infusing.
[2025-04-28 17:57] VITALS: BP 103/57; PULSE 97; RESP 19; TEMP 38; O2SAT 95; BMI 40.7
[2025-04-28] MEDS: oxyCODONE HCl Immed Release 5 MG TABLET PO ×2 (18:14→23:58)
[2025-04-28 18:58] VITALS: BP 103/61; PULSE 88; RESP 18; TEMP 36.9; O2SAT 92
[2025-04-28] MEDS: 0.9 % Sodium Chloride Flush 3 ML SYRINGE IVFLUSH (19:14)
[2025-04-28 22:38] VITALS: RESP 18
[2025-04-28 23:51] VITALS: RESP 18
[2025-04-28] MEDS: Lactated Ringers 1,000 ML 100 ML IVCONT (23:53)
[2025-04-29 03:47] VITALS: BP 110/63; PULSE 86; RESP 19; TEMP 36.6; O2SAT 95
[2025-04-29] MEDS: oxyCODONE HCl Immed Release 5 MG TABLET PO ×3 (04:12→21:08)
[2025-04-29 06:07] LABS: Hematocrit 34.4 % (37.0-47.0); Hemoglobin 10.9 g/dl (12.0-16.0); Mean Corpuscular HGB Conc 31.7 g/dl (31.0-35.0); Mean Corpuscular Hemoglobin 25.8 pg (27.0-33.0); Mean Corpuscular Volume 81.3 fL (80.0-98.0); NRBC Abs Auto 0.000 X10*3/uL (0.0-0.012); NRBC Pct Auto 0.0 /100WBC (0.0-0.2); Platelet Count 214 X10*3/uL (160-400); Red Blood Count 4.23 X10*6/uL (4.20-5.50); White Blood Count 10.9 X10*3/uL (4.8-10.8)
[2025-04-29 06:18] LABS: Anion Gap 12 (12-20); Blood Urea Nitrogen 9 mg/dL (9-16); Calcium 8.7 mg/dL (8.4-10.2); Carbon Dioxide 23 mmol/L (22-29); Chloride 104 mmol/L (96-108); Creatinine Clr Calc Pharmacy 153.0; Estimated Glomerular Filt Rate > 60; Potassium 3.7 mmol/L (3.3-5.1); Sodium 135 mmol/L (135-145)
[2025-04-29] MEDS: metroNIDAZOLE/NS 500 MG/100 ML PIGGYBACK 100 MG IV ×3 (06:34→22:07)
[2025-04-29 07:16] VITALS: BP 112/65; PULSE 83; RESP 16; TEMP 36.8; O2SAT 97
--- NOTE | 2025-04-29 08:07 | P.PNGS_ITS ---
Subjective Subjective Date of Service: 04/29/25 <Steve Medina PA-C - Last Filed: 04/29/25 08:16> 04/29/25 <Carlos Amor MD - Last Filed: 04/29/25 15:02> Interval history: Antonia okay today, still having significatn pain but improved from yesterday. Complaining of some gas pains. denies nausea or vomiting. Denies fevers this morniing <Steve Medina PA-C - Last Filed: 04/29/25 08:16> Physical Exam 2 Vital Signs: Vital Signs: Last Vital Signs Temp 98.2 F 04/29/25 07:16 Pulse 83 04/29/25 07:16 Resp 16 04/29/25 07:16 BP 112/65 04/29/25 07:16 Pulse Ox 97 04/29/25 07:16 O2 Del Method Room Air 04/29/25 07:16 BMI result Body Mass Index 40.7 <Steve Medina PA-C - Last Filed: 04/29/25 08:16> Const: General: comfortable and no acute distress <Steve Medina PA-C - Last Filed: 04/29/25 08:16> Orientation/consciousness: patient oriented x3 <Steve Medina PA-C - Last Filed: 04/29/25 08:16> Resp: Effort & Inspection: normal respiratory effort and able to speak in complete sentences <Steve Medina PA-C - Last Filed: 04/29/25 08:16> GI: Inspection: No distended <Steve Medina PA-C - Last Filed: 04/29/25 08:16> Palpation (GI): Soft to palpation, Tenderness to palpation present (GI) in the LLQ and suprapubicly and Guarding due to palpation present (GI) (voluntary) in the LLQ <Steve Medina PA-C - Last Filed: 04/29/25 08:16> Neuro: General: patient oriented x3 <KEL Reynaga Last Filed: 04/29/25 08:16> Objective Data Active Medications Acetaminophen (Acetaminophen 325 Mg Tablet) 650 mg PO Q6H PRN PRN Reason: Pain, Mild 1-3,fever,headache Last Admin: 04/28/25 17:17 Dose: 650 mg Documented By: TOBY Calcium Carbonate (Calcium Carbonate 750 Mg Tab.Chew) 750 mg PO Q4H PRN PRN Reason: Heartburn Enoxaparin Sodium (Enoxaparin Sodium 40 Mg/0.4 Ml Syringe) 40 mg SUBCUT Q24H [facility] Last Admin: 04/28/25 17:18 Dose: Not Given Documented By: TOBY Non-Admin Reason: Patient Refused Lactated Ringer's (Lr) 1,000 mls @ 100 mls/hr IVCONT .Q10H [facility] Last Admin: 04/28/25 23:53 Dose: 100 mls/hr Documented By: [place] Levofloxacin (Levaquin) 500 mg in 100 mls @ 100 mls/hr IV Q24H JAELYN Metronidazole (Flagyl) 500 mg in 100 mls @ 100 mls/hr IV Q8H [facility] Last Infusion: 04/29/25 07:34 Dose: Infused Documented By: BERNARD Magnesium Hydroxide (Milk Of Magnesia 30 Ml Oral.Susp) 30 ml PO DAILY PRN PRN Reason: Constipation Melatonin (Melatonin 3 Mg Tablet) 6 mg PO BEDTIME PRN PRN Reason: Insomnia Morphine Sulfate (Morphine Sulfate 4 Mg/Ml Cartridge) 2 mg IVPUSH Q4H PRN; Protocol PRN Reason: Pain, Severe (Pain Scale 7-10) Last Admin: 04/28/25 22:38 Dose: 2 mg Documented By: [place] Oxycodone HCl (Oxycodone Hcl Immed Release 5 Mg Tablet) 5 mg PO Q4H PRN PRN Reason: Pain, Moderate(Pain Scale 4-6) Last Admin: 04/29/25 04:12 Dose: 5 mg Documented By: [place] Sodium Chloride (0.9 % Sodium Chloride Flush 3 Ml Syringe) 3 ml IVFLUSH QSHIFT [facility] Last Admin: 04/29/25 07:34 Dose: Not Given Documented By: BERNARD Non-Radha Reason: IV Running <Steve Medina PA-C - Last Filed: 04/29/25 08:16> Labs CBC & Chem 7: 04/29/25 05:42 04/29/25 05:42 <Steve Medina PA-C - Last Filed: 04/29/25 08:16> Labs: Laboratory Results - last 24 hr 04/28/25 04/28/25 04/28/25 10:08 10:09 14:26 MCV 80.7 MCH 25.5 L MCHC 31.6 RDW 14.5 Plt Count 290 MPV 9.9 Immature Gran % (Auto) 0.5 H Neut % (Auto) 76.3 H Lymph % (Auto) 13.3 L Edwards % (Auto) 8.6 Eos % (Auto) 1.1 Baso % (Auto) 0.2 Lymph # (Auto) 1.7 Edwards # (Auto) 1.1 Eos # (Auto) 0.2 Baso # (Auto) 0.0 Abs Immat Gran (auto) 0.06 H Absolute Neuts (auto) 10.0 H Absolute Nucleated RBC 0.000 Nucleated RBC % (auto) 0.0 Anion Gap 13 Estim Creat Clear Calc 131.3 Estimated GFR > 60 Random Glucose 92 Lactic Acid 0.8 Calcium 9.4 D Total Bilirubin 0.7 Direct Bilirubin 0.2 AST 23 ALT 19 Alkaline Phosphatase 96 Total Protein 7.9 Albumin 4.1 Lipase 21 TSH 0.60 Urine Color Yellow Urine Appearance Clear Urine pH 6.0 Ur Specific [place] 1.020 Urine Protein Negative Urine Glucose (UA) Negative Urine Ketones Negative Urine Blood Negative Urine Nitrite Negative Ur Leukocyte Esterase Negative Urine Test NEGATIVE Influenza Type A (PCR) NEGATIVE Influenza Type B (PCR) NEGATIVE RSV RNA Qual (PCR) NEGATIVE SARS-CoV-2 RNA (RT-PCR) NEGATIVE 04/29/25 05:42 MCV 81.3 MCH 25.8 L MCHC 31.7 RDW 14.4 Plt Count 214 D MPV 9.9 Immature Gran % (Auto) Neut % (Auto) Lymph % (Auto) Edwards % (Auto) Eos % (Auto) Baso % (Auto) Lymph # (Auto) Edwards # (Auto) Eos # (Auto) Baso # (Auto) Abs Immat Gran (auto) Absolute Neuts (auto) Absolute Nucleated RBC 0.000 Nucleated RBC % (auto) 0.0 Anion Gap 12 Estim Creat Clear Calc 153.0 Estimated GFR > 60 Random Glucose 88 Lactic Acid Calcium 8.7 D Total Bilirubin Direct Bilirubin AST ALT Alkaline Phosphatase Total Protein Albumin Lipase TSH Urine Color Urine Appearance Urine pH Ur Specific [place] Urine Protein Urine Glucose (UA) Urine Ketones Urine Blood Urine Nitrite Ur Leukocyte Esterase Urine Test Influenza Type A (PCR) Influenza Type B (PCR) RSV RNA Qual (PCR) SARS-CoV-2 RNA (RT-PCR) <Steve Medina PA-C - Last Filed: 04/29/25 08:16> Procedures Date of Service Date of Service: 04/29/25 <Steve Medina PA-C - Last Filed: 04/29/25 08:16> 04/29/25 <Carlos Amor MD - Last Filed: 04/29/25 15:02> Progress Note: A&P Assessment and plan (1) Diverticulitis of descending colon: Status: Acute <Steve Medina PA-C - Last Filed: 04/29/25 08:16> Assessment and Plan: Says she feels better Admits to having pain in the left side - states this has improved No fever No nausea or vomiting Abdomen is soft, with some tenderness in the left lower quadrant Note of changes consistent with the acute diverticulitis in the CAT scan CAT scan also shows non obstructed fat containing umbilical hernia Continue IV antibiotics Okay to have sips of clear liquids and ice chips Abdomen is benign otherwise Seen and examined independently <Carlos Amor MD - Last Filed: 04/29/25 15:02> Assessment and Plan: 44 year old female admitted for uncomplicated diverticulitis. Admission day 1, some improvement in pain but still reporting significant pain. Remains NPO. No nausea or vomiting today. No longer febrile. On exam remains very tender in LLQ with some voluntary guarding. Am labs showing some improvement in leukocytosis. To note patient also has a a bowel containing supraumbilical hernia seen on CT scan. does not appear to be obstructed at this time but will continue to follow this, should follow up as outpt for repair in future. will continue bowel rest for now and slowly advance when her pain improves. continue NPO, sips okay continue IV abx recommended ambulation outpt f/u for hernia <Steve Medina PA-C - Last Filed: 04/29/25 08:16> Time Spent With Patient Time: Total time managing care of this patient today ____ minutes. <Steve Medina PA-C - Last Filed: 04/29/25 08:16> Quality Stroke Does the patient have a stroke diagnosis?: No <KEL Reynaga Last Filed: 04/29/25 08:16> VTE Prior VTE?: No <Steve Medina PA-C - Last Filed: 04/29/25 08:16> VTE Risk Level:: Medical - moderate - high <Steve Medina PA-C - Last Filed: 04/29/25 08:16> VTE Device Contraindication: N/A - Device Ordered <Steve Medina PA-C - Last Filed: 04/29/25 08:16> VTE Drug Contraindication: N/A - Med Ordered <Steve Medina PA-C - Last Filed: 04/29/25 08:16>
--- NOTE | 2025-04-29 09:21 | MHC.CM.PN ---
DX Diverticulitis Lives with SO Independent with ALDs, no AD A new HCP has been documented and scanned into the pts EMR PCP [facility] home self care [facility] will transport home at discharge
[2025-04-29] MEDS: Lactated Ringers 1,000 ML 100 ML IVCONT ×2 (11:51→22:06)
[2025-04-29 13:55] VITALS: TEMP 38.2
[2025-04-29 14:51] VITALS: TEMP 37.2
[2025-04-29 15:02] VITALS: BP 124/75; PULSE 88; RESP 19; TEMP 36.6; O2SAT 97
--- NOTE | 2025-04-29 15:02 | PM.EVENT ---
Event Note Date of Service: 04/29/25 Event Note: Seen on afternoon rounds Feels improved overall although admits to left lower quadrant pain Abdomen is soft although with some tenderness continue IV antibiotics Okay to just have sips of clear liquids and ice chips We will continue to follow closely Time Spent With Patient Time: Total time managing care of this patient today ____ minutes.
[2025-04-29 19:16] VITALS: BP 103/56; PULSE 75; RESP 18; TEMP 36.8; O2SAT 97
[2025-04-30 03:30] VITALS: BP 96/52; PULSE 69; RESP 17; TEMP 36.2; O2SAT 96
[2025-04-30] MEDS: metroNIDAZOLE/NS 500 MG/100 ML PIGGYBACK 100 MG IV ×3 (05:49→21:33)
--- NOTE | 2025-04-30 07:37 | P.PNGS_ITS ---
Subjective Subjective Date of Service: 04/30/25 <Steve Medina PA-C - Last Filed: 04/30/25 07:47> 04/30/25 <Carlos Amor MD - Last Filed: 04/30/25 08:01> Interval history: overall improving, feels much better at rest, now more intermittent pain rather than constant. passing gas, feels like she has to pass a bowel movement. Denies nausea or vomiting. reports subjective fevers. has had a few low bp readings, denies dizziness, shortness of breath. states she is very hungry < Steve Medina PA-C - Last Filed: 04/30/25 07:47> Physical Exam 2 Vital Signs: Vital Signs: Last Vital Signs Temp 97.1 F 04/30/25 03:30 Pulse 69 04/30/25 03:30 Resp 17 04/30/25 03:30 BP 96/52 L 04/30/25 03:30 Pulse Ox 96 04/30/25 03:30 O2 Del Method Room Air 04/30/25 03:30 BMI result Body Mass Index 40.7 <Steve Medina PA-C - Last Filed: 04/30/25 07:47> Const: General: comfortable and no acute distress <KEL Reynaga Last Filed: 04/30/25 07:47> Orientation/consciousness: patient oriented x3 <KEL Reynaga Last Filed: 04/30/25 07:47> Resp: Effort & Inspection: normal respiratory effort and able to speak in complete sentences <Steve Medina PA-C - Last Filed: 04/30/25 07:47> GI: Inspection: No distended <KEL Reynaga Last Filed: 04/30/25 07:47> Palpation (GI): Soft to palpation, Tenderness to palpation present (GI) in the LLQ and no guarding <KEL Reynaga Last Filed: 04/30/25 07:47> Neuro: General: patient oriented x3 <KEL Reynaga Last Filed: 04/30/25 07:47> Objective Data Active Medications Acetaminophen (Acetaminophen 325 Mg Tablet) 650 mg PO Q6H PRN PRN Reason: Pain, Mild 1-3,fever,headache Last Admin: 04/30/25 00:41 Dose: 650 mg Documented By: CHRIS Calcium Carbonate (Calcium Carbonate 750 Mg Tab.Chew) 750 mg PO Q4H PRN PRN Reason: Heartburn Last Admin: 04/29/25 08:30 Dose: 750 mg Documented By: BERNARD Enoxaparin Sodium (Enoxaparin Sodium 40 Mg/0.4 Ml Syringe) 40 mg SUBCUT Q24H [facility] Last Admin: 04/29/25 17:21 Dose: Not Given Documented By: BERNARD Non-Admin Reason: Patient Refused Lactated Ringer's (Lr) 1,000 mls @ 100 mls/hr IVCONT .Q10H [facility] Last Infusion: 04/30/25 06:50 Dose: 100 mls/hr Documented By: CHRIS Levofloxacin (Levaquin) 500 mg in 100 mls @ 100 mls/hr IV Q24H [facility] Last Infusion: 04/29/25 14:52 Dose: Infused Documented By: BERNARD Metronidazole (Flagyl) 500 mg in 100 mls @ 100 mls/hr IV Q8H [facility] Last Infusion: 04/30/25 06:50 Dose: Infused Documented By: CHRIS Magnesium Hydroxide (Milk Of Magnesia 30 Ml Oral.Susp) 30 ml PO DAILY PRN PRN Reason: Constipation Melatonin (Melatonin 3 Mg Tablet) 6 mg PO BEDTIME PRN PRN Reason: Insomnia Morphine Sulfate (Morphine Sulfate 4 Mg/Ml Cartridge) 2 mg IVPUSH Q4H PRN; Protocol PRN Reason: Pain, Severe (Pain Scale 7-10) Last Admin: 04/28/25 22:38 Dose: 2 mg Documented By: [place] Oxycodone HCl (Oxycodone Hcl Immed Release 5 Mg Tablet) 5 mg PO Q4H PRN PRN Reason: Pain, Moderate(Pain Scale 4-6) Last Admin: 04/29/25 21:08 Dose: 5 mg Documented By: CHRIS Sodium Chloride (0.9 % Sodium Chloride Flush 3 Ml Syringe) 3 ml IVFLUSH QSHIFT [facility] Last Admin: 04/29/25 23:32 Dose: Not Given Documented By: CHRIS Non-Admin Reason: IV Running <Steve Medina PA-C - Last Filed: 04/30/25 07:47> Labs CBC & Chem 7: 04/30/25 07:23 04/29/25 05:42 <Steve Medina PA-C - Last Filed: 04/30/25 07:47> Microbiology Microbiology Results: Microbiology 04/28/25 14:26 Blood Culture - Preliminary Blood - Venous No growth after 24 hours. 04/28/25 14:26 Blood Culture - Preliminary Blood - Venous No growth after 24 hours. <Steve Medina PA-C - Last Filed: 04/30/25 07:47> Procedures Date of Service Date of Service: 04/30/25 <Steve Medina PA-C - Last Filed: 04/30/25 07:47> 04/30/25 <Carlos Amor MD - Last Filed: 04/30/25 08:01> Progress Note: A&P Assessment and plan (1) Diverticulitis of descending colon: Status: Acute <Steve Medina PA-C - Last Filed: 04/30/25 07:47> Assessment and Plan: Says she feels much better this morning Still with some pain but feels that this has significantly improved No nausea or vomiting Passing flatus Abdomen is, soft, benign with mild tenderness lower quadrant Okay to have some clear liquids today but I would advance very slowly IV antibiotics Seen and examined independently <Carlos Amor MD - Last Filed: 04/30/25 08:01> Assessment and Plan: 44 year old female admitted for uncomplicated diverticulitis. Admission day 2, reports she is feeling much better today. Pain intermittent at rest. She looks well. Denies nausea or vomiting today. No longer febrile although reporting subjective chills. Passing gas, no BM but feels like she has to. On exam remains tender in LLQ, otherwise soft and benign. Am labs pending. Will try advancing diet today, clear liquid diet, emphasized taking things slow with advancing diet. Patient understands and agrees Trial clear liquid diet, slowly advance continue IV abx recommended ambulation outpt f/u for hernia <Steve Medina PA-C - Last Filed: 04/30/25 07:47> Time Spent With Patient Time: Total time managing care of this patient today ____ minutes. <Steve Medina PA-C - Last Filed: 04/30/25 07:47> Quality Stroke Does the patient have a stroke diagnosis?: No <Steve Medina PA-C - Last Filed: 04/30/25 07:47> VTE Prior VTE?: No <Steve Medina PA-C - Last Filed: 04/30/25 07:47> VTE Risk Level:: Medical - moderate - high <Steve Medina PA-C - Last Filed: 04/30/25 07:47> VTE Device Contraindication: N/A - Device Ordered <Steve Medina PA-C - Last Filed: 04/30/25 07:47> VTE Drug Contraindication: N/A - Med Ordered <Steve Medina PA-C - Last Filed: 04/30/25 07:47>
[2025-04-30 07:55] LABS: Hematocrit 34.4 % (37.0-47.0); Hemoglobin 10.9 g/dl (12.0-16.0); Mean Corpuscular HGB Conc 31.7 g/dl (31.0-35.0); Mean Corpuscular Hemoglobin 25.6 pg (27.0-33.0); Mean Corpuscular Volume 80.9 fL (80.0-98.0); NRBC Abs Auto 0.000 X10*3/uL (0.0-0.012); NRBC Pct Auto 0.0 /100WBC (0.0-0.2); Platelet Count 243 X10*3/uL (160-400); Red Blood Count 4.25 X10*6/uL (4.20-5.50); White Blood Count 7.4 X10*3/uL (4.8-10.8)
[2025-04-30 07:56] VITALS: BP 115/65; PULSE 68; RESP 15; TEMP 36.7; O2SAT 99
[2025-04-30 08:06] LABS: Anion Gap 13 (12-20); Blood Urea Nitrogen 8 mg/dL (9-16); Calcium 9.1 mg/dL (8.4-10.2); Carbon Dioxide 25 mmol/L (22-29); Chloride 105 mmol/L (96-108); Creatinine Clr Calc Pharmacy 147.8; Estimated Glomerular Filt Rate > 60; Potassium 3.6 mmol/L (3.3-5.1); Sodium 139 mmol/L (135-145)
[2025-04-30] MEDS: Lactated Ringers 1,000 ML 100 ML IVCONT ×2 (09:39→21:32)
[2025-04-30] MEDS: 0.9 % Sodium Chloride Flush 3 ML SYRINGE IVFLUSH (15:03)
[2025-04-30 15:57] VITALS: BP 115/76; PULSE 84; RESP 18; TEMP 36.2; O2SAT 96
[2025-04-30 19:28] VITALS: BP 101/54; PULSE 70; RESP 18; O2SAT 95
[2025-04-30] MEDS: oxyCODONE HCl Immed Release 5 MG TABLET PO (20:07)
[2025-05-01 04:00] VITALS: BP 101/75; PULSE 78; RESP 18; TEMP 36.9; O2SAT 99
[2025-05-01 04:27] LABS: Glucose, Whole Blood 112 mg/dL (60-115)
[2025-05-01] MEDS: metroNIDAZOLE/NS 500 MG/100 ML PIGGYBACK 100 MG IV ×2 (05:49→21:36)
[2025-05-01 07:27] VITALS: BP 101/56; PULSE 64; RESP 18; TEMP 36.3; O2SAT 96
[2025-05-01] MEDS: Lactated Ringers 1,000 ML 100 ML IVCONT ×2 (08:55→21:43)
[2025-05-01] MEDS: 0.9 % Sodium Chloride Flush 3 ML SYRINGE IVFLUSH ×2 (09:01→15:24)
--- NOTE | 2025-05-01 09:38 | PM.PNGS ---
Subjective Subjective Date of Service: 05/01/25 Interval history: Continues to feel improved. Tolerating clear liquid diet. Denies nausea or vomiting. Has felt like her blood pressure has been low intermittently Physical Exam Vital Signs: Vital Signs: Last Vital Signs Temp 97.4 F 05/01/25 07:27 Pulse 64 05/01/25 07:27 Resp 18 05/01/25 07:27 BP 101/56 L 05/01/25 07:27 Pulse Ox 96 05/01/25 07:27 O2 Del Method Room Air 05/01/25 07:27 O2 Flow Rate 95 04/30/25 19:28 BMI result Body Mass Index 40.7 Const: General: comfortable and no acute distress Orientation/consciousness: patient oriented x3 GI: Inspection: No distended Palpation (GI): Soft to palpation and Tenderness to palpation present (GI) (Mild) in the LLQ Neuro: General: patient oriented x3 Objective Data Active Medications Acetaminophen (Acetaminophen 325 Mg Tablet) 650 mg PO Q6H PRN PRN Reason: Pain, Mild 1-3,fever,headache Last Admin: 04/30/25 00:41 Dose: 650 mg Documented By: CHRIS Calcium Carbonate (Calcium Carbonate 750 Mg Tab.Chew) 750 mg PO Q4H PRN PRN Reason: Heartburn Last Admin: 05/01/25 04:16 Dose: 750 mg Documented By: WILLOW Enoxaparin Sodium (Enoxaparin Sodium 40 Mg/0.4 Ml Syringe) 40 mg SUBCUT Q24H [facility] Last Admin: 04/30/25 16:44 Dose: Not Given Documented By: TITUS Non-Admin Reason: Patient Refused Levofloxacin (Levaquin) 500 mg in 100 mls @ 100 mls/hr IV Q24H [facility] Last Infusion: 04/30/25 15:10 Dose: Infused Documented By: TITUS Metronidazole (Flagyl) 500 mg in 100 mls @ 100 mls/hr IV Q8H [facility] Last Infusion: 05/01/25 07:12 Dose: Infused Documented By: TITUS Lactated Ringer's (Lr) 1,000 mls @ 100 mls/hr IVCONT .Q10H [facility] Last Admin: 05/01/25 08:55 Dose: 100 mls/hr Documented By: HO.JERUSIA Magnesium Hydroxide (Milk Of Magnesia 30 Ml Oral.Susp) 30 ml PO DAILY PRN PRN Reason: Constipation Melatonin (Melatonin 3 Mg Tablet) 6 mg PO BEDTIME PRN PRN Reason: Insomnia Morphine Sulfate (Morphine Sulfate 4 Mg/Ml Cartridge) 2 mg IVPUSH Q4H PRN; Protocol PRN Reason: Pain, Severe (Pain Scale 7-10) Last Admin: 04/28/25 22:38 Dose: 2 mg Documented By: [place] Oxycodone HCl (Oxycodone Hcl Immed Release 5 Mg Tablet) 5 mg PO Q4H PRN PRN Reason: Pain, Moderate(Pain Scale 4-6) Last Admin: 04/30/25 20:07 Dose: 5 mg Documented By: IVANA Sodium Chloride (0.9 % Sodium Chloride Flush 3 Ml Syringe) 3 ml IVFLUSH [facility] Last Admin: 05/01/25 09:01 Dose: 3 ml Documented By: TITUS Labs 04/30/25 07:23 04/30/25 07:23 Labs: Laboratory Results - last 24 hr 05/01/25 04:23 POC Glucose 112 Microbiology Microbiology Results: Microbiology 04/28/25 14:26 Blood Culture - Preliminary Blood - Venous No growth after 48 hours. 04/28/25 14:26 Blood Culture - Preliminary Blood - Venous No growth after 48 hours. Procedures Date of Service Date of Service: 05/01/25 Progress Note: A&P Assessment and plan (1) Diverticulitis of descending colon: Status: Acute Plan 44 year old female admitted for uncomplicated diverticulitis. Admission day 3, reports she is feeling better, continuing to improve overall. Has been feeling like her blood pressure is low. This appears to be intermittent mild hypotension. May be related to low p.o. intake, narcotics. She looks well. Denies nausea or vomiting today. Passing gas, no BM. On exam remains tender in LLQ, otherwise soft and benign. Am labs pending. Will try advancing diet today, full liquid diet, emphasized taking things slow with advancing diet. Patient understands and agrees Trial full liquid diet, slowly advance continue IV abx recommended ambulation outpt f/u for hernia, colonoscopy after 6 weeks Time Spent With Patient Time: Total time managing care of this patient today ____ minutes. Quality Stroke Does the patient have a stroke diagnosis?: No VTE Prior VTE?: No VTE Risk Level:: Medical - moderate - high VTE Device Contraindication: N/A - Device Ordered VTE Drug Contraindication: N/A - Med Ordered
--- NOTE | 2025-05-01 10:03 | P.CDIM_ITS ---
PROVIDER RESPONSE TEXT: To clarify, the appropriate diagnosis supported by the clinical indicators: Overweight QUERY TEXT: PHYSICIAN'S DOCUMENTATION REQUEST Date of Query: 05/01/2025 09:52 AM EST Patient Name: Joaquin Crenshaw Admit Date: 04/28/2025 Dear Steve Medina PA-C, A review of the medical record indicates additional documentation may be needed. Please review below and update the documentation accordingly. Clinical Indicators: Height: ( ) 5'5 Weight: ( ) 111kg BMI: ( ) 40.7 Other Clinical Notes Supporting Significance of the BMI: on therapeutic diet If possible, please provide an associated diagnosis related to the abnormal BMI, such as: Overweight Obesity Due to excess calories Obesity Drug induced Obesity Due to other cause Specify the other cause Severe or Morbid Obesity With alveolar hypoventilation Severe or Morbid Obesity Without alveolar hypoventilation BMI is not significant Other (explain) Clinically unable to determine (explain) Thank you, Cass Tao RN Use of terms such as suspected, likely, concern for, or probable (associated with a specific diagnosis that is being evaluated, monitored, or treated as if it exists) are acceptable and can be coded in the inpatient setting, when documented at the time of discharge. Please use your independent medical judgment in providing your response. THIS QUERY IS PART OF THE PERMANENT MEDICAL RECORD
[2025-05-01] MEDS: metroNIDAZOLE/NS 500 MG/100 ML PIGGYBACK IV (15:23)
[2025-05-01 15:46] VITALS: BP 132/65; PULSE 73; RESP 18; TEMP 36.6; O2SAT 99
--- NOTE | 2025-05-01 16:25 | MHC.CM.PN ---
DX Diverticulitis, medically treated. Patient is not medically cleared for discharge today. DP Home self care, SO will provide transport home.
[2025-05-01 19:06] VITALS: BP 129/60; PULSE 64; RESP 18; TEMP 36.3; O2SAT 98
[2025-05-02 03:39] VITALS: BP 126/64; PULSE 66; RESP 18; TEMP 36.3; O2SAT 96
[2025-05-02] MEDS: metroNIDAZOLE/NS 500 MG/100 ML PIGGYBACK 100 MG IV (05:15)
[2025-05-02 06:49] VITALS: BP 134/81; PULSE 73; RESP 16; TEMP 36.6; O2SAT 100
--- NOTE | 2025-05-02 14:10 | P.DS_ITS ---
DS: Providers Provider Date of Service: 05/02/25 Date of admission: 04/28/25 16:56 Date of discharge: 05/02/25 Primary care physician: Roby Elise MD Admitting clinician: Martha Castillo Attending physician on discharge: Martha Castillo DS: Diagnosis Discharge Diagnosis (1) Diverticulitis of descending colon: Status: Acute DS: Summary Hospital Course Hospital Course: Pt is a 44 year old female who was admitted with acute diverticulitis due to constipation - she did well with bowel rest and then iv antibiotics switched to po - cipro and flagyl. she is tolerating po ilquids and solids and will be dc home on po meds with plan to fu as outpt and then set up for Cscope and evaluation thereafter. She understands and agrees with the plan Status at Discharge Cognitive/behavioral status at discharge: good Time Attestation Total time managing care of this patient today: 25 mintues. Discharge Coordination Time (in mins): 25 Quality: Safe Use of Opioids Does Pt have an Active Cancer Diagnosis on the Problem List?: No Quality: Stroke Does the patient have a stroke diagnosis?: No Physical Exam Vital Signs: Vital Signs: Last Vital Signs Temp 98 F 05/02/25 06:49 Pulse 73 05/02/25 06:49 Resp 16 05/02/25 06:49 BP 134/81 05/02/25 06:49 Pulse Ox 100 05/02/25 06:49 O2 Del Method Room Air 05/02/25 06:49 O2 Flow Rate 95 04/30/25 19:28 BMI result Body Mass Index 40.7 Const: General: cooperative, healthy appearing, comfortable and no acute distress GI: Other: soft nontender nondistended DS: Data Data Completed and Pending Labs on day of discharge: Preliminary micro results at discharge 04/28/25 14:26 Blood Culture - Preliminary Blood - Venous No growth after 48 hours. 04/28/25 14:26 Blood Culture - Preliminary Blood - Venous No growth after 48 hours. Discharge Plan Discharge Anticipated Discharge Date/Time: 05/02/25 15:00 Patient Disposition: Home, Self-Care Discharge Diagnosis: Acute diverticulitis Referrals: Roby Elise MD [Primary Care Provider, Internal Medicine] - 1 Week Carlos Amor MD [Physician, General Surgery] - 2 Weeks Discharge Medications: New levofloxacin 500 mg tablet 500 mg PO DAILY Qty: 7 0RF metronidazole 500 mg tablet 500 mg PO BID Qty: 14 0RF Continued omeprazole 20 mg capsule,delayed release(DR/EC) 20 mg PO DAILY@0630 omega-3 fatty acids 1,000 mg Capsule 1,000 mg PO DAILY multivitamin Tablet 1 tab PO DAILY cyanocobalamin (vitamin B-12) 1,000 mcg tablet 1,000 mcg PO DAILY Qty: 1 0RF cholecalciferol (vitamin D3) 10 mcg (400 unit) capsule 10 mcg PO DAILY Qty: 1 0RF ascorbic acid (vitamin C) 500 mg tablet 500 mg PO DAILY Qty: 30 0RF Rx Instructions: Take with iron for better iron absorption ferrous sulfate [iron] 325 mg (65 mg iron) tablet 325 mg PO DAILY Qty: 30 2RF (DME) blood pressure kit See Rx Instructions .Route .MEDSUPPLY Qty: 1 0RF Rx Instructions: As directed Discharge Orders: Discharge Order (Routine); Ordered 05/02/25 Ordered By: Martha Castillo Diet: low residue/diverticular Activity on Discharge: No Restrictions Stand Alone Forms: Patient Portal Discharge page Print Language: [place] Care Plan Goals: follow up in the office in 1-2 weeks to discuss colonoscopy and hernia call [phone] for an appt Health Concerns: diverticulitis umbilical hernia Plan of Treatment: Continue oral antibiotics Follow up in the office Assessment: Doing well clinically
[2025-05-02 14:28] VITALS: BP 123/83; RESP 16; TEMP 36.4; O2SAT 99
[2025-05-02 14:32] VITALS: PULSE 76
== END 2025-05-02 14:34 | disposition home or self-care (01) | DRG 244 ==
LOC: HO.ED 16:38 → HO.EDOVER 17:00 → HO.S3 17:14
PROVIDERS: Emergency Provider Emergency Medicine Emergency Medical Services; PCP Student in an Organized Health Care Education/Training Program
DX: K57.32 Diverticulitis of large intestine without perforation or abscess without bleeding (principal); E66.3 Overweight; K59.00 Constipation, unspecified; Z20.822 Contact with and (suspected) exposure to COVID-19; Z68.41 Body mass index [BMI] 40.0-44.9, adult; Z98.84 Bariatric surgery status; Z79.899 Other long term (current) drug therapy
CPT/HCPCS: 36415; 71046; 74177; 80048; 80076; 81003; 81025; 82947; 83605; 83690; 84443; 85025; 85027; 87040; 87637; 99285; J1171; J1200; J1836; J1956; J2270; J2405; J7120; Q9967

== ENCOUNTER → 2025-04-28 11:14 | Outpatient (BNV) | payer OTHER, SELFPAY | PROVIDERS: Emergency Provider Emergency Medicine Emergency Medical Services; PCP Student in an Organized Health Care Education/Training Program; Visit Provider Radiology Diagnostic Radiology | DX: K57.30 Diverticulosis of large intestine without perforation or abscess without bleeding (principal); K42.9 Umbilical hernia without obstruction or gangrene; K44.9 Diaphragmatic hernia without obstruction or gangrene; E27.9 Disorder of adrenal gland, unspecified; M51.379 Other intervertebral disc degeneration, lumbosacral region without mention of lumbar back pain or lower extremity pain; M47.817 Spondylosis without myelopathy or radiculopathy, lumbosacral region; R05.9 Cough, unspecified; R10.32 Left lower quadrant pain; M47.815 Spondylosis without myelopathy or radiculopathy, thoracolumbar region | CPT/HCPCS: 71046; 74177 ==

== ENCOUNTER → 2025-04-28 16:56 | Outpatient (BNV) | payer OTHER, SELFPAY | PROVIDERS: Emergency Provider Emergency Medicine Emergency Medical Services; PCP Student in an Organized Health Care Education/Training Program | DX: K57.32 Diverticulitis of large intestine without perforation or abscess without bleeding (principal) | CPT/HCPCS: 99238 ==

== ENCOUNTER 2025-05-05 13:25 | Outpatient (AMB) | payer OTHER, SELFPAY ==
--- NOTE | 2025-05-05 13:35 | A.OFFPC_ITS ---
Vital Signs 05/05/25 13:40 Weight 239 lb BP 136/72 Blood Pressure Location Rt radial Position Sitting Respiration 18 Pulse 74 Pulse Source Monitor Temp 98.1 F Temp Source Oral Pulse Oximetry (%) 99 Oxygen Delivery Method Room Air Intake Visit Reasons: follow up acute diverticulitis Intake Note: Dr. Elise speaks Japanese, no rural mail contractor needed. Cryptologic Technician Required: No Accompanied by: Self / Same As Patient Allergies Penicillins Allergy (Severe, Verified 05/05/25 13:38) Anaphylaxis shellfish derived (shellfish) Allergy (Severe, Verified 05/05/25 13:38) Anaphylaxis Medication List - Last Reconciled 05/05/25 by Roby Elise MD ascorbic acid (vitamin C) 500 mg PO DAILY [blood pressure kit As directed] cholecalciferol (vitamin D3) 10 mcg PO DAILY cyanocobalamin (vitamin B-12) 1,000 mcg PO DAILY ferrous sulfate (iron) 325 mg PO DAILY levofloxacin 500 mg PO DAILY metronidazole 500 mg PO BID multivitamin 1 tab PO DAILY omega-3 fatty acids 1,000 mg PO DAILY omeprazole 20 mg PO DAILY@0630 Tobacco use date assessed: 02/17/25 Dental Screening Dental Screen Date: 05/05/25 Did you have a dental visit in the last 12 months?: No Did you have a dental problem in the last 6 months where you did not have access to dental care?: No Was dental information given to patient?: No HPI HPI Comments History of Present Illness Details History of Present Illness The patient is a 44-year-old individual presenting for follow-up after hospitalization for acute diverticulitis. Acute Diverticulitis: The patient was hospitalized from the to the of the month for acute diverticulitis. Prior to hospitalization, the patient felt very ill during a weight loss appointment on Sunday and went to the emergency room. The patient was sent home with antibiotics and is still taking them. Hernia: An umbilical hernia was mentioned during the patient's recent hospitalization. The patient reports confusion regarding this, attributing prior pain to a hernia behind the stomach. Medications: - Unspecified antibiotics for acute dive rticulitis; the patient has not yet finished the course. Social History: - The patient reported a past issue with food access at home but stated it has been resolved. - The patient's partner is unemployed. Past Medical History - Hospitalization for acute diverticulit is from the to the . - History of umbilical hernia mentioned during hospitalization. Health Maintenance - Follow-up scheduled with a general ferny nuñez. - An endoscopy with Dr. Morel is [facility] eduled at the end of May. - A colonoscopy with Dr. Amor is [facility] eduled in several weeks. [facility] Medical History (Updated 05/05/25 @ 16:06 by Roby Elise MD) Hernia Hyperlipidemia GERD (gastroesophageal reflux disease) BMI 38.0-38.9,adult Vitamin D insufficiency PTSD (post-traumatic stress disorder) Epigastric pain Severe obesity LUIS FERNANDO (obstructive sleep apnea) Depression Panic disorder Morbid obesity Abdominal pain Surgical History H/O colonoscopy S/P laparoscopic surgery H/O endoscopy Hx laparoscopic cholecystectomy Bariatric surgery status S/P gastric sleeve procedure Family History Father High cholesterol High triglycerides High blood pressure Stroke Mother Uterus cancer High blood pressure Glaucoma (increased eye pressure) Lupus (systemic lupus erythematosus) Social History (Updated 05/05/25 @ 13:39 by Ernst De La Garza CMA) Household Members: Family Housing: House Do you presently have visiting nurse or other home services: No Alcohol intake: current Alcohol intake frequency: does not drink Patient Tobacco Use Status: Never used Tobacco e-Cigarette/Vaping Use: Never Used service: No Current occupational status: employed Cognitive needs: No Hearing needs: No Vision needs: No Questionnaire Thrive Questionnaire Date Thrive assessed: 02/17/25 I am a: Patient What is your living situation today?: I have a place to live, but I am worried about losing it in the future Within the past 12 months, did the food you bought not last and you didn't have the money to get more?: Sometimes True Within the past 12 months, did you worry whether your food would run out before you got money to buy more?: Sometimes True Do you have trouble paying for medicines?: Yes Do you have trouble getting transportation to medical appointments?: Yes Do you have trouble paying your heating and electricity bill?: Yes Do you have trouble taking care of your child, family member or friend?: No Do you have trouble with day-to-day activities such as bathing, preparing meals, shopping, managing finances, etc.?: No Are you currently unemployed and looking for a job?: I choose not to answer this question Are you interested in more education?: Yes Currently or been in a relationship where the following occur: No concerns reported THRIVE Score: 5 QASIM-7 AMB Questionnaire QASIM-7 Date QASIM - 7 assessed: 02/17/25 Source: Developed by Drs. Magdi Simon, Kinga Loza, Neymar Pierson and colleagues, with an educational ritu from [employer]. Review of Systems Narrative Review of Systems - Constitutional: Reports feeling unwell recently leading to an emergency room visit. - Gastrointestinal: Reports recent hospitalization for acute diverticulitis and prior pain thought to be from a hernia behind the stomach. 10-point ROS reviewed and negative except as noted in HPI Physical exam (Primary Care) Vital Signs: Last Vital Signs Temp 98.1 F 05/05/25 13:40 Pulse 74 05/05/25 13:40 Resp 18 05/05/25 13:40 BP 136/72 05/05/25 13:40 Pulse Ox 99 05/05/25 13:40 Oxygen Delivery Method Room Air 05/05/25 13:40 Tobacco/Smoking Status: Tobacco use Status Tobacco use date assessed 02/17/25 05/05/25 13:35 Patient Tobacco Use Status Never used Tobacco 05/05/25 13:39 e-Cigarette/Vaping Use Never Used 05/05/25 13:42 Thrive Assessment: Date of Thrive Assessment Date Thrive assessed 02/17/25 05/05/25 13:35 Currently or been in a relationship where the following occur: No concerns reported Narrative Physical Exam General: Well-appearing, in no acute distress. Vital signs: Within normal limits. HEENT: Normocephalic, atraumatic. PERRLA, EOMI. Conjunctiva clear, sclera anicteric. Oropharynx clear, mucous membranes moist. TMs intact bilaterally. Neck: Supple, no lymphadenopathy, no thyromegaly, no JVD or carotid bruits. Cardiovascular: RRR, normal S1/S2, no murmurs, rubs, or gallops. Peripheral pulses 2+ and symmetric. No edema. Respiratory: Lungs clear to auscultation bilaterally, no wheezes, rales, or rhonchi. Normal effort. Abdomen: Soft, non-tender, non-distended. Normoactive bowel sounds. No hepatosplenomegaly, no masses. Hernia noted in the umbilical region. MSK: Full range of motion, no joint swelling or deformity. Normal gait. Skin: Warm, dry, intact. No rashes, lesions, or pallor. Neuro: Alert and oriented x3. Cranial nerves II-XII intact. Strength 5/5 throughout. Sensation intact. Reflexes 2+ symmetric. Normal coordination and gait. Psych: Appropriate mood and affect. Normal judgment and insight. Coding Level of Care Code TCM Mod MDM <= 7 Days Diagnoses Diverticulitis of descending colon K57.32 Hernia K46.9 BMI 38.0-38.9,adult Z68.38 Adrenal mass E27.8 Assessment & Plan Assessment & Plan (1) Diverticulitis of descending colon: Code(s): K57.32 - Diverticulitis of large intestine without perforation or abscess without bleeding Category: Medical (2) Hernia: Code(s): K46.9 - Unspecified abdominal hernia without obstruction or gangrene Category: Medical (3) BMI 38.0-38.9,adult: Code(s): Z68.38 - Body mass index [BMI] 38.0-38.9, adult Category: Medical (4) Adrenal mass: Code(s): E27.8 - Other specified disorders of adrenal gland Category: Medical Plan Consent Patient was informed and verbally consented to the use of an ambient scribe for clinic note documentation during this visit. Plan 1. Acute Diverticulitis - The patient will continue with the current course of antibiotics until finished. - The patient will follow up with the general surgeon as planned. - A colonoscopy is scheduled to be performed by Dr. Amor in a few weeks. 2. Hernia - The patient will follow up with the general surgeon for evaluation of a possible umbilical hernia and to clarify the source of abdominal pain. - An endoscopy is scheduled with Dr. Morel at the end of May for further evaluation. Discussion Notes I reviewed the patient's recent hospitalization for acute diverticulitis and advised the patient to complete the course of antibiotics. We discussed the scheduled follow-up with the general surgeon, who will address the patient's questions about a hernia. I also noted the upcoming endoscopy and colonoscopy for further gastrointestinal evaluation. Patient Instructions - Be sure to finish your entire course of antibiotics. - Go to your scheduled follow-up appointment with the general surgeon. - The surgeon will evaluate you and answer your questions about a possible hernia. - You have an endoscopy scheduled for the end of May. - You will also have a colonoscopy performed in the next several weeks. Medical Decision Making The patient is a 44-year-old individual presenting for follow-up after a recent hospitalization for acute diverticulitis. The patient is recovering and is compl iant with the prescribed antibiotic therapy. The management plan includes completion of antibiotics and appropriate specialty follow-up. The patient has a scheduled appointment with a general surgeon to address the diverticulitis and evaluate a possible hernia, which was a point of confusion for the patient. Further gastrointestinal workup is planned with an endoscopy and a colonoscopy, which are appropriate next steps for comprehensive evaluation. Total Time Statement 20 min Total time spent caring for the patient today includes pre-visit chart review, documentation, review of laboratory and diagnostic imaging results, medication reconciliation, medically necessary evaluation, counseling on diagnoses, care coordination, ordering appropriate tests and medications, review of tests performed by other providers, reporting test results to the patient, and communication with other healthcare providers. Orders: Referrals Nurse Navigator Referral Z59.41 - Food insecurity, Z59.819 - Housing instability, housed unspecified
[2025-05-05 13:40] VITALS: BP 136/72; PULSE 74; RESP 18; TEMP 36.7; O2SAT 99
--- OUTSIDE RECORDS SUMMARY | 2025-05-05 17:20 | XMS_ITS | Encounter Summary ---
Author Organization [facility] [employer] [facility] and [facility] Address [address] [place] [address] Care Team Providers Care Executive Marketing Assistant Name Role Phone Ivone Brown Primary Care Provider [phone] Encounter Details Date Type Department Care Team (Late st Contact Info) Description 08/23/2020 Scanned Document [facility] [address] [facility] [address] [facility] [address] [place] [address] Perla Gomez PA [address] [place] [address] Social History Tobacco Use Types [...] documented as of this encounter Care Teams Executive Marketing Assistant Relationship Specialty Start Date End Date Ivone Brown PA [address] [place] [address] PCP - General Physician Automotive General Manager 08/04/24 documented as of this encounter
--- OUTSIDE RECORDS SUMMARY | 2025-05-05 17:20 | XMS_ITS | Encounter Summary ---
Author Organization Located [facility] Care Address [address] [place] [address] Phone Care Team Providers Care Sql Bi Developer Name Role Phone Ivone Brown Primary Care Provider [phone] Encounter Details Date Type Department Care Team (Late st Contact Info) Description 08/05/[address] [facility] [address] [place] [address] Edna Downs LMSW Social History Tobacco Use [...] documented as of this encounter Care Teams Sql Bi Developer Relationship Specialty Start Date End Date Ivone Brown PA [address] [place] [address] PCP - General Physician Top Knitter 08/04/24 documented as of this encounter
--- OUTSIDE RECORDS SUMMARY | 2025-05-05 17:20 | XMS_ITS | Encounter Summary ---
Author Organization [facility] Address [address] [place] [address] Phone Care Team Providers Care Scrap Cutter Name Role Phone Ivone Brown Primary Care Provider [phone] Reason for Visit * Reason Comments Medication Refill Encounter Details Date Type Department Care Team (Late st Contact Info) Description 03/03/2022 Refill [facility] [address] [address] Shannon Nunn MD [address] [place], [place] [phone] Medication Refill Social History Tobacco Use Types [...] documented as of this encounter Care Teams Scrap Cutter Relationship Specialty Start Date End Date Ivone Brown PA [address] [place] [address] PCP - General Physician Silk Winding Machine Operator 08/04/24 documented as of this encounter
--- OUTSIDE RECORDS SUMMARY | 2025-05-05 17:20 | XMS_ITS | Encounter Summary ---
Author Organization [facility] Address [address] [place] [address] Phone Care Team Providers Care Farm Equipment Engine Mechanic Name Role Phone Ivone Brown Primary Care Provider [phone] Reason for Visit * Reason Comments Medication Refill Encounter Details Date Type Department Care Team (Late st Contact Info) Description 02/13/2023 [place] [address] Shannon Nunn MD [address] [place], [place] [phone] Medication Refill Social History Tobacco Use Types [...] documented as of this encounter Care Teams Farm Equipment Engine Mechanic Relationship Specialty Start Date End Date Ivone Brown PA [address] [place] [address] PCP - General Physician Livestock Farm Manager 08/04/24 documented as of this encounter
--- OUTSIDE RECORDS SUMMARY | 2025-05-05 17:20 | XMS_ITS | Encounter Summary ---
Author Organization [facility] [employer] [facility] and [facility] Address [address] [place] [address] Care Team Providers Care Wildlife Conservation Professor Name Role Phone Ivone Brown Primary Care Provider [phone] Reason for Visit * Reason Comments Medication Refill Encounter Details Date Type Department Care Team (Late st Contact Info) Description 09/26/2021 Refill [facility] [address] [address] Sanjuanita Sharp PA [address] [place] [address] Medication Refill Social History Tobacco [...] documented as of this encounter Care Teams Wildlife Conservation Professor Relationship Specialty Start Date End Date Ivone Brown PA [address] [place] [address] PCP - General Physician Corn Popper 08/04/24 documented as of this encounter
--- OUTSIDE RECORDS SUMMARY | 2025-05-05 17:20 | XMS_ITS | Encounter Summary ---
Author Organization [facility] [employer] [facility] and [facility] Address [address] [place] [address] Care Team Providers Care Meat And Poultry Inspector Name Role Phone Ivone Brown Primary Care Provider [phone] Reason for Visit * Reason Comments Medication Refill Encounter Details Date Type Department Care Team (Late st Contact Info) Description 10/22/2021 Refill [facility] [address] [address] Sanjuanita Sharp PA [address] [place] [address] Medication Refill Social History Tobacco [...] as of this encounter Care Teams Meat And Poultry Inspector Relationship Specialty Start Date End Date Ivone Brown PA [address] [place] [address] PCP - General Physician Emt P 08/04/24 documented as of this encounter
--- OUTSIDE RECORDS SUMMARY | 2025-05-05 17:20 | XMS_ITS | Encounter Summary ---
Author Organization [facility] Home [facility] Address [address] [place] [address] Care Team Providers Care Repairer Kiln Car Name Role Phone Ivone Brown Primary Care Provider [phone] Reason for Visit * Reason Comments Medication Refill Encounter Details Date Type Department Care Team (Late st Contact Info) Description 03/03/2022 Refill [facility] [place] [address] [address] Perla Gomez PA [address] [place] [phone] Medication Refill Social History Tobacco Use [...] documented as of this encounter Care Teams Repairer Kiln Car Relationship Specialty Start Date End Date Ivone Brown PA [address] [place] [address] PCP - General Physician Coil Winding Supervisor 08/04/24 documented as of this encounter
--- OUTSIDE RECORDS SUMMARY | 2025-05-05 17:20 | XMS_ITS | Encounter Summary ---
Author Organization [facility] [employer] [facility] and [facility] Address [address] [place] [address] Care Team Providers Care Legal Receptionist Name Role Phone Ivone Brown Primary Care Provider [phone] Reason for Visit * Reason Comments Medication Refill Encounter Details Date Type Department Care Team (Late st Contact Info) Description 11/22/2021 Refill [facility] [address] [address] Sanjuanita Sharp PA [address] [place] [address] Medication Refill Social History Tobacco [...] documented as of this encounter Care Teams Legal Receptionist Relationship Specialty Start Date End Date Ivone Brown PA [address] [place] [address] PCP - General Physician Crotch Breaker 08/04/24 documented as of this encounter
--- OUTSIDE RECORDS SUMMARY | 2025-05-05 17:20 | XMS_ITS | Encounter Summary ---
Author Organization [facility] and Home Health Address [address] [place] [address] Care Team Providers Care Imaging Science Professor Name Role Phone Ivone Brown Primary Care Provider [phone] Reason for Visit * Reason Comments Medication Refill Encounter Details Date Type Department Care Team (Late st Contact Info) Description 01/19/2022 Refill [facility] [place] [address] [address] Perla Gomez PA [address] [place] [phone] Medication Refill Social History Tobacco Use [...] documented as of this encounter Care Teams Imaging Science Professor Relationship Specialty Start Date End Date Ivone Brown PA [address] [place] [address] PCP - General Physician Section Cutter 08/04/24 documented as of this encounter
--- OUTSIDE RECORDS SUMMARY | 2025-05-05 17:20 | XMS_ITS | Encounter Summary ---
Author Organization [facility] [employer] [facility] and [facility] Address [address] [place] [address] Care Team Providers Care Document Design Specialist Name Role Phone Ivone Brown Primary Care Provider [phone] Reason for Visit * Reason Onset Date Comments Medication Refill 07/10/2023 Encounter Details Date Type Department Care Team (Late st Contact Info) Description 07/10/2023 Refill [facility] at [address] [place], [place] [address] Zaheer Mcdaniel MD MPH [address] [place] [address] Medication Refill Social History Tobacco [...] documented as of this encounter Care Teams Document Design Specialist Relationship Specialty Start Date End Date Ivone Brown PA [address] [place] [address] PCP - General Physician Free Lance Artist 08/04/24 documented as of this encounter
--- OUTSIDE RECORDS SUMMARY | 2025-05-05 17:20 | XMS_ITS | Encounter Summary ---
Author Organization [facility] ou and Home Health Address [address] [place] [address] Care Team Providers Care Data Processing Systems Project Planner Name Role Phone Ivone Brown Primary Care Provider [phone] Reason for Visit * Reason Comments Medication Refill Encounter Details Date Type Department Care Team (Late st Contact Info) Description 01/06/2022 Refill [facility] [place] [address] [address] Perla Gomez PA [address] [place] [phone] Medication Refill Social History Tobacco Use [...] documented as of this encounter Care Teams Data Processing Systems Project Planner Relationship Specialty Start Date End Date Ivone Brown PA [address] [place] [address] PCP - General Physician Muck Hauler 08/04/24 documented as of this encounter
--- OUTSIDE RECORDS SUMMARY | 2025-05-05 17:20 | XMS_ITS | Encounter Summary ---
Author Organization [facility] [employer] [facility] and [facility] Address [address] [place] [address] Care Team Providers Care Cardiology Clinical Consultant Name Role Phone Ivone Brown Primary Care Provider [phone] Reason for Visit * Reason Comments Medication Refill Encounter Details Date Type Department Care Team (Late st Contact Info) Description 08/20/2021 Refill [facility] [address] [address] Sanjuanita Sharp PA [address] [place] [address] Medication Refill Social History Tobacco [...] documented as of this encounter Care Teams Cardiology Clinical Consultant Relationship Specialty Start Date End Date Ivone Brown PA [address] [place] [address] PCP - General Physician Automotive Window Tinter 08/04/24 documented as of this encounter
--- OUTSIDE RECORDS SUMMARY | 2025-05-05 17:20 | XMS_ITS | Patient Health Record ---
Author Organization [facility], Address [address] [place] [address] Support Name Relationship Address Phone Joaquin Crenshaw Guarantor Unknown Reason For Referral No Information Problems No Known Problems Plan Of Treatment No Information Insurance Providers Payer Name Payer Address Payer Phone Subscriber Number Group Number Insured Name Patient Relationship to Insured Coverage Start Date Coverage End Date [employer] [place] [address] [place] [address] [id number] Joaquin Crenshaw Self - patient is the insured
--- OUTSIDE RECORDS SUMMARY | 2025-05-05 17:20 | XMS_ITS | Encounter Summary ---
Author Organization [facility] Address [address] [place] [address] Phone Care Team Providers Care Advertising Editor Name Role Phone Ivone Brown Primary Care Provider [phone] Reason for Visit * Reason Comments Medication Refill Encounter Details Date Type Department Care Team (Late st Contact Info) Description 01/19/2022 Refill [facility] [address] [address] Shannon Nunn MD [address] [place], [place] [phone] Medication Refill Social History Tobacco Use Types [...] documented as of this encounter Care Teams Advertising Editor Relationship Specialty Start Date End Date Ivone Brown PA [address] [place] [address] PCP - General Physician Splunk Developer 08/04/24 documented as of this encounter
--- OUTSIDE RECORDS SUMMARY | 2025-05-05 17:20 | XMS_ITS | Clinical Summary ---
Author Organization [address] Address [address] [place] [phone] Phone Care Team Providers Care Business Partner Name Role Phone Ivone Brown Primary Care Provider [phone] Allergies Active Allergy Reactions Criticality Noted Date Comments Asa-Calcium Nqab-Qpq-Uoxijxxy Shortness Of Breath High 01/14/2019 Aspirin 01/17/2019 [...] your living situation today? I have a [facility] place to live 08/04/2024 Housing Stability [...] 136 - 144 mmol/L 03/27/2024 10:00 AM [facility] Potassium 3.9 3.3 - 5.3 mmol/L 03/27/2024 10:00 AM T [facility] Chloride 106 98 - 107 mmol/L 03/27/2024 10:00 AM T [facility] CO2 28 20 - 30 mmol/L 03/27/2024 10:00 AM [facility] Anion Gap 6(L) 7 - 17 03/27/2024 10:00 AM [facility] Glucose 88 70 - 100 mg/dL 03/27/2024 10:00 AM [facility] BUN 15 6 - 20 mg/dL 03/27/2024 10:00 AM [facility] Creatinine 0.67 0.40 - 1.30 mg/dL 03/27/2024 10:00 AM [facility] Calcium 8.8 8.8 - 10.2 mg/dL 03/27/2024 10:00 AM [facility] BUN/Creatinine Ratio 22.4 8.0 - 23.0 03/27/2024 10:00 AM [facility] Total Protein 6.6 5.9 - 8.3 g/dL 024 10:00 AM [facility] Comment:As of 2023, th e reference interval for Total Protein has been changed from (6.6 to 8.7 g/dL) to (5.9 to 8.3 g/dL). Albumin 3.5(L) 3.6 - 5.1 g/dL 03/27/2024 10:00 AM [facility] Comment:As of 2023, th e reference interval for Albumin has been changed from (3.6 to 4.9 g/dL) to (3.6 to 5.1 g/dL). Total Bilirubin 0.4 <=1.2 mg/dL 03/27/20 24 10:00 AM [facility] Alkaline Phosphatase 67 9 - 122 U/L 03/27/2024 10:00 AM [facility] Alanine Aminotransferase (ALT) 16 10 - 35 U/L 03/27/2024 10:00 AM [facility] Comment:Calcium dobesilate c an cause artificially low ALT results at therapeutic concentrations Aspartate Aminotransferase (AST) 20 10 - 35 U/L 03/27/2024 10:00 AM [facility] Globulin 3.1 2.0 - 3.9 g/dL 03/27/2024 10:00 AM [facility] Comment:As of 2023, th e reference interval for Globulin has been changed from (2.3 to 3.5 g/dL) to (2.0 to 3.9 g/dL). A/G Ratio 1.1 1.0 - 2.2 03/27/2024 10:00 AM [facility] AST/ALT Ratio 1.3 Reference Range Not Established 03/27/2024 10:00 AM [facility] eGFR (Creatinine) >60 >=60 mL/min/1.73m2 03/27/2024 10:00 AM EDT [facility] Comment: [facility] utilizes CKD-EPI Creatinine 2020 to report eGFR. Values < 60 mL/min/1.73 m2 may indicate CKD if present for more than three months AND creatinine is at steady state. The eGFR provides a rough estimate of kidney function. For further guidance, please refer to the CKD: Adult [employer] Port[employer] Machine Signature pathway. Blood Venipuncture / Unknown 03/27/2024 9:23 AM EDT 03/27/2024 9:33 AM EDT us Breana Estrada MD LAB BLOOD ORDERABLES Fin al Result [address] [phone] * Colonoscopy (02/22/2021 7:24 AM EDT) Colonoscopy Endoscopy Patient Name: Joaquin De León Procedure Date: 02/22/2021 7:24 AM Date of : 1980 Age: 40 Gender: Female Admit Type: Outpatient [facility] #: [id number] Note Status: Finalized Attending MD: Radha Mckeon [...] oxygen saturations were monitored continuously. The [id number] was introduced through the anus and advanced to the cecum, identified by appendiceal orifice and ileocecal valve. The colonoscopy was performed without difficulty. The patient tolerated the procedure well. The quality of the bowel preparation was evaluated using the BBPS ([place] Bowel Preparation Scale) with scores of: Right [...] pathology results. Procedure Code(s): --- Professional --- 34609, Colonoscopy, flexible; with removal of tumor(s), polyp(s), or other lesion(s) by snare technique Diagnosis Code(s): --- Professional --- Z80.0, Family history of malignant neoplasm of digestive organs K63.5, Polyp of colon K64.8, Other hemorrhoids K57.30, Diverticulosis of large intestine without perforation or abscess without bleeding CPT copyright 2020 [employer]. All rights reserved. The codes documented in this report are preliminary and upon cutter v groove review may be revised to meet current compliance requirements. Attending Participation: I was present and participated during the entire procedure, including non-carrasquillo portions. ___ Radha Mckeon MD 02/22/2021 1:44:31 PM This report has been signed electronically. Number of Addenda: 0 Note Initiated On: 02/22/2021 7:24 AM Estimated Blood Loss: Estimated blood loss was minimal. Scope In: Scope Out: [facility] 02/22/2021 7:24 AM EDT us Shannon Nunn MD GI PROCEDURE ORDERABLES Final Result [facility] * Cholesterol, total (01/24/2021 10:51 AM EDT) Cholesterol, Total 147 <200 mg/dL [facility] Blood 01/24/2021 10:5 1 AM EDT 01/24/2021 10:52 AM EDT Narrative [facility] - 01/29/2021 11:40 AM EDT FASTING:YES FASTING: YES Resulting Agency Comment Performing Lab: Site ID: [id number] Name: [facility] Address: [address] [place] [address], [place] [address] Director: Bianca Senior M.D. us Zaheer Mcdaniel MD MPH LAB BLOOD ORDERABLES Final Result Performing Organization Address City/[facility] Co de Phone Number [facility] [address] [place] [address] from Last 3 Months or Most Recently Relevant to Health Maintenance Insurance [place] Advance Directives * Full ACLS (Latest Code Status on File) Date Activated Date Inactivated Comments 01/17/2022 6:12 PM 01/20/2022 2:42 PM Care Teams Business Partner Relationship Specialty Start Date End Date Ivone Brown PA [address] [place] [address] PCP - General Physician Self Propelled Dredge Operator 08/04/24
--- OUTSIDE RECORDS SUMMARY | 2025-05-05 17:20 | XMS_ITS | Encounter Summary ---
Author Organization [facility] Address [address] [place] [address] Phone Care Team Providers Care Fire Marshal Refinery Name Role Phone Ivone Brown Primary Care Provider [phone] Reason for Visit * Reason Comments Medication Refill Encounter Details Date Type Department Care Team (Late st Contact Info) Description 03/06/2023 [place] [address] Shannon Nunn MD [address] [place], [place] [phone] Medication Refill Social History Tobacco Use Types [...] documented as of this encounter Care Teams Fire Marshal Refinery Relationship Specialty Start Date End Date Ivone Brown PA [address] [place] [address] PCP - General Physician Urban Planning Teacher 08/04/24 documented as of this encounter
--- OUTSIDE RECORDS SUMMARY | 2025-05-05 17:20 | XMS_ITS | Encounter Summary ---
Author Organization [facility] [employer] [facility] and [facility] Address [address] [place] [phone] Care Team Providers Care Inlayer Name Role Phone Ivone Brown Primary Care Provider [phone] Encounter Details Date Type Department Care Team (Latest Contact Info) Description 01/05/2022 Transcribed Orders [place] [address] Zaheer Mcdaniel MD MPH [address] [facility] [[email or web address]] [address] [place] [address] Severe obesity (HC Code) (HC [...] 8:42 AM EDT) Heart Rate 66 bpm [facility] ECG QRS Duration 90 ms [facility] ECG Q-T Interval 412 ms [facility] ECG QTC Calculation(Be zet) 431 ms [facility] ECG P [place] 41 deg [facility] ECG R [place] 70 deg [facility] ECG T [place] 31 deg [facility] ECG P-R Interval 150 msec [facility] ECG SEVERITY Normal ECG severity [facility] ECG Comment::Normal sinus rhythm :Normal ECG:Electronically Signed On 01-05-2022 18:52:20 EDT by AR METZ MD 01/05/2022 8:42 AM EDT us Zaheer Mcdaniel MD MPH ECG ORDERABLES Final Resul t [facility] ECG documented in this encounter Visit [...] documented as of this encounter Care Teams Inlayer Relationship Specialty Start Date End Date Ivone Brown PA [address] [place] [phone] PCP - General Physician Psychology Fellow 08/04/24 documented as of this encounter
--- OUTSIDE RECORDS SUMMARY | 2025-05-05 17:20 | XMS_ITS | Encounter Summary ---
Author Organization [facility] [employer] [facility] and [facility] Address [address] [place] [phone] Care Team Providers Care Dye House Worker Name Role Phone Ivone Brown Primary Care Provider [phone] Encounter Details Date Type Department Care Team (Late st Contact Info) Description 10/04/2020 Scanned Document [facility] at [address] [place], [place] [address] Zaheer Mcdaniel MD MPH [address] [place] [address] Social History Tobacco Use Types [...] documented as of this encounter Care Teams Dye House Worker Relationship Specialty Start Date End Date Ivone Brown PA [address] [place] [phone] PCP - General Physician Petrologist 08/04/24 documented as of this encounter
--- OUTSIDE RECORDS SUMMARY | 2025-05-05 17:20 | XMS_ITS | Encounter Summary ---
Author Organization [facility] Address [address] [place] [address] Care Team Providers Care Television Operator Name Role Phone Ivone Brown Primary Care Provider [phone] Reason for Visit * Reason Comments Medication Refill Encounter Details Date Type Department Care Team (Late st Contact Info) Description 12/25/2021 Refill [facility] [place] [address] [address] Perla Gomez PA [address] [place] [phone] Medication Refill Social History Tobacco Use [...] documented as of this encounter Care Teams Television Operator Relationship Specialty Start Date End Date Ivone Brown PA [address] [place] [address] PCP - General Physician Field Services Manager 08/04/24 documented as of this encounter
--- OUTSIDE RECORDS SUMMARY | 2025-05-05 17:20 | XMS_ITS | Encounter Summary ---
Author Organization [facility] [employer] [facility] and [facility] Address [address] [place] [address] Care Team Providers Care Mobile Ui/Ux Designer Name Role Phone Ivone Brown Primary Care Provider [phone] Reason for Visit * Reason Comments Medication Refill Encounter Details Date Type Department Care Team (Late st Contact Info) Description 12/02/2021 Refill [facility] [address] [address] Sanjuanita Sharp PA [address] [place] [address] Medication Refill Social History Tobacco [...] documented as of this encounter Care Teams Mobile Ui/Ux Designer Relationship Specialty Start Date End Date Ivone Brown PA [address] [place] [address] PCP - General Physician Shipwright Supervisor 08/04/24 documented as of this encounter
--- OUTSIDE RECORDS SUMMARY | 2025-05-05 17:20 | XMS_ITS | Encounter Summary ---
Author Organization [facility] Address [address] [place] [address] Care Team Providers Care Coremaking Machine Operator Name Role Phone Ivone Brown Primary Care Provider [phone] Encounter Details Date Type Department Care Team (Late st Contact Info) Description 08/23/2020 Scanned Document [facility] Rheumatology [address] [place], [place] [phone] Rigoberto Bautista MD [address] [place], [place] [address] [place] [address] Social History Tobacco Use Types [...] documented as of this encounter Care Teams Coremaking Machine Operator Relationship Specialty Start Date End Date Ivone Brown PA [address] [place] [phone] PCP - General Physician Cause Analyst 08/04/24 documented as of this encounter
--- OUTSIDE RECORDS SUMMARY | 2025-05-05 17:20 | XMS_ITS | Encounter Summary ---
Author Organization [facility] Address [address] [place] [address] Phone Care Team Providers Care Health It Specialist Name Role Phone Ivone Brown Primary Care Provider [phone] Reason for Visit * Reason Comments Medication Refill Encounter Details Date Type Department Care Team (Late st Contact Info) Description 12/18/2022 Refill [facility] [address] [address] Shannon Nunn MD [address] [place], [place] [phone] Medication Refill Social History Tobacco Use Types [...] documented as of this encounter Care Teams Health It Specialist Relationship Specialty Start Date End Date Ivone Brown PA [address] [place] [address] PCP - General Physician Care Professionals 08/04/24 documented as of this encounter
--- OUTSIDE RECORDS SUMMARY | 2025-05-05 17:20 | XMS_ITS | Encounter Summary ---
Author Organization [facility] [employer] [facility] and [facility] Address [address] [place] [phone] Care Team Providers Care Building Cleaning Supervisor Name Role Phone Ivone Brown Primary Care Provider [phone] Encounter Details Date Type Department Care Team (Late st Contact Info) Description 12/07/2020 Scanned Document [facility] [address] [place] [address] Miguel Angel, RN Social History Tobacco Use [...] PM EDT R/O COVID-19 04/06/2021 04/06/2021 04/06/2021 3:3 5 PM EDT R/O Respiratory Virus 04/09/2022 04/09/20222021 6:39 PM EDT R/O COVID-19 04/09/2022 04/09/2022 04/09/2022 6:39 PM EDT documented as of this encounter Care Teams Building Cleaning Supervisor Relationship Specialty Start Date End Date Ivone Brown PA [address] [place] [phone] PCP - General Physician Airplane Patroller 08/04/24 documented as of this encounter
== END 2025-05-05 14:11 | disposition home or self-care (01) ==
LOC: HO.HMCFMS 13:26
PROVIDERS: PCP Student in an Organized Health Care Education/Training Program; Visit Provider Student in an Organized Health Care Education/Training Program
DX: K57.32 Diverticulitis of large intestine without perforation or abscess without bleeding (principal); K46.9 Unspecified abdominal hernia without obstruction or gangrene; Z68.38 Body mass index [BMI] 38.0-38.9, adult; E27.8 Other specified disorders of adrenal gland

== ENCOUNTER → 2025-05-05 13:25 | Outpatient (BNVA) | payer OTHER, SELFPAY | PROVIDERS: PCP Family Medicine; Visit Provider Student in an Organized Health Care Education/Training Program | DX: K57.32 Diverticulitis of large intestine without perforation or abscess without bleeding (principal); K46.9 Unspecified abdominal hernia without obstruction or gangrene; E27.8 Other specified disorders of adrenal gland | CPT/HCPCS: 99495 ==

== ENCOUNTER 2025-06-09 07:38 | Day surgery (SDC) | payer OTHER, SELFPAY ==
--- OUTSIDE RECORDS SUMMARY | 2025-05-01 10:04 | XMS_ITS | Encounter Summary ---
Author Organization [facility] Address [address] [place] [address] Care Team Providers Care Motion Picture Set Worker Name Role Phone Ivone Brown Primary Care Provider Reason for Visit * Reason Comments Medication Refill Encounter Details Date Type Department Care Team (Late st Contact Info) Description 03/03/2022 Refill [facility] [employer] [place] [address] [address] Perla Gomez PA [address] [place] [phone] Medication Refill Social History Tobacco Use [...] documented as of this encounter Care Teams Motion Picture Set Worker Relationship Specialty Start Date End Date Ivone Brown PA [address] [place] [address] PCP - General Physician Methods Specialist Engineer 08/04/24 documented as of this encounter
--- OUTSIDE RECORDS SUMMARY | 2025-05-01 10:04 | XMS_ITS | Encounter Summary ---
Author Organization [facility] [employer] and [facility] Address [address] [place] [phone] Care Team Providers Care International Account Manager Name Role Phone Ivone Brown Primary Care Provider [phone] Reason for Visit * Reason Comments Medication Refill Encounter Details Date Type Department Care Team (Late st Contact Info) Description 10/22/2021 Refill [facility] [address] [address] Sanjuanita Sharp PA [address] [place] [address] Medication Refill Social History Tobacco [...] documented as of this encounter Care Teams International Account Manager Relationship Specialty Start Date End Date Ivone Brown PA [address] [place] [address] PCP - General Physician Water Tester 08/04/24 documented as of this encounter
--- OUTSIDE RECORDS SUMMARY | 2025-05-01 10:04 | XMS_ITS | Encounter Summary ---
Author Organization [facility] Address [address] [place] [address] Phone Care Team Providers Care Test Tube Maker Name Role Phone Ivone Brown Primary Care Provider [phone] Reason for Visit * Reason Comments Medication Refill Encounter Details Date Type Department Care Team (Late st Contact Info) Description 01/19/2022 Refill [facility] [address] [address] Shannon Nunn MD [address] [place], [place] [phone] Medication Refill Social History Tobacco Use Types [...] documented as of this encounter Care Teams Test Tube Maker Relationship Specialty Start Date End Date Ivone Brown PA [address] [place] [address] PCP - General Physician Ear Nose Throat Physician 08/04/24 documented as of this encounter
--- OUTSIDE RECORDS SUMMARY | 2025-05-01 10:04 | XMS_ITS | Encounter Summary ---
Author Organization [facility] Address [address] [place] [address] Care Team Providers Care Swimming Teacher Name Role Phone Ivone Brown Primary Care Provider [phone] Reason for Visit * Reason Comments Medication Refill Encounter Details Date Type Department Care Team (Late st Contact Info) Description 01/06/2022 Refill [facility] [place] [address] [address] Perla Gomez PA [address] [place] [phone] Medication Refill Social History Tobacco Use [...] documented as of this encounter Care Teams Swimming Teacher Relationship Specialty Start Date End Date Ivone Brown PA [address] [place] [address] PCP - General Physician Professor Of Mathematics 08/04/24 documented as of this encounter
--- OUTSIDE RECORDS SUMMARY | 2025-05-01 10:04 | XMS_ITS | Encounter Summary ---
Author Organization [facility] Address [address] [place] [address] Phone Care Team Providers Care Test Tech Name Role Phone Ivone Brown Primary Care Provider [phone] Reason for Visit * Reason Comments Medication Refill Encounter Details Date Type Department Care Team (Late st Contact Info) Description 12/18/2022 Refill [facility] [address] [address] Shannon Nunn MD [address] [place], [place] [phone] Medication Refill Social History Tobacco Use Types [...] as of this encounter Care Teams Test Tech Relationship Specialty Start Date End Date Ivone Brown PA [address] [place] [address] PCP - General Physician Bilingual Customer Service Specialist 08/04/24 documented as of this encounter
--- OUTSIDE RECORDS SUMMARY | 2025-05-01 10:04 | XMS_ITS | Encounter Summary ---
Author Organization [facility] Address [address] [place] [address] Phone Care Team Providers Care Box Worker Name Role Phone Ivone Brown Primary Care Provider [phone] Reason for Visit * Reason Comments Medication Refill Encounter Details Date Type Department Care Team (Late st Contact Info) Description 02/13/2023 Refill [facility] [address] [address] Shannon Nunn MD [address] [place], [place] [phone] Medication Refill Social History Tobacco Use Types [...] documented as of this encounter Care Teams Box Worker Relationship Specialty Start Date End Date Ivone Brown PA [address] [place] [address] PCP - General Physician Machine Folder 08/04/24 documented as of this encounter
--- OUTSIDE RECORDS SUMMARY | 2025-05-01 10:04 | XMS_ITS | Encounter Summary ---
Author Organization [facility] [employer] and [facility] Address [address] [place] [address] Care Team Providers Care Regulator Inspector Name Role Phone Ivone Brown Primary Care Provider Reason for Visit * Reason Comments Medication Refill Encounter Details Date Type Department Care Team (Late st Contact Info) Description 09/26/2021 Refill [facility] [address] [address] Sanjuanita Sharp PA [address] [place] [address] Medication Refill Social History Tobacco [...] documented as of this encounter Care Teams Regulator Inspector Relationship Specialty Start Date End Date Ivone Brown PA [address] [place] [address] PCP - General Physician Stock Analyst 08/04/24 documented as of this encounter
--- OUTSIDE RECORDS SUMMARY | 2025-05-01 10:04 | XMS_ITS | Encounter Summary ---
Author Organization [facility] Address [address] [place] [address] Care Team Providers Care Commercial Real Estate Appraiser Name Role Phone Ivone Brown Primary Care Provider [phone] Reason for Visit * Reason Comments Medication Refill Encounter Details Date Type Department Care Team (Late st Contact Info) Description 01/19/2022 Refill [facility] [place] [address] [address] Perla Gomez PA [address] [place] [phone] Medication Refill Social History Tobacco Use [...] as of this encounter Care Teams Commercial Real Estate Appraiser Relationship Specialty Start Date End Date Ivone Brown PA [address] [place] [address] PCP - General Physician Brim Raiser 08/04/24 documented as of this encounter
--- OUTSIDE RECORDS SUMMARY | 2025-05-01 10:04 | XMS_ITS | Encounter Summary ---
Author Organization [facility] Address [address] [place] [address] Phone Care Team Providers Care Lead Radiation Therapist Name Role Phone Ivone Brown Primary Care Provider Reason for Visit * Reason Comments Medication Refill Encounter Details Date Type Department Care Team (Late st Contact Info) Description 03/06/2023 [place] [address] Shannon Nunn MD [address] [place], [place] [phone] Medication Refill Social History Tobacco Use Types [...] documented as of this encounter Care Teams Lead Radiation Therapist Relationship Specialty Start Date End Date Ivone Brown PA [address] [place] [address] PCP - General Physician Retail Store Clerk 08/04/24 documented as of this encounter
--- OUTSIDE RECORDS SUMMARY | 2025-05-01 10:04 | XMS_ITS | Encounter Summary ---
Author Organization [facility] Address [address] [place] [address] Care Team Providers Care Mid Level Practitioner Name Role Phone Ivone Brown Primary Care Provider [phone] Reason for Visit * Reason Comments Medication Refill Encounter Details Date Type Department Care Team (Late st Contact Info) Description 12/25/2021 Refill [facility] [place] [address] [address] Perla Gomez PA [address] [place] [phone] Medication Refill Social History Tobacco Use [...] documented as of this encounter Care Teams Mid Level Practitioner Relationship Specialty Start Date End Date Ivone Brown PA [address] [place] [address] PCP - General Physician Vault Installer 08/04/24 documented as of this encounter
--- OUTSIDE RECORDS SUMMARY | 2025-05-01 10:04 | XMS_ITS | Encounter Summary ---
Author Organization [facility] [employer] and [facility] Address [address] [place] [phone] Care Team Providers Care School Crossing Guard Name Role Phone Ivone Brown Primary Care Provider [phone] Reason for Visit * Reason Comments Medication Refill Encounter Details Date Type Department Care Team (Late st Contact Info) Description 11/22/2021 Refill [facility] [address] [address] Sanjuanita Sharp PA [address] [place] [address] Medication Refill Social History Tobacco [...] documented as of this encounter Care Teams School Crossing Guard Relationship Specialty Start Date End Date Ivone Brown PA [address] [place] [address] PCP - General Physician Day Care Aide 08/04/24 documented as of this encounter
--- OUTSIDE RECORDS SUMMARY | 2025-05-01 10:04 | XMS_ITS | Encounter Summary ---
Author Organization [facility] [employer] and [facility] Address [address] [place] [address] Care Team Providers Care Alligator Trapper Name Role Phone Ivone Brown Primary Care Provider [phone] Reason for Visit * Reason Comments Medication Refill Encounter Details Date Type Department Care Team (Late st Contact Info) Description 12/02/2021 Refill [facility] [address] [address] Sanjuanita Sharp PA [address] [place] [address] Medication Refill Social History Tobacco [...] documented as of this encounter Care Teams Alligator Trapper Relationship Specialty Start Date End Date Ivone Brown PA [address] [place] [address] PCP - General Physician Prison Guard Supervisor 08/04/24 documented as of this encounter
--- OUTSIDE RECORDS SUMMARY | 2025-05-01 10:04 | XMS_ITS | Encounter Summary ---
Author Organization [facility] [employer] and [facility] Address [address] [place] [address] Care Team Providers Care Cutting Machine Operator Name Role Phone Ivone Brown Primary Care Provider [phone] Encounter Details Date Type Department Care Team (Latest Contact Info) Description 01/05/2022 Transcribed Orders [place] [address] Zaheer Mcdaniel MD MPH [address] [facility] [address] [place] [address] Severe obesity (HC Code) (HC [...] 8:42 AM EDT) Heart Rate 66 bpm [facility] ECG QRS Duration 90 ms [facility] ECG Q-T Interval 412 ms [facility] ECG QTC Calculation(Be zet) 431 ms [facility] ECG P [place] 41 deg [facility] ECG R [place] 70 deg [facility] ECG T [place] 31 deg [facility] ECG P-R Interval 150 msec [facility] ECG SEVERITY Normal ECG severity [facility] ECG Comment::Normal sinus rhythm :Normal ECG:Electronically Signed On 01-05-2022 18:52:20 EDT by AR METZ MD 01/05/2022 8:42 AM EDT us Zaheer Mcdaniel MD MPH ECG ORDERABLES Final Resul t [facility] ECG documented in this encounter Visit [...] documented as of this encounter Care Teams Cutting Machine Operator Relationship Specialty Start Date End Date Ivone Brown PA [address] [place] [phone] PCP - General Physician Steam Pressure Chamber Operator 08/04/24 documented as of this encounter
--- OUTSIDE RECORDS SUMMARY | 2025-05-01 10:04 | XMS_ITS | Encounter Summary ---
Author Organization [facility] [employer] and [facility] Address [address] [place] [phone] Care Team Providers Care Shingle Grader Name Role Phone Ivone Brown Primary Care Provider [phone] Reason for Visit * Reason Comments Medication Refill Encounter Details Date Type Department Care Team (Late st Contact Info) Description 08/20/2021 Refill [facility] [address] [address] Sanjuanita Sharp PA [address] [place] [address] Medication Refill Social History Tobacco [...] documented as of this encounter Care Teams Shingle Grader Relationship Specialty Start Date End Date Ivone Brown PA [address] [place] [address] PCP - General Physician Occupational Analyst 08/04/24 documented as of this encounter
--- OUTSIDE RECORDS SUMMARY | 2025-05-01 10:05 | XMS_ITS | Patient Health Record ---
Author Organization [facility], Address [address] [place] [address] Support Name Relationship Address Phone Joaquin Crenshaw Guarantor Unknown Reason For Referral No Information Problems No Known Problems Plan Of Treatment No Information Insurance Providers Payer Name Payer Address Payer Phone Subscriber Number Group Number Insured Name Patient Relationship to Insured Coverage Start Date Coverage End Date Medicaid of [place] [address] [place] [address] [id number] Joaquin Crenshaw Self - patient is the insured
--- OUTSIDE RECORDS SUMMARY | 2025-05-01 10:05 | XMS_ITS | Encounter Summary ---
Author Organization [facility] [employer] and [facility] Address [address] [place] [phone] Care Team Providers Care End Touching Machine Operator Name Role Phone Ivone Brown Primary Care Provider [phone] Encounter Details Date Type Department Care Team (Late st Contact Info) Description 12/07/2020 Scanned Document [facility] [address] [place] [address] Miguel Angel, RN Social History Tobacco Use [...] documented as of this encounter Care Teams End Touching Machine Operator Relationship Specialty Start Date End Date Ivone Brown PA [address] [place] [phone] PCP - General Physician Data Entry Representative 08/04/24 documented as of this encounter
--- OUTSIDE RECORDS SUMMARY | 2025-05-01 10:05 | XMS_ITS | Clinical Summary ---
Author Organization [address] Address [address] [place] [phone] Phone Care Team Providers Care Billet Heater Operator Name Role Phone Ivone Brown Primary Care Provider [phone] Allergies Active Allergy Reactions Criticality Noted Date Comments Asa-Calcium Betl-Ozb-Gjmynsqr Shortness Of Breath High 01/14/2019 Aspirin 01/17/2019 [...] your living situation today? I have a [facility] place to live 08/04/2024 Housing Stability [...] 136 - 144 mmol/L 03/27/2024 10:00 AM [facility] Potassium 3.9 3.3 - 5.3 mmol/L 03/27/2024 10:00 AM T [facility] Chloride 106 98 - 107 mmol/L 03/27/2024 10:00 AM T [facility] CO2 28 20 - 30 mmol/L 03/27/2024 10:00 AM [facility] Anion Gap 6(L) 7 - 17 03/27/2024 10:00 AM [facility] Glucose 88 70 - 100 mg/dL 03/27/2024 10:00 AM [facility] BUN 15 6 - 20 mg/dL 03/27/2024 10:00 AM [facility] Creatinine 0.67 0.40 - 1.30 mg/dL 03/27/2024 10:00 AM [facility] Calcium 8.8 8.8 - 10.2 mg/dL 03/27/2024 10:00 AM [facility] BUN/Creatinine Ratio 22.4 8.0 - 23.0 03/27/2024 10:00 AM [facility] Total Protein 6.6 5.9 - 8.3 g/dL 024 10:00 AM [facility] Comment:As of 2023, th e reference interval for Total Protein has been changed from (6.6 to 8.7 g/dL) to (5.9 to 8.3 g/dL). Albumin 3.5(L) 3.6 - 5.1 g/dL 03/27/2024 10:00 AM [facility] Comment:As of 2023, th e reference interval for Albumin has been changed from (3.6 to 4.9 g/dL) to (3.6 to 5.1 g/dL). Total Bilirubin 0.4 <=1.2 mg/dL 03/27/20 24 10:00 AM [facility] Alkaline Phosphatase 67 9 - 122 U/L 03/27/2024 10:00 AM [facility] Alanine Aminotransferase (ALT) 16 10 - 35 U/L 03/27/2024 10:00 AM [facility] Comment:Calcium dobesilate c an cause artificially low ALT results at therapeutic concentrations Aspartate Aminotransferase (AST) 20 10 - 35 U/L 03/27/2024 10:00 AM [facility] Globulin 3.1 2.0 - 3.9 g/dL 03/27/2024 10:00 AM [facility] Comment:As of 2023, th e reference interval for Globulin has been changed from (2.3 to 3.5 g/dL) to (2.0 to 3.9 g/dL). A/G Ratio 1.1 1.0 - 2.2 03/27/2024 10:00 AM [facility] AST/ALT Ratio 1.3 Reference Range Not Established 03/27/2024 10:00 AM [facility] eGFR (Creatinine) >60 >=60 mL/min/1.73m2 03/27/2024 10:00 AM EDT [facility] Comment: [facility] utilizes CKD-EPI Creatinine 2020 to report eGFR. Values < 60 mL/min/1.73 m2 may indicate CKD if present for more than three months AND creatinine is at steady state. The eGFR provides a rough estimate of kidney function. For further guidance, please refer to the CKD: Adult Supervisor Carbon Electrodes Signature pathway. Blood Venipuncture / Unknown 03/27/2024 9:23 AM EDT 03/27/2024 9:33 AM EDT us Breana Estrada MD LAB BLOOD ORDERABLES Fin al Result [address] [phone] * Colonoscopy (02/22/2021 7:24 AM EDT) Colonoscopy Endoscopy Patient Name: Joaquin De León Procedure Date: 02/22/2021 7:24 AM Date of : 1980 Age: 40 Gender: Female Admit Type: Outpatient [facility] #: [id number] Note Status: Finalized Attending MD: Radha Mckeon [...] oxygen saturations were monitored continuously. The [id number] [id number] was introduced through the anus and advanced to the cecum, identified by appendiceal orifice and ileocecal valve. The colonoscopy was performed without difficulty. The patient tolerated the procedure well. The quality of the bowel preparation was evaluated using the BBPS ([place] Bowel Preparation Scale) with scores of: Right [...] pathology results. Procedure Code(s): --- Professional --- 80488, Colonoscopy, flexible; with removal of tumor(s), polyp(s), or other lesion(s) by snare technique Diagnosis Code(s): --- Professional --- Z80.0, Family history of malignant neoplasm of digestive organs K63.5, Polyp of colon K64.8, Other hemorrhoids K57.30, Diverticulosis of large intestine without perforation or abscess without bleeding CPT copyright 2020 [employer]. All rights reserved. The codes documented in this report are preliminary and upon curtain inspector review may be revised to meet current compliance requirements. Attending Participation: I was present and participated during the entire procedure, including non-carrasquillo portions. ___ Radha Mckeon MD 02/22/2021 1:44:31 PM This report has been signed electronically. Number of Addenda: 0 Note Initiated On: 02/22/2021 7:24 AM Estimated Blood Loss: Estimated blood loss was minimal. Scope In: Scope Out: [facility] 02/22/2021 7:24 AM EDT us Shannon Nunn MD GI PROCEDURE ORDERABLES Final Result [facility] * Cholesterol, total (01/24/2021 10:51 AM EDT) Cholesterol, Total 147 <200 mg/dL [facility] Blood 01/24/2021 10:5 1 AM EDT 01/24/2021 10:52 AM EDT Narrative [facility] - 01/29/2021 11:40 AM EDT FASTING:YES FASTING: YES Resulting Agency Comment Performing Lab: Site ID: [id number] Name: [facility] Address: [address] [place] [address], [place] [address] Director: Bianca Senior M.D. us Zaheer Mcdaniel MD MPH LAB BLOOD ORDERABLES Final Result Performing Organization Address City/[facility] Co de Phone Number [facility] [address] [place] [address] from Last 3 Months or Most Recently Relevant to Health Maintenance Insurance [place]ICAID [place] Advance Directives * Full ACLS (Latest Code Status on File) Date Activated Date Inactivated Comments 01/17/2022 6:12 PM 01/20/2022 2:42 PM Care Teams Billet Heater Operator Relationship Specialty Start Date End Date Ivone Brown PA [address] [place] [address] PCP - General Physician Dance Historian 08/04/24
--- OUTSIDE RECORDS SUMMARY | 2025-05-01 10:05 | XMS_ITS | Encounter Summary ---
Author Organization [facility] and [facility] Address [address] [place] [phone] Care Team Providers Care Medical Scientific Officer Name Role Phone Ivone Brown Primary Care Provider [phone] Encounter Details Date Type Department Care Team (Late st Contact Info) Description 10/04/2020 Scanned Document [facility] at [address] [employer] [place] [address] Zaheer Mcdaniel MD MPH [address] [place] [address] Social History Tobacco Use Types [...] as of this encounter Care Teams Medical Scientific Officer Relationship Specialty Start Date End Date Ivone Brown PA [address] [place] [phone] PCP - General Physician Director Internal Control 08/04/24 documented as of this encounter
--- OUTSIDE RECORDS SUMMARY | 2025-05-01 10:05 | XMS_ITS | Encounter Summary ---
Author Organization [facility] [employer] and [facility] Address [address] [place] [address] Care Team Providers Care Emotional Disabilities Teacher Name Role Phone Ivone Brown Primary Care Provider Encounter Details Date Type Department Care Team (Late st Contact Info) Description 08/23/2020 Scanned Document [facility] [address] [facility] [address] [facility] [address] [place] [address] Perla Gomez PA [address] [place] [address] Social History Tobacco Use Types [...] documented as of this encounter Care Teams Emotional Disabilities Teacher Relationship Specialty Start Date End Date Ivone Brown PA [address] [place] [phone] PCP - General Physician Leather Grainer 08/04/24 documented as of this encounter
--- OUTSIDE RECORDS SUMMARY | 2025-05-01 10:05 | XMS_ITS | Encounter Summary ---
Author Organization [facility] Address [address] [place] [address] Phone Care Team Providers Care Latex Foam Worker Name Role Phone Ivone Brown Primary Care Provider [phone] Encounter Details Date Type Department Care Team (Late st Contact Info) Description 08/05/2024 Documentation [facility] [address] [place] [address] Edna Downs LMSW Social History Tobacco Use [...] documented as of this encounter Care Teams Latex Foam Worker Relationship Specialty Start Date End Date Ivone Brown PA [address] [place] [address] PCP - General Physician Senior Business Development Manager 08/04/24 documented as of this encounter
--- OUTSIDE RECORDS SUMMARY | 2025-05-01 10:05 | XMS_ITS | Encounter Summary ---
Author Organization [facility] [employer] and [facility] Address [address] [place] [address] Care Team Providers Care Marketer Name Role Phone Ivone Brown Primary Care Provider [phone] Reason for Visit * Reason Onset Date Comments Medication Refill 07/10/2023 Encounter Details Date Type Department Care Team (Late st Contact Info) Description 07/10/2023 Refill [facility] at [address] [place], [place] [address] Zaheer Mcdaniel MD MPH [address] [place] [address] Medication Refill Social History Tobacco [...] documented as of this encounter Care Teams Marketer Relationship Specialty Start Date End Date Ivone Brown PA [address] [place] [address] PCP - General Physician Stencil Typist 08/04/24 documented as of this encounter
--- OUTSIDE RECORDS SUMMARY | 2025-05-01 10:05 | XMS_ITS | Encounter Summary ---
Author Organization [facility] Address [address] [place] [address] Care Team Providers Care Bail Agent Name Role Phone Ivone Brown Primary Care Provider [phone] Encounter Details Date Type Department Care Team (Late st Contact Info) Description 08/23/2020 Scanned Document [facility] Rhe[facility] [address] [place], [place] [id number] Rigoberto Bautista MD [address] [place], [place] [address] [place] [address] Social History Tobacco Use Types [...] documented as of this encounter Care Teams Bail Agent Relationship Specialty Start Date End Date Ivone Brown PA [address] [place] [phone] PCP - General Physician Community Coordinator For [employer] 08/04/24 documented as of this encounter
--- NOTE | 2025-06-03 09:34 | HO.ANESPROP2 ---
Documented by User: Emeli Abebe NP 06/03/25 09:44 HPI - Anesthesia Eval Consult details Narrative: 44 yr old female for upper endo zapien Inpt at [facility] for acute diverticulitis 05/02/25 LUIS FERNANDO PMFSH Active Problems Active Problems: All Active Problems (Updated 05/10/25 @ 00:00 by [facility]) Hernia (Acute) Adrenal mass (Acute) Hyperlipidemia (Acute) GERD (gastroesophageal reflux disease) (Acute) BMI 38.0-38.9,adult (Acute) Obesity (BMI 30-39.9) (Acute) Vitamin D insufficiency (Acute) LUIS FERNANDO (obstructive sleep apnea) (Acute) Abdominal pain (Acute) Past Medical History Medical History Hernia Hyperlipidemia GERD (gastroesophageal reflux disease) BMI 38.0-38.9,adult Vitamin D insufficiency PTSD (post-traumatic stress disorder) Epigastric pain Severe obesity LUIS FERNANDO (obstructive sleep apnea) Depression Panic disorder Morbid obesity Abdominal pain Family History Family History Father High cholesterol High triglycerides High blood pressure Stroke Mother Uterus cancer High blood pressure Glaucoma (increased eye pressure) Lupus (systemic lupus erythematosus) Surgical History Surgical History H/O colonoscopy S/P laparoscopic surgery H/O endoscopy Hx laparoscopic cholecystectomy Bariatric surgery status S/P gastric sleeve procedure Social History Social History Household Members: Family Housing: House Do you presently have visiting nurse or other home services: No Alcohol intake: current Alcohol intake frequency: does not drink Patient Tobacco Use Status: Never used Tobacco e-Cigarette/Vaping Use: Never Used Use of substances other than those prescribed or required for medical reasons: No Advance Directives: No Advance Directives Information Provided: Yes service: No Current occupational status: employed Cognitive needs: No Hearing needs: No Vision needs: No Meds Allergies Allergy/AdvReac Type Severity Reaction Status Date / Time Penicillins Allergy Severe Anaphylaxis Verified 06/09/25 07:22 shellfish derived (shellfish) Allergy Severe Anaphylaxis Verified 06/09/25 07:22 Home Medications ?Medication ?Instructions ?Recorded ?Confirmed ?Last Taken ?Type multivitamin 1 tab PO DAILY 04/28/25 06/09/25 04/27/25 History omega-3 fatty acids 1,000 mg 1,000 mg PO DAILY 04/28/25 06/09/25 04/27/25 History capsule omeprazole 20 mg capsule,delayed 20 mg PO DAILY 06/05/25 06/09/25 Unknown History release Exam Pertinent Lab Results Pertinent Lab Results: Laboratory Tests 04/30/25 07:23 WBC 7.4 RBC 4.25 Hgb 10.9 L Hct 34.4 L Plt Count 243 Sodium 139 Potassium 3.6 Chloride 105 Carbon Dioxide 25 BUN 8 L Creatinine 0.59 Assessment and Plan Assessment Anesthesia Assessment: Chart Reviewed Documented by User: Ruthy Leon MD 06/09/25 08:19 [facility] Past Medical History Medical History Hernia Hyperlipidemia GERD (gastroesophageal reflux disease) BMI 38.0-38.9,adult Vitamin D insufficiency PTSD (post-traumatic stress disorder) Epigastric pain Severe obesity LUIS FERNANDO (obstructive sleep apnea) Depression Panic disorder Morbid obesity Abdominal pain Family History Family History Father High cholesterol High triglycerides High blood pressure Stroke Mother Uterus cancer High blood pressure Glaucoma (increased eye pressure) Lupus (systemic lupus erythematosus) Surgical History Surgical History H/O colonoscopy S/P laparoscopic surgery H/O endoscopy Hx laparoscopic cholecystectomy Bariatric surgery status S/P gastric sleeve procedure History of Problems with Anesthesia: No Social History Social History Household Members: Family Housing: House Do you presently have visiting nurse or other home services: No Alcohol intake: current Alcohol intake frequency: does not drink Patient Tobacco Use Status: Never used Tobacco e-Cigarette/Vaping Use: Never Used Use of substances other than those prescribed or required for medical reasons: No Advance Directives: No Advance Directives Information Provided: Yes service: No Current occupational status: employed Cognitive needs: No Hearing needs: No Vision needs: No Meds Allergies Allergy/AdvReac Type Severity Reaction Status Date / Time Penicillins Allergy Severe Anaphylaxis Verified 06/09/25 07:22 shellfish derived (shellfish) Allergy Severe Anaphylaxis Verified 06/09/25 07:22 Home Medications ?Medication ?Instructions ?Recorded ?Confirmed ?Last Taken ?Type multivitamin 1 tab PO DAILY 04/28/25 06/09/25 04/27/25 History omega-3 fatty acids 1,000 mg 1,000 mg PO DAILY 04/28/25 06/09/25 04/27/25 History capsule omeprazole 20 mg capsule,delayed 20 mg PO DAILY 06/05/25 06/09/25 Unknown History release Exam Airway Mallampati Class: II TM Dist: >3cm Neck ROM: Full Loose/Missing/Broken Teeth: No Heart: RRR Lungs: CTA Assessment and Plan Assessment Anesthesia Assessment: Anesthesia Plan Discussed Final Anesthetic Review History of Problems with Anesthesia: No NPO: Yes ASA Class: III Final Preanesthetic Review: Meds/Allgs Chart Reviewed, Consent Obtained/Reviewed and Anes Risks/Benef Reviewed Patient Risk: Intermediate Procedure Risk: Intermediate Anesthetic Plan Anesthetic Plan: MAC: Disposition: Standard PACU
[2025-06-05 09:54] VITALS: BMI 38.2
[2025-06-09 07:26] VITALS: BMI 39.0
[2025-06-09 07:35] VITALS: BP 127/70; PULSE 72; RESP 18; TEMP 36.3; O2SAT 98
[2025-06-09 07:41] LABS: UPreg QC Valid YES
--- NOTE | 2025-06-09 08:18 | MHC.SHP ---
Pre-Procedural Eval Section A - 24 Hr Update-Section A only Date of Service: 06/09/25 The patient is an INPATIENT: No The patient has been examined within 24 hours of the surgical procedure. The History & Physical has been completed within 30 days and I have reviewed it.: Yes Section B - Complete if H&P > 30 days Chief Complaint: gerd, Relevant Family History (Specify if Yes): No Relevant Social History: None Present Medications: None Medical History: No relevant PMH History of Previous Operations: Relevant previous surgery/procedure and date(s) (Lap sleeve gastrectomy) Allergies: Allergies Allergy/AdvReac Type Severity Reaction Status Date / Time Penicillins Allergy Severe Anaphylaxis Verified 06/09/25 07:22 shellfish derived (shellfish) Allergy Severe Anaphylaxis Verified 06/09/25 07:22 Review of Systems Sugical H&P ROS: Negative: Constitution, Cardiovascular, Respiratory, Neurological, Psychiatric, Hem-Onc, Allergic/Immunologic, Gastrointestinal, Genitourinary, Musculoskeletal, Integumentary, Endocrine and Eyes/Ears/Nose/Throat Exam Surgical H&P Exam: Normal: HEENT, Normal: Heart, Normal: Lungs, Normal: Extremities, Normal: Abdomen, Normal: Skin and Normal: Neurological Plan Diagnosis/Plan: Unchanged (EGD to assess etiology of GERD. Risks of bleeding and perforation were discussed with the patient and she is in agreement with the plan.) I have reviewed the history and physical and performed a pertinent physical examination on my patient. No changes have occurred unless specified. Time Spent With Patient Time: Total time managing care of this patient today ____ minutes.
[2025-06-09 09:22] VITALS: BP 138/69; PULSE 72; RESP 15; TEMP 36.4; O2SAT 100
--- NOTE | 2025-06-09 09:23 | PM.OP ---
Brief Operative Note Date of Service: 06/09/25 Pre-op diagnosis: s/p sleeve gastrectomy, GERD Post-op diagnosis: same Procedure: PROCEDURE DATE: 06/09/2025 PREOPERATIVE DIAGNOSIS: GERD POSTOPERATIVE DIAGNOSIS: ?Same as above. 1) 5cm hiatal hernia, 2) significant fundal redundancy, 3) bile reflux PROCEDURE: Qubmtmnb-[id number] with biopsies and attempted Guzman procedure Surgeon: ?Camilo Crow M.D.. Ph.D. Torch Straightener And Heater: None ? Anesthesia: IV sedation Estimated blood loss: ?Minimal FINDINGS AND PROCEDURE: ? OPERATIVE INDICATIONS: ?The patient is a 44 year old female who had a sleeve gastrectomy elsewhere and was referred to me for persistent GERD despite use of PPIs. The patient has severe GERD. Based on this information I recommended an upper endoscopy with the Guzman procedure to evaluate the patient's symptoms and assess her GERD. Risks and complications of the surgery were discussed with the patient in advance particularly the possibility of perforation or bleeding that may require surgical intervention. The patient understood the risks and was in agreement with the plan. ? PROCEDURE: After informed consent was obtained by the patient, the patient was ?transferred to the Operating Room and was placed in the supine position.? After successful induction of IV sedation, a mouth block was inserted and the patient was placed in the left lateral decubitus position. An upper endoscopy was performed next, the oropharynx and esophagus appeared within the normal limits. There was a 5cm hiatal hernia (hiatus at 40cm and z-line at 35cm. The z-line was smooth. Two biopsies were obtained from the distal esophagus 2-3 cm proximal to the GE junction and two additional biopsies from the GE junction. The stomach was entered. The proximal sleeve was significantly redundant. The distal sleeve had an even caliber without a stricture. There was moderate amount of bile reflux. There was no stricture or ulcer. A biopsy was obtained from the distal antrum. No significant bleeding was noted from any of the biopsy sites. The scope was then advanced into the duodenum to the 4th portion, which appeared to be normal as well. At that point the duodenum ?and the stomach were decompressed and the scope was withdrawn to the GE junction. We measured 6 cm proximal from the GEJ and that was about 30cm from incisors. The scope was withdrawn from the mouth and the Guzman device was introduced to 30cm from incisors. The scope was re-introduced to confirm that the probe was in the esophagus and it was. The scope was withdrawn from the patient's mouth. Suction was connected to the device and was kept on for 45sec. At that point the device was deployed without difficulty and the remaining of the device was withdrawn from the patient's mouth without difficulty. The endoscope was re-introduced but the device was not seen anywhere in the esophagus, stomach, duodenum or pharynx. The patient was intubated and a bronchoscopy was also performed that did not identify the device in the airway. Eventualy the device was found at the patient's bed outside the patient's body. At that point the procedure was ended and the Guzman was not performed. The patient extubated and was transferred in stable condition to the Recovery Room for further care. I was present and performed all steps of the procedure. There were no residents to assist with this case. Camilo Crow M.D., Ph.D. Surgeon: Len Crow MD Anesthesia: GETA and MAC Was an Torch Straightener [employer] Heater used for this Procedure?: No Estimated blood loss (mL): 0 IV fluids (mL): 400 Urine output (mL): 0 (No Luque to record output) Pathology: other () antrum x1, 2) fundus x1, 3) GE junction x2, 4) distal esophagus x2) Condition: stable Disposition: PACU
[2025-06-09 09:27] VITALS: BP 124/59; PULSE 70; RESP 18; O2SAT 97
[2025-06-09 09:32] VITALS: BP 126/72; PULSE 68; RESP 13; O2SAT 96
[2025-06-09 09:37] VITALS: BP 122/67; PULSE 66; RESP 14; O2SAT 97
[2025-06-09 09:51] VITALS: TEMP 36.9
== END 2025-06-09 10:13 | disposition home or self-care (01) ==
PROVIDERS: Nurse Practitioner; PCP Student in an Organized Health Care Education/Training Program; Visit Provider Surgery
PROC: (CPT 43239; principal; 2025-06-09 08:00)
DX: K21.9 Gastro-esophageal reflux disease without esophagitis (principal); K44.9 Diaphragmatic hernia without obstruction or gangrene; K31.89 Other diseases of stomach and duodenum; Z90.3 Acquired absence of stomach [part of]; Z98.84 Bariatric surgery status
CPT/HCPCS: 43239; 81025; 88305; 88312; 88342; J2003; J2250; J2704; J3010

== ENCOUNTER → 2025-06-09 07:38 | Outpatient (BNV) | payer OTHER, SELFPAY | PROVIDERS: PCP Student in an Organized Health Care Education/Training Program; Visit Provider Surgery | DX: K21.9 Gastro-esophageal reflux disease without esophagitis (principal); Z98.84 Bariatric surgery status; K44.9 Diaphragmatic hernia without obstruction or gangrene | CPT/HCPCS: 43239 ==